=== PATIENT | female | born 1935 | race Caucasian/White ===

== ENCOUNTER → 2019-11-20 07:01 | Outpatient (CLI) | payer MEDICARE, SELFPAY ==
[2019-11-10 08:52] VITALS: BMI 28.5
--- NOTE | 2019-11-20 10:33 | STRESSREP_ITS ---
Stress Test Report Exercise myocardial perfusion stress test. 84-year-old lady with a history of chest pain. Stress protocol Resting KG demonstrates sinus bradycardia with a rate of 56 bpm normal intervals are noted resting blood pressure is 142/86 mmHg. Patient exercised according to the regular Yannick protocol for a total duration of 4 minutes. The maximum heart rate was 148 bpm which was 108% of maximum predicted heart rate the maximum workload was 5.8 metabolic equivalents. At rest there were no ST or T wave changes noted suggest ischemia at peak exercise mildly downsloping ST depression was noted in lead III and aVF and upsloping ST depression noted in lead II. No clinical angina was noted the test was terminated due to dyspnea and leg fat igue. No clinical angina was noted. The resting blood pressure was 142/86 with a peak blood pressure 172/70. Myocardial perfusion protocol. 10.0 mCi of technetium 99m sestamibi was injected at rest. The patient exercised according to regular Yannick protocol for 4 minutes. At peak exercise 35.0 mCi of technetium 99m sestamibi was injected stress images were obtained stress and rest images were reconstructed and compared in the short axis vertical and horizontal long axis. Gated images were also obtained Perfusion SPECT analysis: Review of the stress images demonstrate normal uptake of tracer noted in all areas of myocardium the resting images similar demonstrate normal uptake of tracer noted in all areas of myocardium no reversibility is no suggest ischemia no previous infarct is noted per Gated SPECT analysis: The gated ejection fraction is 77%. Conclusion: Normal exercise myocardial perfusion stress test. Low to moderate workload. Preserved ejection fraction.
== END ==
PROVIDERS: PCP Internal Medicine; Referring Provider Internal Medicine Cardiovascular Disease; Visit Provider Internal Medicine Cardiovascular Disease
DX: Z95.1 Presence of aortocoronary bypass graft (principal)
CPT/HCPCS: 78452; 93017; A9500; A4216

== ENCOUNTER → 2020-06-09 15:44 | Outpatient (CLI) | payer MEDICARE, SELFPAY ==
[2020-06-09 12:03] VITALS: BMI 26.7
[2020-06-09 16:04] LABS: Absolute Lymphocyte Count 1.77 X10^3/uL (0.83-4.51); Basophil# 0.05 X10^3/uL; Basophil% 0.6 % (0-1); Eosinophil# 0.21 X10^3/uL; Eosinophils% 2.3 % (0-5); Hematocrit 31.1 % (37-47); Hemoglobin 9.4 g/dL (12.0-15.0); Lymphocyte # 1.77 X10^3/ul (4.0); Lymphocyte % 19.7 % (19-41); Mean Corp Hgb Conc 30.2 g/dL (32-36); Mean Corpuscular Volume 79.3 fL (81-99); Mean Platelet Vol. 10.4 fl (6.2-12.0); Monocyte# 0.93 X10^3/uL; Monocyte% 10.4 % (0-10); NRBC Flagged by Analyzer 0 % (0-5); Neutrophil # 5.98 X10^3/uL (2.7-7.7); Neutrophil % 66.6 % (47-70); Platelet Count 318 K/mm3 (150-450); RBC Distribution Width CV 15.9 % (11.6-14.6); RBC Distribution Width SD 45.6 fl (35.1-43.9); Red Blood Count 3.92 M/mm3 (4.2-5.4)
== END ==
PROVIDERS: PCP Internal Medicine; Referring Provider Internal Medicine Cardiovascular Disease; Visit Provider Internal Medicine Cardiovascular Disease
DX: R00.2 Palpitations (principal)
CPT/HCPCS: 36415; 85025

== ENCOUNTER → 2020-06-23 06:23 | Outpatient (CLI) | payer MEDICARE, SELFPAY ==
[2020-06-09 12:03] VITALS: BMI 26.7
--- NOTE | 2020-06-24 10:57 | STRESSREP ---
Stress Test Report Pharmacologic myocardial perfusion stress test. 84-year-old lady with a history of coronary artery disease. Stress protocol: Resting EKG demonstrates sinus bradycardia with a rate of 56 bpm normal intervals are noted resting blood pressure is 138/76 mmHg. 0.4 mg of regadenoson was infused per usual protocol followed by rapid intravenous saline flush injection continuous EKG monitoring was performed. The maximum heart rate attained was 131 bpm which was 95% of maximum predicted heart rate the maximum workload was 1 metabolic equivalent. At rest there were no ST or T wave changes to suggest ischemia and at peak exercise nonspecific ST-T wave changes were noted. The final blood pressure was 126/66. Myocardial perfusion protocol. 11.1 mCi of technetium 99m sestamibi was injected at rest. 0.4 mg of regadenoson was infused per usual protocol. At peak infusion 33.1 mCi of technetium 99m sestamibi was injected stress images were obtained stress and rest images were reconstructed and compared in the short axis vertical long horizontal long axis. Gated images were also obtained Perfusion SPECT analysis: Review of the stress images demonstrate normal uptake of tracer noted in all areas of the myocardium the resting images similar demonstrate normal uptake of tracer noted in all areas of the myocardium. No reversibility is noted to suggest ischemia no previous infarct is noted. Gated SPECT analysis: The gated ejection fraction is 80%. Conclusion: Normal pharmacologic myocardial perfusion stress test. Preserved ejection fraction. No ischemia noted.
== END ==
PROVIDERS: PCP Internal Medicine; Referring Provider Internal Medicine Cardiovascular Disease; Visit Provider Internal Medicine Cardiovascular Disease
DX: I25.10 Atherosclerotic heart disease of native coronary artery without angina pectoris (principal); Z95.1 Presence of aortocoronary bypass graft
CPT/HCPCS: 78452; 93017; A9500; A4216; J2785

== ENCOUNTER 2020-12-26 17:24 | Emergency (ER) | payer MEDICARE, SELFPAY ==
[2020-12-07 10:30] VITALS: BMI 28.1
[2020-12-26 17:25] VITALS: BP 167/85; PULSE 80; RESP 16; TEMP 36.4; O2SAT 98; BMI 27.8
--- NOTE | 2020-12-26 17:47 | ED.VIS.GEN ---
History of Present Illness Chief Complaint: GI Bleed Informant: Patient Narrative: 85-year-old female presents the emergency department out of concerns for the I believe. Patient states that last fall she has had anemia. She had positive Hemoccult. She underwent a colonoscopy that was negative and capsule endoscopy that was negative. She was referred to hematology has was seen Dr. Glass. She took her self off of oral iron due to constipation. She received iron infusion last week and felt well. Over the past couple days she has felt dizzy and lightheaded. He tells me that after taking herself off of iron her stool went from black to brown and formed. Today however her stool appeared red. She called her doctors and they advised her to come to emergency. He states that yesterday she had a 7 L salad steak and cereal. She cannot recall if she had any tomatoes or drink anything red. The patient's hemoglobin on 12/08 was 9.7. Prior similar symptoms: Yes - Past Medical History (1) Anemia Status: Chronic (2) Atherosclerosis of coronary artery of [place] heart without angina pectoris Status: Chronic (3) Essential (primary) hypertension Status: Chronic (4) Hyperlipidemia Status: Chronic (5) History of TIA (transient ischemic attack) Status: Resolved Past Medical History - Allergies and Home Meds Allergies/Adverse Reactions: Allergies hydrocodone bitartrate [From Vicodin] Allergy (Verified 12/26/20 17:26) Nausea Sulfa (Sulfonamide Antibiotics) Allergy (Verified 12/26/20 17:26) Itching Primary Care Physician: Jamie Dickson MD [Primary Care Provider] - Surgical History: coronary bypass surgery Smoking Status: Former smoker Alcohol: None Drugs: None Review of Systems General: Reports: Malaise. Denies: Chills, Fever, Sweats Eyes: Denies: Visual changes - bilaterally, Diplopia ENT: Denies: Rhinorrhea, Sore throat Cardiovascular: Denies: Chest pain, Palpitations Respiratory: Denies: Dyspnea, Cough, Dyspnea on exertion Gastrointestinal: Denies: Abdominal pain, Nausea, Vomiting, Diarrhea, Melena, Hematochezia Genitourinary: Denies: Dysuria, Hematuria, Frequency Musculoskeletal: Denies: Back pain, Extremity Pain Skin: Denies: Rash, Wounds Neurological: Reports: - - Dizziness. Denies: Headache, Weakness, Numbness Physical Exam Vital Signs/Narrative: Vital Signs Temp Pulse Resp BP Pulse Ox 12/26/20 17:25 97.6 F L 80 16 167/85 H 98 Inital Vital Signs reviewed: Yes General: Well nourished, Well developed, No Acute Distress Head: Normocephalic, Atraumatic Eyes: Perrl, EOMI ENT: Moist mucous membranes, No rhinorrhea Neck: Supple, Nontender Cardiovascular: Regular rate, Regular rhythm, No murmurs Respiratory: No distress, CTA bilaterally, Chest nontender Abdomen: Soft, Nontender, Nondistended, Normal bowel sounds Rectal: Nontender - Stool appears reddish-brown but formed Back: Nontender, Normal Inspection Extremities: Nontender, No edema Skin: Normal color, No rash Neurological: Alert, Oriented x3, Cranial nerves II-XII grossly intact, Normal Strength, Normal Sensation Psychological: Normal affect, Normal Mood Diagnostic/Tx/Re-eval Laboratory Last Values WBC 6.9 K/mm3 (4.4-11.0) 12/26/20 18:00 RBC 3.68 M/mm3 (4.2-5.4) L 12/26/20 18:00 Hgb 9.9 g/dL (12.0-15.0) L 12/26/20 18:00 Hct 32.8 % (37-47) L 12/26/20 18:00 MCV 89.1 fL (81-99) 12/26/20 18:00 MCH 26.9 pg (27.0-32.0) L 12/26/20 18:00 MCHC 30.2 g/dL (32-36) L 12/26/20 18:00 RDW Std Deviation 67.2 fl (35.1-43.9) H 12/26/20 18:00 RDW Coeff of Tom 20.8 % (11.6-14.6) H 12/26/20 18:00 Plt Count 288 K/mm3 (150-450) 12/26/20 18:00 MPV 10.3 fl (6.2-12.0) 12/26/20 18:00 Immature Gran % (Auto) 0.700 % (0.0-0.9) 12/26/20 18:00 Neut % (Auto) 62.2 % (47-70) 12/26/20 18:00 Lymph % (Auto) 24.0 % (19-41) 12/26/20 18:00 [place] % (Auto) 10.1 % (0-10) H 12/26/20 18:00 Eos % (Auto) 2.6 % (0-5) 12/26/20 18:00 Baso % (Auto) 0.4 % (0-1) 12/26/20 18:00 Absolute Neuts (auto) 4.3 X10^3/uL (2.0-7.7) 12/26/20 18:00 Absolute Lymphs (auto) 1.66 X10^3/uL (0.83-4.51) 12/26/20 18:00 Nucleated RBC % 0 % (0-5) 12/26/20 18:00 PT 12.7 SECONDS (11.7-14.9) 12/26/20 18:00 INR 1.0 12/26/20 18:00 APTT 28.6 Seconds (24.1-36.2) 12/26/20 18:00 Sodium 139 mmol/L (136-145) 12/26/20 18:00 Potassium 4.6 mmol/L (3.5-5.1) 12/26/20 18:00 Chloride 108 mmol/L (98-107) H 12/26/20 18:00 Carbon Dioxide 28.0 mmol/L (21.0-32.0) 12/26/20 18:00 Anion Gap 3 (5-15) L 12/26/20 18:00 BUN 23 mg/dL (7-18) H 12/26/20 18:00 Creatinine 0.89 mg/dL (0.55-1.02) 12/26/20 18:00 Estim Creat Clear Calc 40.63 ml/min 12/26/20 18:00 Est GFR (MDRD) Af Amer 77 mL/min (>60) 12/26/20 18:00 Est GFR (MDRD) Non-Af 64 mL/min (>60) 12/26/20 18:00 BUN/Creatinine Ratio 25.7 RATIO (10-20) H 12/26/20 18:00 Glucose 78 mg/dL (74-106) 12/26/20 18:00 Calcium 8.9 mg/dL (8.5-10.1) 12/26/20 18:00 Total Bilirubin 0.20 mg/dL (0.20-1.00) 12/26/20 18:00 AST 10 U/L (15-37) L 12/26/20 18:00 ALT 20 U/L (13-56) 12/26/20 18:00 Alkaline Phosphatase 71 U/L (45-117) 12/26/20 18:00 Total Protein 7.3 g/dL (6.4-8.2) 12/26/20 18:00 Albumin 3.7 g/dL (3.2-5.0) 12/26/20 18:00 Globulin 3.6 g/dL (2.2-4.2) 12/26/20 18:00 Albumin/Globulin Ratio 1.0 RATIO (0.9-2.4) 12/26/20 18:00 - Medical Decision Making Patient's vital signs at rest are normal. Orthostatics are negative. Her hemoglobin level today is 9.9 slightly up from her 9.7 earlier this month. Her stool was formed. It is a brownish-reddish color. We know that she tested positive for blood in her stool last year despite a negative colonoscopy and capsule endoscopy. I do wonder if this could be something she ate and that she will always test positive as she may have a slow bleed that has not been identified yet. As she otherwise appears stable I recommend that we go home and observe her stool. If it returns back to brown is most likely something she ate. If she continues to feel symptomatic she should have her hemoglobin rechecked and certainly if her stool is changing she needs to be rechecked. She is welcome to return here at any point. Patient and her family are comfortable with this plan ED Disposition - Plan for ED Patient: Disposition: Home or Assisted Living Diagnosis: Anemia, GI bleed Instructions: ED Lower GI Bleeding (Stable) Referrals: Jamie Dickson MD [Primary Care Provider] - 3-5 Days
[2020-12-26 18:07] LABS: Absolute Lymphocyte Count 1.66 X10^3/uL (0.83-4.51); Absolute Neutrophil Count 4.3 X10^3/uL (2.0-7.7); Basophil# 0.03 X10^3/uL; Basophil% 0.4 % (0-1); Eosinophil# 0.18 X10^3/uL; Eosinophils% 2.6 % (0-5); Hematocrit 32.8 % (37-47); Hemoglobin 9.9 g/dL (12.0-15.0); Lymphocyte # 1.66 X10^3/ul (4.0); Mean Corp Hgb Conc 30.2 g/dL (32-36); Mean Corpuscular Hgb 26.9 pg (27.0-32.0); Mean Corpuscular Volume 89.1 fL (81-99); Mean Platelet Vol. 10.3 fl (6.2-12.0); Monocyte% 10.1 % (0-10); NRBC Flagged by Analyzer 0 % (0-5); Neutrophil # 4.29 X10^3/uL (2.7-7.7); Neutrophil % 62.2 % (47-70); POSITIVE MORPHOLOGY YES; Platelet Count 288 K/mm3 (150-450); RBC Distribution Width CV 20.8 % (11.6-14.6); RBC Distribution Width SD 67.2 fl (35.1-43.9); Red Blood Count 3.68 M/mm3 (4.2-5.4); White Blood Count 6.9 K/mm3 (4.4-11.0)
[2020-12-26 18:09] LABS: Differential Indicated SCAN CRITERIA MET
[2020-12-26 18:15] LABS: Prothrombin Time (Protime)PT. 12.7 SECONDS (11.7-14.9)
[2020-12-26 18:16] LABS: Partial Thromboplast Time 28.6 Seconds (24.1-36.2)
[2020-12-26 18:23] LABS: AST(SGOT) 10 U/L (15-37); Alanine Aminotransfer ALT/SGPT 20 U/L (13-56); Albumin, Serum 3.7 g/dL (3.2-5.0); Alkaline Phosphatase 71 U/L (45-117); Anion Gap 3 (5-15); BUN 23 mg/dL (7-18); BUN/Creat Ratio 25.7 RATIO (10-20); Calcium,Total 8.9 mg/dL (8.5-10.1); Chloride 108 mmol/L (98-107); Creatinine, Serum 0.89 mg/dL (0.55-1.02); EST Glomerular Filtration Rate 64 mL/min (>60); Est Glom Filt Rate - Afr Amer 77 mL/min (>60); Estimated Creatinine Clearance 40.63 ml/min; Globulin 3.6 g/dL (2.2-4.2); Glucose 78 mg/dL (74-106); Potassium 4.6 mmol/L (3.5-5.1); Protein, Total 7.3 g/dL (6.4-8.2); Sodium Level 139 mmol/L (136-145)
[2020-12-26 18:30] LABS: Differential Comment SCANNED
[2020-12-26 18:50] VITALS: BP 138/65; BP 145/75; BP 150/75; PULSE 69; PULSE 71; PULSE 86
[2020-12-26 19:23] VITALS: BP 137/69; PULSE 70; RESP 16; O2SAT 96
== END 2020-12-26 19:26 | disposition home or self-care (01) ==
PROVIDERS: Emergency Provider Emergency Medicine; PCP Internal Medicine
DX: D64.9 Anemia, unspecified (principal); K92.2 Gastrointestinal hemorrhage, unspecified; I25.10 Atherosclerotic heart disease of native coronary artery without angina pectoris; E78.5 Hyperlipidemia, unspecified; I10 Essential (primary) hypertension; Z87.891 Personal history of nicotine dependence; Z86.73 Personal history of transient ischemic attack (TIA), and cerebral infarction without residual deficits; Z79.82 Long term (current) use of aspirin
CPT/HCPCS: 80053; 82274; 85025; 85610; 85730; 99285

== ENCOUNTER 2021-02-17 11:29 | Emergency (ER) | payer MEDICARE, SELFPAY ==
[2021-02-17 11:31] VITALS: BP 145/81; PULSE 86; RESP 17; TEMP 36.3; O2SAT 99; BMI 27.8
--- NOTE | 2021-02-17 11:51 | EDS_ITS ---
HPI History of Present Illness Chief Complaint: GI Bleed Informant: patient and family Narrative Narrative: 85-year-old female history of anemia presents with bright red rectal bleeding of 2 weeks duration. Patient tells me that her issues began in June. She became anemic and there has not been any source of her bleeding. She states that in October she had an EGD and colonoscopy with Dr. Schaffer. She states that looked okay other than diverticulosis. She states that she has had capsule endoscopy. She is received iron infusions. Over the past 2 weeks she has noted bright red blood with bowel movements. She took a laxative last night and had several bowel movements this morning with bright red blood. She states that she feels tired and dizzy. She states she needs to figure out why this is happening to her because she cannot keep going like this. She denies any syncope or chest pain. She currently sees Dr. Glass for her anemia. Dr. Dickson is primary care. She reports that she had blood work done [address] Dickson and her red blood cell count was 9 something. Using clinic think I see that her hemoglobin level on February 15 was 9.3 with an MCV of 85.9. She states that Dr. Glass wanted her to come and get iron studies done. She had iron studies done on that showed an iron level of 43 and a TIBC of 296. [facility] Medical History Anemia Atherosclerosis of coronary artery of [place] heart without angina pectoris Carotid artery stenosis COVID-19 virus detected (03/2020) Dyspnea on exertion Encounter for long-term current use of high risk medication Essential (primary) hypertension GERD (gastroesophageal reflux disease) History of TIA (transient ischemic attack) (08/2018) Hyperlipidemia Hypothyroidism Idiopathic peripheral neuropathy Near syncope (10/28/19) Home Medications acetaminophen 325 mg PO Q6H PRN PRN 10/25/16 [History Last Taken Unknown] pantoprazole 40 mg PO DAILY 10/25/16 [History Last Taken 10/25/16] nitroglycerin 0.4 mg SUBLINGUAL Q5M PRN #30 tab 10/26/16 [Rx Last Taken Unknown] rosuvastatin 20 mg tablet 20 mg PO QDAY 02/11/18 [History Last Taken Unknown] calcium carbonate-vitamin D3 600 mg (1,500 mg)-400 unit capsule 1 cap PO DAILY cap 01/20/19 [History Last Taken Unknown] doxycycline hyclate 20 mg tablet 20 mg PO BID PRN tab 01/20/19 [History Last Taken Unknown] aspirin 81 mg tablet,delayed release 81 mg PO QDAY #90 tab 03/24/19 [Rx Last Taken Unknown] losartan 50 mg tablet 50 mg PO DAILY 11/09/19 [History Last Taken Unknown] lorazepam 0.5 mg tablet 0.5 mg PO BID PRN tab 06/09/20 [History Last Taken Unknown] ascorbic acid (vitamin C) 500 mg tablet 500 mg PO DAILY 12/07/20 [History Last Taken Unknown] biotin 5 mg capsule 5 mg PO DAILY 12/07/20 [History Last Taken Unknown] diphenhydramine 25 mg-acetaminophen 500 mg tablet 1 tab PO QHS 12/07/20 [History Last Taken Unknown] ferrous sulfate 325 mg (65 mg iron) tablet 325 mg PO BID tab 12/07/20 [History Last Taken Unknown] levothyroxine 75 mcg tablet 75 mcg PO .COMPLEX 12/07/20 [History Last Taken Unknown] Allergy/AdvReac Type Severity Reaction Status Date / Time hydrocodone bitartrate Allergy Nausea Verified 02/17/21 11:30 [From Vicodin] Sulfa (Sulfonamide Allergy Itching Verified 02/17/21 11:30 Antibiotics) Family History Sister CAD (coronary artery disease) Sister , Age 79 CVA (cerebral vascular accident) Cancer Surgical History H/O coronary artery bypass surgery (10/24/15) H/O foot surgery H/O foot surgery H/O tubal ligation History of appendectomy History of colonoscopy History of left heart catheterization (10/24/15) History of tubal ligation Hx of appendectomy Hx of cholecystectomy Hx of cholecystectomy Social History Smoking Status: Never smoker how long ago did patient quit smokin years ago alcohol intake: never substance use type: does not use caffeine: No what type of physical activity do you participate in: other details: silver sneakers seatbelt use: always do you feel safe at home: Yes ROS ROS ED Constitutional Constitutional ED: Reports other Details: Lightheadedness fatigue ; Denies chills or weight loss Eyes Eyes: Denies change in vision or diplopia ENT ENT ED: Denies ear pain, rhinorrhea or sore throat Cardiovascular Cardiovascular: Denies chest pain, orthopnea, palpitations or racing heartbeat Respiratory/Chest Respiratory/Chest: Denies cough, dyspnea or orthopnea Gastrointestinal Gastrointestinal: Reports hematochezia; Denies abdominal pain, diarrhea, nausea or vomiting Genitourinary Genitourinary ED: Denies dysuria, hematuria or urinary frequency Musculoskeletal Musculoskeletal: Denies arthralgias or myalgias Integumentary Denies abscess or rash Neurologic Neurologic: Denies headache(s) or weakness Psychiatric Psychiatric: Denies anxiety, depression, suicidal ideation or suicidal thoughts Endocrine Endocrinology: Denies polydipsia, polyphagia or polyuria Allergic/Immunologic Allergic/Immunologic ED: Denies mouth swelling, tongue swelling or urticaria EXAM Physical Exam Const Vital Signs: 02/17/21 11:31 02/17/21 12:14 02/17/21 12:26 Temperature 97.4 F L Temperature Source Temporal Pulse Rate 86 Pulse Rate [Lying] 73 Pulse Rate [Sitting] 70 Pulse Rate [Standing] 81 Respiratory Rate 17 Respiratory Effort Normal Non-Labored Respiratory Pattern Normal Blood Pressure 145/81 H Blood Pressure [Lying] 138/66 H Blood Pressure [Sitting] 145/74 H Blood Pressure [Standing] 152/79 H Blood Pressure Mean 102 Blood Pressure Mean [Lying] 90 Blood Pressure Mean [Sitting] 97 Blood Pressure Mean [Standing] 103 Pulse Ox 99 Oxygen Delivery Method Room Air Positive well nourished and well developed General Appearance ED: well developed HEENT Reports normocephalic, head/scalp atraumatic and moist mucous membranes Eyes PERRL and EOMs intact bilaterally Neck no lymphadenopathy, supple and no JVD Resp normal respiratory effort and clear to auscultation bilaterally Cardio regular rate, regular rhythm and no murmurs GI normal to inspection, nondistended, normoactive bowel sounds and non-tender Palpation: soft Back/Spine no CVA tenderness and normal ROM Extremity normal to inspection General Extremety ED: Negative for edema General Extremity: Negative for edema Neuro oriented x3 and CN's II-XII intact bilaterally Sensorium / Orientation: alert Motor Exam: strength 5/5 throughout Psych mental status grossly normal Mood & Affect: Negative for depressed or tearful Skin no rashes or lesions noted and no wounds MDM MDM MDM Narrative Medical decision making narrative: Patient's hemoglobin is 8.7. This is down from 9.32 days ago. She has had no active bleeding since she has been here in the department. She is not orthostatic. While the patient may eventually have enough blood loss to be required transfusion she is not there right now. Not sure there is anything specific we would be able to do for her in the hospital other than observe her. She understands this. I did speak with Dr. Schaffer and will reach out to Dr. Glass. Patient will need to follow-up return if worsening. She understands return instructions Lab Data Labs: Laboratory Results - last 24 hr 02/17/21 02/17/21 02/17/21 12:05 12:05 12:05 WBC 8.8 RBC 3.35 L Hgb 8.7 L Hct 28.4 L MCV 84.8 MCH 26.0 L MCHC 30.6 L RDW Std Deviation 52.4 H RDW Coeff of Tom 16.9 H Plt Count 333 MPV 10.4 Immature Gran % (Auto) 0.600 Neut % (Auto) 70.9 H Lymph % (Auto) 16.2 L [place] % (Auto) 11.3 H Eos % (Auto) 0.8 Baso % (Auto) 0.2 Absolute Neuts (auto) 6.2 Absolute Lymphs (auto) 1.42 Nucleated RBC % 0 PT 12.8 INR 1.0 APTT 30.1 Sodium 136 Potassium 4.3 Chloride 105 Carbon Dioxide 28.0 Anion Gap 3 L BUN 29 H Creatinine 0.88 Estim Creat Clear Calc 41.09 Est GFR (MDRD) Af Amer 78 Est GFR (MDRD) Non-Af 65 BUN/Creatinine Ratio 32.8 H Glucose 79 Calcium 8.6 Total Bilirubin 0.20 AST 5 L ALT 15 Alkaline Phosphatase 68 Total Protein 7.3 Albumin 3.5 Globulin 3.8 Albumin/Globulin Ratio 0.9 Urine Color Urine Clarity Urine pH Ur Specific [place] Urine Protein Urine Glucose (UA) Urine Ketones Urine Occult Blood Urine Nitrite Urine Bilirubin Urine Urobilinogen Ur Leukocyte Esterase Urine RBC Urine WBC Ur Squamous Epith Cells Urine Bacteria Urine Mucus 02/17/21 12:25 WBC RBC Hgb Hct MCV MCH MCHC RDW Std Deviation RDW Coeff of Tom Plt Count MPV Immature Gran % (Auto) Neut % (Auto) Lymph % (Auto) [place] % (Auto) Eos % (Auto) Baso % (Auto) Absolute Neuts (auto) Absolute Lymphs (auto) Nucleated RBC % PT INR APTT Sodium Potassium Chloride Carbon Dioxide Anion Gap BUN Creatinine Estim Creat Clear Calc Est GFR (MDRD) Af Amer Est GFR (MDRD) Non-Af BUN/Creatinine Ratio Glucose Calcium Total Bilirubin AST ALT Alkaline Phosphatase Total Protein Albumin Globulin Albumin/Globulin Ratio Urine Color Straw Urine Clarity Clear Urine pH 6.5 Ur Specific [place] 1.010 Urine Protein Negative Urine Glucose (UA) Normal Urine Ketones Negative Urine Occult Blood 25 H Urine Nitrite Negative Urine Bilirubin Negative Urine Urobilinogen Normal Ur Leukocyte Esterase 500 H Urine RBC 0 SEEN Urine WBC >100 SEEN Ur Squamous Epith Cells 0-5 SEEN Urine Bacteria 0 SEEN Urine Mucus 0 SEEN Discharge Plan Triage Chief Complaint: GI Bleed ED Provider: Zachariah Antonio Dx/Rx/DC Orders Clinical Impression: Acute lower GI bleeding, Anemia Instructions: ED Lower GI Bleeding (Stable) Prescriptions: No Action rosuvastatin [Crestor] 20 mg tablet 20 mg PO QDAY RF: 0 doxycycline hyclate 20 mg tablet 20 mg PO BID PRN (Reason: rosacea) RF: 0 aspirin [Adult Low Dose Aspirin] 81 mg tablet,delayed release (DR/EC) 81 mg PO QDAY Qty: 90 RF: 5 calcium carbonate-vitamin D3 [Calcium 600 with Vitamin D3] 600 mg(1,500mg) - 400 unit capsule 1 cap PO DAILY RF: 0 lorazepam 0.5 mg tablet 0.5 mg PO BID PRN (Reason: Anxiety) RF: 0 losartan [Cozaar] 50 mg tablet 50 mg PO DAILY RF: 0 diphenhydramine-acetaminophen [Tylenol PM Extra Strength] 25-500 mg tablet 1 tab PO QHS RF: 0 ascorbic acid (vitamin C) 500 mg tablet 500 mg PO DAILY RF: 0 ferrous sulfate 325 mg (65 mg iron) tablet 325 mg PO BID RF: 0 biotin 5 mg capsule 5 mg PO DAILY RF: 0 acetaminophen 325 MG tablet 325 mg PO Q6H PRN PRN (Reason: PAIN/FEVER) RF: 0 pantoprazole 40 MG tablet 40 mg PO DAILY RF: 0 nitroglycerin 0.4 MG tablet 0.4 mg SUBLINGUAL Q5M PRN (Reason: Chest Pain) Qty: 30 RF: 0 levothyroxine 75 mcg tablet 75 mcg PO .COMPLEX RF: 0 Primary Care Provider: Jamie Dickson Referrals: Yang Glass DO [STAFF PHYSICIAN] - Keep Kayley appointment Jamie Dickson MD [Primary Care Provider] - 3-5 Days if not improving Activity Restrictions/Additional Instructions: Do monitor your bleeding and if over the weekend you are feeling worse and your blood loss has increased we can certainly see where your red blood cell count is out. At the current time you are not in need of a blood transfusion. We understand that this can be a very frustrating process as there are many patients that are in a similar condition. Disposition Disposition: Home, self care
[2021-02-17 12:15] LABS: Absolute Lymphocyte Count 1.42 X10^3/uL (0.83-4.51); Absolute Neutrophil Count 6.2 X10^3/uL (2.0-7.7); Basophil# 0.02 X10^3/uL; Basophil% 0.2 % (0-1); Eosinophil# 0.07 X10^3/uL; Eosinophils% 0.8 % (0-5); Hematocrit 28.4 % (37-47); Hemoglobin 8.7 g/dL (12.0-15.0); Lymphocyte # 1.42 X10^3/ul (0.83-4.51); Lymphocyte % 16.2 % (19-41); Mean Corp Hgb Conc 30.6 g/dL (32-36); Mean Corpuscular Volume 84.8 fL (81-99); Mean Platelet Vol. 10.4 fl (6.2-12.0); Monocyte# 0.99 X10^3/uL; Monocyte% 11.3 % (0-10); NRBC Flagged by Analyzer 0 % (0-5); Neutrophil # 6.23 X10^3/uL (2.7-7.7); Neutrophil % 70.9 % (47-70); Platelet Count 333 K/mm3 (150-450); RBC Distribution Width CV 16.9 % (11.6-14.6); RBC Distribution Width SD 52.4 fl (35.1-43.9); Red Blood Count 3.35 M/mm3 (4.2-5.4); White Blood Count 8.8 K/mm3 (4.4-11.0)
[2021-02-17 12:20] LABS: Prothrombin Time (Protime)PT. 12.8 SECONDS (11.7-14.9)
[2021-02-17 12:21] LABS: Partial Thromboplast Time 30.1 Seconds (24.1-36.2)
[2021-02-17 12:26] VITALS: BP 138/66; BP 145/74; BP 152/79; PULSE 70; PULSE 73; PULSE 81
[2021-02-17 12:38] LABS: ALB/GLOB Ratio 0.9 RATIO (0.9-2.4); AST(SGOT) 5 U/L (15-37); Alanine Aminotransfer ALT/SGPT 15 U/L (13-56); Albumin, Serum 3.5 g/dL (3.2-5.0); Alkaline Phosphatase 68 U/L (45-117); Anion Gap 3 (5-15); BUN 29 mg/dL (7-18); BUN/Creat Ratio 32.8 RATIO (10-20); Calcium,Total 8.6 mg/dL (8.5-10.1); Chloride 105 mmol/L (98-107); Creatinine, Serum 0.88 mg/dL (0.55-1.02); EST Glomerular Filtration Rate 65 mL/min (>60); Est Glom Filt Rate - Afr Amer 78 mL/min (>60); Estimated Creatinine Clearance 41.09 ml/min; Globulin 3.8 g/dL (2.2-4.2); Glucose 79 mg/dL (74-106); Potassium 4.3 mmol/L (3.5-5.1); Protein, Total 7.3 g/dL (6.4-8.2); Sodium Level 136 mmol/L (136-145)
[2021-02-17 13:26] LABS: Bacteria 0 SEEN /hpf (None Seen); Mucous, Urine 0 SEEN /hpf (<or=2+); Red Blood Cells-Urine 0 SEEN /hpf (0-5)
[2021-02-17 13:28] LABS: Color, Urine Straw (Yellow); Glucose, Dipstick Normal (Normal); Ketone-Dipstick Negative (Negative); Leukocyte Esterase-Dipstick 500 /ul (Negative); Nitrite-Dipstick Negative (Negative); Occult Blood-Urine 25 /ul (Negative); Protein-Dipstick Negative (Negative); Urine Bilirubin Dipstick Negative (Negative); Urine Clarity Clear (Clear); Urine Urobilinogen Normal (Normal); Urine pH 6.5 (5.0 - 8.0)
[2021-02-17 13:36] LABS: Squamous Epithelial Cells - UA 0-5 SEEN /hpf (5-10); White Blood Cells >100 SEEN /hpf (0-5)
[2021-02-17 14:27] VITALS: BP 138/74; PULSE 66; RESP 15; O2SAT 97
== END 2021-02-17 14:38 | disposition home or self-care (01) ==
PROVIDERS: Emergency Provider Emergency Medicine; PCP Internal Medicine
DX: K92.2 Gastrointestinal hemorrhage, unspecified (principal); D64.9 Anemia, unspecified; E03.9 Hypothyroidism, unspecified; E78.5 Hyperlipidemia, unspecified; I10 Essential (primary) hypertension; I25.10 Atherosclerotic heart disease of native coronary artery without angina pectoris; K21.9 Gastro-esophageal reflux disease without esophagitis; Z79.82 Long term (current) use of aspirin; Z87.891 Personal history of nicotine dependence; Z86.73 Personal history of transient ischemic attack (TIA), and cerebral infarction without residual deficits; Z86.16 Personal history of COVID-19
CPT/HCPCS: 80053; 81001; 85025; 85610; 85730; 99285; A4216

== ENCOUNTER → 2021-03-10 08:58 | Outpatient (CLI) | payer MEDICARE, SELFPAY ==
[2021-02-17 11:31] VITALS: BMI 27.8
[2021-03-10 10:33] VITALS: BP 125/58; PULSE 68; RESP 16; TEMP 35.8; O2SAT 98; BMI 27.8
[2021-03-10 10:52] VITALS: BP 113/55; PULSE 68; RESP 16; TEMP 35.8; O2SAT 97
[2021-03-10 11:52] VITALS: BP 124/68; PULSE 68; RESP 16; TEMP 35.7; O2SAT 99
[2021-03-10 12:58] VITALS: BP 119/55; PULSE 70; RESP 16; TEMP 35.7; O2SAT 97
== END ==
PROVIDERS: PCP Internal Medicine; Referring Provider Internal Medicine Hematology & Oncology; Visit Provider Internal Medicine Hematology & Oncology
DX: D50.0 Iron deficiency anemia secondary to blood loss (chronic) (principal)
CPT/HCPCS: 36430; 86850; 86900; 86901; 86920; 86922; J7040; J7050; P9016; A4216

== ENCOUNTER 2021-03-25 16:25 | Observation (INO) | payer MEDICARE, SELFPAY ==
[2021-03-10 10:33] VITALS: BMI 27.8
[2021-03-25 16:26] VITALS: BP 128/64; PULSE 73; RESP 14; TEMP 36.5; O2SAT 98; BMI 28.2
--- NOTE | 2021-03-25 17:00 | EDS_ITS ---
HPI HPI - GI History of Present Illness Chief Complaint: GI Bleed Informant: patient and family Nausea/Vomiting/Emesis GI Symptom: Negative for Nausea and Vomiting Diarrhea/Melena/Hematochezia GI Symptom: Positive for Hematochezia Onset: Today Severity: Mild Associated Symptoms Associated Symptoms: Negative for Dysuria and Frequency Narrative Narrative: 85-year-old female history of prior GI bleeds. Recent colonoscopy by Dr. José from the [facility] on . They did a biopsy the ruling out she does not have a mass in her also considering ischemic colitis. She is currently on no blood thinners she stopped her aspirin weeks ago and prior to that stop Plavix. She received a blood transfusion 1 unit about 3 weeks ago. She denies any abdominal pain. States today she has had several episodes of blood coating the toilet bowl but no significant clots. She denies any hematemesis. No black stool. She also has a history of a triple bypass and hypertension. Prior similar symptoms: Yes Recent Illness/Hospitalization: No PFSH PFSH Medical History Anemia Atherosclerosis of coronary artery of [place] heart without angina pectoris Carotid artery stenosis COVID-19 virus detected (03/2020) Dyspnea on exertion Encounter for long-term current use of high risk medication Essential (primary) hypertension GERD (gastroesophageal reflux disease) History of TIA (transient ischemic attack) (08/2018) Hyperlipidemia Hypothyroidism Idiopathic peripheral neuropathy Near syncope (10/28/19) Home Medications acetaminophen 325 mg PO Q6H PRN PRN 10/25/16 [History Last Taken Unknown] pantoprazole 40 mg PO DAILY 10/25/16 [History Last Taken 10/25/16] rosuvastatin 20 mg tablet 20 mg PO QDAY 02/11/18 [History Last Taken Unknown] calcium carbonate-vitamin D3 600 mg (1,500 mg)-400 unit capsule 1 cap PO DAILY cap 01/20/19 [History Last Taken Unknown] doxycycline hyclate 20 mg tablet 20 mg PO BID PRN tab 01/20/19 [History Last Taken Unknown] aspirin 81 mg tablet,delayed release 81 mg PO QDAY #90 tab 03/24/19 [Rx Last Taken Unknown] losartan 50 mg tablet 50 mg PO DAILY 11/09/19 [History Last Taken Unknown] lorazepam 0.5 mg tablet 0.5 mg PO BID PRN tab 06/09/20 [History Last Taken Unknown] ascorbic acid (vitamin C) 500 mg tablet 500 mg PO DAILY 12/07/20 [History Last Taken Unknown] levothyroxine 75 mcg tablet 75 mcg PO .COMPLEX 12/07/20 [History Last Taken Unknown] Allergy/AdvReac Type Severity Reaction Status Date / Time hydrocodone bitartrate Allergy Nausea Verified 03/25/21 16:27 [From Vicodin] Sulfa (Sulfonamide Allergy Itching Verified 03/25/21 16:27 Antibiotics) Family History Sister CAD (coronary artery disease) Sister , Age 79 CVA (cerebral vascular accident) Cancer Surgical History H/O coronary artery bypass surgery (10/24/15) H/O foot surgery H/O foot surgery H/O tubal ligation History of appendectomy History of colonoscopy History of left heart catheterization (10/24/15) History of tubal ligation Hx of appendectomy Hx of cholecystectomy Hx of cholecystectomy Social History Smoking Status: Never smoker how long ago did patient quit smokin years ago alcohol intake: never substance use type: does not use caffeine: No what type of physical activity do you participate in: other details: silver sneakers seatbelt use: always do you feel safe at home: Yes ROS ROS ED ROS Narrative She denies any recent illness. Review of Systems ROS Unobtainable: Denies due to encephalopathy Constitutional Constitutional ED: Denies fever(s) ENT ENT ED: Denies ear pain or sore throat Cardiovascular Cardiovascular: Denies chest pain Respiratory/Chest Respiratory/Chest: Denies cough or dyspnea Gastrointestinal Gastrointestinal: Denies abdominal pain, constipation, diarrhea, nausea or vomiting Genitourinary Genitourinary ED: Denies dysuria Musculoskeletal Musculoskeletal: Denies myalgias Integumentary Denies rash Neurologic Neurologic: Denies headache(s) Psychiatric Psychiatric: Denies depression Endocrine Endocrinology: Denies polyuria Hematologic/Lymphatic Hematologic/Lymphatic: Denies easy bruising Allergic/Immunologic Allergic/Immunologic ED: Denies urticaria EXAM Physical Exam Narrative Exam Narrative: Older female no acute distress. Vital signs stable afebrile. Initial blood pressure 128/64. Lungs are clear. Heart regular rhythm rate about 70. Abdomen soft nontender. Moving all extremities. Const Vital Signs: 03/25/21 16:26 03/25/21 17:14 Temperature 97.7 F L Temperature Source Temporal Pulse Rate 73 Pulse Rate [Lying] 70 Pulse Rate [Sitting] 72 Pulse Rate [Standing] 72 Respiratory Rate 14 Blood Pressure 128/64 H Blood Pressure [Lying] 106/45 L Blood Pressure [Sitting] 117/51 L Blood Pressure [Standing] 121/57 H Blood Pressure Mean 85 Blood Pressure Mean [Lying] 65 Blood Pressure Mean [Sitting] 73 Blood Pressure Mean [Standing] 78 Pulse Ox 98 Oxygen Delivery Method Room Air HEENT Reports moist mucous membranes normocephalic and atraumatic; Negative for trauma or tenderness Eyes PERRL and EOMs intact bilaterally Neck no lymphadenopathy, supple and no JVD General: Negative for tenderness Resp normal respiratory effort and clear to auscultation bilaterally Cardio regular rate, regular rhythm, S1 normal heart sound, S2 normal heart sound and no murmurs GI non-tender, non-distended and no masses Auscultation: normoactive bowel sounds Palpation: soft and tender Back/Spine no CVA tenderness General Back: Negative for CVA tenderness Extremity full ROM General Extremety ED: Negative for edema or tenderness General Extremity: Negative for edema Neuro CN's II-XII intact bilaterally and moves all extremities Sensorium / Orientation: alert, oriented to person, oriented to place and oriented to time Psych mental status grossly normal Skin Rashes: no rashes MDM MDM MDM Narrative Medical decision making narrative: 85-year-old female history of GI bleeds currently being worked up by GI at the [facility]. Had increased rectal bleeding today. On no anticoagulation. Has been transfused in the past. Repeat exam patient is doing well at 6:13 PM. She and I went over test results they are comfortable with her staying in the hospital overnight. Patient's had no further bleeding while in the emergency department. Hospitalist is on page. Lab Data Attestation: I reviewed the patient's lab results. Lab results narrative: CBC White count 7. Hemoglobin 9.2 which is her baseline chronic anemia no worse. PT/INR normal. Electrolytes unremarkable gap 7 creatinine 0.9. Glucose 135. Labs: Laboratory Results - last 24 hr 03/25/21 03/25/21 03/25/21 16:55 16:55 16:55 WBC 7.4 RBC 3.32 L Hgb 9.2 L Hct 30.2 L MCV 91.0 MCH 27.7 MCHC 30.5 L RDW Std Deviation 73.4 H RDW Coeff of Tom 22.0 H Plt Count 263 MPV 11.7 Immature Gran % (Auto) 0.400 Neut % (Auto) 72.3 H Lymph % (Auto) 16.2 L [place] % (Auto) 10.2 H Eos % (Auto) 0.5 Baso % (Auto) 0.4 Absolute Neuts (auto) 5.3 Absolute Lymphs (auto) 1.19 Nucleated RBC % 0 Platelet Estimate ADEQUATE Polychromasia RARE Hypochromasia 2+ Anisocytosis 2+ Microcytosis 1+ PT 12.9 INR 1.0 Sodium 140 Potassium 3.5 Chloride 107 Carbon Dioxide 26.0 Anion Gap 7 BUN 16 Creatinine 0.90 Estim Creat Clear Calc 36.80 Est GFR (MDRD) Af Amer 76 Est GFR (MDRD) Non-Af 63 BUN/Creatinine Ratio 17.7 Glucose 135 H Calcium 8.4 L Discharge Plan Triage Chief Complaint: GI Bleed ED Provider: Jeff Angeles Dx/Rx/DC Orders Clinical Impression: Acute lower gastrointestinal bleeding Prescriptions: No Action rosuvastatin [Crestor] 20 mg tablet 20 mg PO QDAY RF: 0 doxycycline hyclate 20 mg tablet 20 mg PO BID PRN (Reason: rosacea) RF: 0 aspirin [Adult Low Dose Aspirin] 81 mg tablet,delayed release (DR/EC) 81 mg PO QDAY Qty: 90 RF: 5 calcium carbonate-vitamin D3 [Calcium 600 with Vitamin D3] 600 mg(1,500mg) - 400 unit capsule 1 cap PO DAILY RF: 0 lorazepam 0.5 mg tablet 0.5 mg PO BID PRN (Reason: Anxiety) RF: 0 losartan [Cozaar] 50 mg tablet 50 mg PO DAILY RF: 0 ascorbic acid (vitamin C) 500 mg tablet 500 mg PO DAILY RF: 0 acetaminophen 325 MG tablet 325 mg PO Q6H PRN PRN (Reason: PAIN/FEVER) RF: 0 pantoprazole 40 MG tablet 40 mg PO DAILY RF: 0 levothyroxine 75 mcg tablet 75 mcg PO .COMPLEX RF: 0 Primary Care Provider: Jamie Dickson Referrals: Jamie Dickson MD [Primary Care Provider] - Disposition Disposition: Acute Care Hospital [facility]
[2021-03-25] MEDS: 0.9% Normal Saline 1,000 ML 1000 ML IV (17:12)
[2021-03-25 17:14] VITALS: BP 106/45; BP 117/51; BP 121/57; PULSE 70; PULSE 72
[2021-03-25 17:24] LABS: Absolute Lymphocyte Count 1.19 X10^3/uL (0.83-4.51); Absolute Neutrophil Count 5.3 X10^3/uL (2.0-7.7); Basophil# 0.03 X10^3/uL; Basophil% 0.4 % (0-1); Eosinophil# 0.04 X10^3/uL; Eosinophils% 0.5 % (0-5); Hematocrit 30.2 % (37-47); Hemoglobin 9.2 g/dL (12.0-15.0); Lymphocyte # 1.19 X10^3/ul (0.83-4.51); Lymphocyte % 16.2 % (19-41); Mean Corp Hgb Conc 30.5 g/dL (32-36); Mean Corpuscular Hgb 27.7 pg (27.0-32.0); Mean Platelet Vol. 11.7 fl (6.2-12.0); Monocyte# 0.75 X10^3/uL; Monocyte% 10.2 % (0-10); NRBC Flagged by Analyzer 0 % (0-5); Neutrophil # 5.32 X10^3/uL (2.7-7.7); Neutrophil % 72.3 % (47-70); POSITIVE COUNT YES; POSITIVE MORPHOLOGY YES; Platelet Count 263 K/mm3 (150-450); RBC Distribution Width SD 73.4 fl (35.1-43.9); Red Blood Count 3.32 M/mm3 (4.2-5.4); White Blood Count 7.4 K/mm3 (4.4-11.0)
[2021-03-25 17:31] LABS: Differential Indicated SCAN CRITERIA MET
[2021-03-25 17:37] LABS: Prothrombin Time (Protime)PT. 12.9 SECONDS (11.7-14.9)
[2021-03-25 17:38] LABS: Anion Gap 7 (5-15); BUN 16 mg/dL (7-18); BUN/Creat Ratio 17.7 RATIO (10-20); Calcium,Total 8.4 mg/dL (8.5-10.1); Chloride 107 mmol/L (98-107); EST Glomerular Filtration Rate 63 mL/min (>60); Est Glom Filt Rate - Afr Amer 76 mL/min (>60); Glucose 135 mg/dL (74-106); Potassium 3.5 mmol/L (3.5-5.1); Sodium Level 140 mmol/L (136-145)
[2021-03-25 18:07] LABS: Anisocytosis 2+; Hypochromasia 2+; Microcytosis 1+; Platelet Estimate ADEQUATE (ADEQ); Polychromasia RARE
--- NOTE | 2021-03-25 18:18 | HP.PCM.HOS_ITS ---
HPI - General HPI Narrative SAMANTHA TROY, is a 85 F with a PMH as outlined who presents via the ED on 03/25/2021 with a complaint of rectal bleeding. 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 She had more painless rectal bleeding today and had multiple episodes with associated clots. She is not on any blood thinners. Hemoglobin was 9.2 on admission, which is around her baseline. Vitals were essentially stable. She has been admitted to be managed for recurrent lower GI bleed, likely due to diverticular disease [facility] Medical History Anemia Atherosclerosis of coronary artery of [place] heart without angina pectoris Carotid artery stenosis COVID-19 virus detected (03/2020) Dyspnea on exertion Encounter for long-term current use of high risk medication Essential (primary) hypertension GERD (gastroesophageal reflux disease) History of TIA (transient ischemic attack) (08/2018) Hyperlipidemia Hypothyroidism Idiopathic peripheral neuropathy Near syncope (10/28/19) Home Medications acetaminophen 325 mg PO Q6H PRN PRN 10/25/16 [History Last Taken Unknown] pantoprazole 40 mg PO DAILY 10/25/16 [History Last Taken 10/25/16] rosuvastatin 20 mg tablet 20 mg PO QDAY 02/11/18 [History Last Taken Unknown] calcium carbonate-vitamin D3 600 mg (1,500 mg)-400 unit capsule 1 cap PO DAILY cap 01/20/19 [History Last Taken Unknown] doxycycline hyclate 20 mg tablet 20 mg PO BID PRN tab 01/20/19 [History Last Taken Unknown] aspirin 81 mg tablet,delayed release 81 mg PO QDAY #90 tab 03/24/19 [Rx Last Taken Unknown] losartan 50 mg tablet 50 mg PO DAILY 11/09/19 [History Last Taken Unknown] lorazepam 0.5 mg tablet 0.5 mg PO BID PRN tab 06/09/20 [History Last Taken Unknown] ascorbic acid (vitamin C) 500 mg tablet 500 mg PO DAILY 12/07/20 [History Last Taken Unknown] levothyroxine 75 mcg tablet 75 mcg PO .COMPLEX 12/07/20 [History Last Taken Unknown] Allergy/AdvReac Type Severity Reaction Status Date / Time hydrocodone bitartrate Allergy Nausea Verified 03/25/21 16:27 [From Vicodin] Sulfa (Sulfonamide Allergy Itching Verified 03/25/21 16:27 Antibiotics) Family History Sister CAD (coronary artery disease) Sister , Age 79 CVA (cerebral vascular accident) Cancer Surgical History H/O coronary artery bypass surgery (10/24/15) H/O foot surgery H/O foot surgery H/O tubal ligation History of appendectomy History of colonoscopy History of left heart catheterization (10/24/15) History of tubal ligation Hx of appendectomy Hx of cholecystectomy Hx of cholecystectomy Social History Smoking Status: Never smoker how long ago did patient quit smokin years ago alcohol intake: never substance use type: does not use caffeine: No what type of physical activity do you participate in: other details: silver sneakers seatbelt use: always do you feel safe at home: Yes ROS Constitutional Constitutional: Denies anorexia, change in weight, chills, fatigue, fever(s), malaise or weakness ENT HEENT: Denies headache(s) or nasal congestion Cardiovascular Cardiovascular: Denies chest pain, dyspnea on exertion, edema, lightheadedness, orthopnea, palpitations or rapid heart rate Respiratory/Chest Respiratory/Chest: Denies cough, dyspnea, productive cough, shortness of breath at rest or shortness of breath with exertion Gastrointestinal Gastrointestinal: Reports hematochezia; Denies abdominal pain, coffee ground emesis, constipation, diarrhea, dyspepsia, hematemesis, loose stools, melena, nausea or vomiting Genitourinary Genitourinary: Denies burning urination or dysuria Musculoskeletal Musculoskeletal: Denies arthralgias Neurologic Neurologic: Reports abnormal gait; Denies confusion, dizziness or focal weakness Psychiatric Psychiatric: Denies anxiety Hematologic/Lymphatic Hematologic/Lymphatic: Reports anemia Allergic/Immunologic Allergic/Immunologic: Denies asthma Vital Signs Vital Signs Vital Signs: 03/25/21 16:26 03/25/21 17:14 Temperature 97.7 F L Temperature Source Temporal Pulse Rate 73 Pulse Rate [Lying] 70 Pulse Rate [Sitting] 72 Pulse Rate [Standing] 72 Respiratory Rate 14 Blood Pressure 128/64 H Blood Pressure [Lying] 106/45 L Blood Pressure [Sitting] 117/51 L Blood Pressure [Standing] 121/57 H Blood Pressure Mean 85 Blood Pressure Mean [Lying] 65 Blood Pressure Mean [Sitting] 73 Blood Pressure Mean [Standing] 78 Pulse Ox 98 Oxygen Delivery Method Room Air Weight Weight: 154 lb 5.177 oz Body Mass Index (BMI) 28.2 Physical Exam Const alert and oriented x3 General Appearance: cooperative HEENT normocephalic, head/scalp atraumatic, hearing grossly normal bilaterally and moist oral mucous membranes Eyes PERRL, EOMs intact bilaterally and conjunctivae normal Neck no lymphadenopathy, supple and no JVD Resp normal respiratory effort, no retractions, no use of accessory muscles and clear to auscultation bilaterally Cardio regular rate, regular rhythm, S1 normal heart sound, S2 normal heart sound and no murmurs GI normal to inspection, nondistended, normoactive bowel sounds, soft to palpation, non-tender and non-distended Extremity normal to inspection, full ROM and no clubbing, cyanosis or edema Peripheral Pulses: Yes pulses 2+ throughout Skin no rashes or lesions noted Neuro oriented x3 Sensorium / Orientation: awake and alert Psych affect normal Results Lab / Micro Data Result Diagrams: 03/25/21 16:55 03/25/21 16:55 Labs: Laboratory Results - last 24 hr 03/25/21 03/25/21 03/25/21 16:55 16:55 16:55 WBC 7.4 RBC 3.32 L Hgb 9.2 L Hct 30.2 L MCV 91.0 MCH 27.7 MCHC 30.5 L RDW Std Deviation 73.4 H RDW Coeff of Tom 22.0 H Plt Count 263 MPV 11.7 Immature Gran % (Auto) 0.400 Neut % (Auto) 72.3 H Lymph % (Auto) 16.2 L [place] % (Auto) 10.2 H Eos % (Auto) 0.5 Baso % (Auto) 0.4 Absolute Neuts (auto) 5.3 Absolute Lymphs (auto) 1.19 Nucleated RBC % 0 Platelet Estimate ADEQUATE Polychromasia RARE Hypochromasia 2+ Anisocytosis 2+ Microcytosis 1+ PT 12.9 INR 1.0 Sodium 140 Potassium 3.5 Chloride 107 Carbon Dioxide 26.0 Anion Gap 7 BUN 16 Creatinine 0.90 Estim Creat Clear Calc 36.80 Est GFR (MDRD) Af Amer 76 Est GFR (MDRD) Non-Af 63 BUN/Creatinine Ratio 17.7 Glucose 135 H Calcium 8.4 L Blood Type Antibody Screen 03/25/21 16:55 WBC RBC Hgb Hct MCV MCH MCHC RDW Std Deviation RDW Coeff of Tom Plt Count MPV Immature Gran % (Auto) Neut % (Auto) Lymph % (Auto) [place] % (Auto) Eos % (Auto) Baso % (Auto) Absolute Neuts (auto) Absolute Lymphs (auto) Nucleated RBC % Platelet Estimate Polychromasia Hypochromasia Anisocytosis Microcytosis PT INR Sodium Potassium Chloride Carbon Dioxide Anion Gap BUN Creatinine Estim Creat Clear Calc Est GFR (MDRD) Af Amer Est GFR (MDRD) Non-Af BUN/Creatinine Ratio Glucose Calcium Blood Type O POSITIVE Antibody Screen NEGATIVE Assessment & Plan Assessment/Plan (1) Acute lower GI bleeding: (2) Anemia: PLAN: #Acute lower GI bleed * possibly due to diverticular bleed. 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 Hemoglobin is currently at her baseline of 9.2. * Hydrate gently with IV fluids. Monitor for further bleeding. * Consult general surgery- Dr Grayson informed * #History of CAD s/p CABG: aspirin in her med rec, but says she hasnt taken it in a long while. On statin #Benign essential hypertension : On losartan #Hyperlipidemia: On statin DVT prophylaxis: SCDs. No anticoagulation in light of GI bleed CODE STATUS: Full code * Patient and son counseled about differences between full code, DNR CCA and DNR CC. * Patient elects to be full code. * total face to face time 17 mins Charges/Coding Visit Charges OBSV E&M: 48491 Initial observation care L3 Procedures Hospitalists Procedures: 66798 Advncd Care Plan 30 Min
[2021-03-25 18:21] VITALS: BP 131/61; PULSE 66; RESP 16; O2SAT 98
[2021-03-25 18:22] VITALS: BP 131/61; PULSE 66; RESP 16; TEMP 36.5; O2SAT 98
[2021-03-25] MEDS: 0.9% Normal Saline 1,000 ML 150 ML IV (18:25)
[2021-03-25 19:24] VITALS: BMI 27.8
[2021-03-25 20:10] VITALS: BP 132/56; PULSE 60; RESP 16; TEMP 36.9; O2SAT 99
[2021-03-25] MEDS: Atorvastatin Calcium 40 MG Tablet PO (22:04)
[2021-03-25 23:01] VITALS: PULSE 62
[2021-03-26] VITALS (7 sets, daily range): BP systolic 122–143; BP diastolic 46–63; PULSE 61–75; RESP 16–18; TEMP 36.6–36.8; O2SAT 97–99
[2021-03-26] MEDS: 0.9% Normal Saline 1,000 ML 150 ML IV ×2 (00:49→06:48)
[2021-03-26] MEDS: Acetaminophen 500 MG Tablet PO (00:50)
[2021-03-26] MEDS: DiphenhydrAMINE 25 MG Capsule PO (00:50)
[2021-03-26 06:13] LABS: Absolute Lymphocyte Count 1.25 X10^3/uL (0.83-4.51); Absolute Neutrophil Count 2.3 X10^3/uL (2.0-7.7); Basophil# 0.02 X10^3/uL; Basophil% 0.5 % (0-1); Eosinophil# 0.08 X10^3/uL; Eosinophils% 1.9 % (0-5); Hematocrit 25.7 % (37-47); Hemoglobin 7.9 g/dL (12.0-15.0); Lymphocyte # 1.25 X10^3/ul (0.83-4.51); Lymphocyte % 30.4 % (19-41); Mean Corp Hgb Conc 30.7 g/dL (32-36); Mean Corpuscular Hgb 28.1 pg (27.0-32.0); Mean Corpuscular Volume 91.5 fL (81-99); Mean Platelet Vol. 10.1 fl (6.2-12.0); Monocyte# 0.41 X10^3/uL; NRBC Flagged by Analyzer 0 % (0-5); Neutrophil # 2.32 X10^3/uL (2.7-7.7); Neutrophil % 56.5 % (47-70); POSITIVE MORPHOLOGY YES; Platelet Count 259 K/mm3 (150-450); RBC Distribution Width CV 21.6 % (11.6-14.6); RBC Distribution Width SD 72.7 fl (35.1-43.9); Red Blood Count 2.81 M/mm3 (4.2-5.4); White Blood Count 4.1 K/mm3 (4.4-11.0)
[2021-03-26 06:27] LABS: Differential Indicated SCAN CRITERIA MET
[2021-03-26 06:38] LABS: Anion Gap 3 (5-15); BUN 10 mg/dL (7-18); BUN/Creat Ratio 14.2 RATIO (10-20); Calcium,Total 7.7 mg/dL (8.5-10.1); Chloride 116 mmol/L (98-107); EST Glomerular Filtration Rate 84 mL/min (>60); Est Glom Filt Rate - Afr Amer 102 mL/min (>60); Estimated Creatinine Clearance 36.16 ml/min; Glucose 86 mg/dL (74-106); Potassium 3.5 mmol/L (3.5-5.1); Sodium Level 144 mmol/L (136-145)
[2021-03-26] MEDS: Losartan Potassium 50 MG Tablet PO (09:51)
[2021-03-26] MEDS: Calcium Carb/Vitamin D 1 TABLET Tablet PO (09:51)
[2021-03-26] MEDS: Pantoprazole Sodium 40 MG Tablet PO (09:51)
[2021-03-26] MEDS: Ascorbic Acid 500 MG Tablet PO (09:51)
--- NOTE | 2021-03-26 11:13 | NURSING ---
Pt took off her telly monitor and is dressed. Pt states she is ready to go home. Dr. Casillas stated that she wanted her to have a full liquid diet and then after that if she tolerates will send home. Pt is aware.
--- NOTE | 2021-03-26 11:43 | DS.PCM_ITS ---
Providers Date of Admission: 03/25/21 Primary Care Physician: Dr. Jamie Dickson MD Consultations 03/25/21 19:24 Consult: General Surgery Routine Consulting Provider: Sybil Grayson Reason for Consult: lower GI bleed EMERGENT Consult: No MD Notified: Yes Date Notified: 03/25/21 Time Notified: 18:48 Method of Notification: Verbal Reason For Visit: LOWER GI BLEED Diagnosis Discharge Diagnosis (1) Acute lower GI bleeding: Status: Acute Code(s): K92.2 - Gastrointestinal hemorrhage, unspecified (2) Anemia: Status: Acute Code(s): D64.9 - Anemia, unspecified Medications at Discharge Home Medications acetaminophen 325 mg PO Q6H PRN PRN 10/25/16 pantoprazole 40 mg PO DAILY 10/25/16 rosuvastatin 20 mg tablet 20 mg PO QHS 02/11/18 calcium carbonate-vitamin D3 600 mg (1,500 mg)-400 unit capsule 1 cap PO DAILY cap 01/20/19 doxycycline hyclate 20 mg tablet 20 mg PO BID PRN tab 01/20/19 losartan 50 mg tablet 50 mg PO DAILY 11/09/19 lorazepam 0.5 mg tablet 0.5 mg PO BID PRN tab 06/09/20 ascorbic acid (vitamin C) 500 mg tablet 500 mg PO DAILY 12/07/20 levothyroxine 75 mcg tablet 75 mcg PO [id number] 12/07/20 Hospital Course Operations None Procedures None Summary of Care Provided Minutes Spent on Discharge: 35 Hospital Course: SAMANTHA TROY, is a 85 F with a PMH as outlined who presents via the ED on 03/25/2021 with a complaint of rectal bleeding. 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 She had more painless rectal bleeding on the day of admission and had multiple episodes with associated clots. She is not on any blood thinners. Hemoglobin was 9.2 on admission, which is around her baseline. Vitals were essentially stable. She has been admitted to be managed for recurrent lower GI bleed, likely due to diverticular disease. She was kept n.p.o. and hydrated with IV fluids. She did not have any recurrence of the rectal bleeding throughout her stay in the hospital. Hemoglobin dropped to 7.9 on the day of discharge. However she remained hemodynamically stable and there may have been a dilutional component as well as platelets and WBCs also dropped. General surgery was consulted and I discussed case with Dr. Georges. In light of patient not having any recurrence of her bleeding and having recently had a colonoscopy just 2 days prior to admission at [facility] as well as remained hemodynamically stable, decision was made to discharge patient home on 03/26/2020. She is to follow-up with her primary care doctor and is to have a follow-up CBC on outpatient basis with her PCP to monitor her hemoglobin. Patient seen and examined prior to discharge. She had no complaints and felt well. Review of systems otherwise negative. Labs and vitals reviewed. Home medication reviewed and reconciled. Physical Exam Const alert, oriented x3 and no apparent distress General Appearance: cooperative, comfortable, well kempt and well developed HEENT normocephalic, head/scalp atraumatic, hearing grossly normal bilaterally and moist oral mucous membranes Eyes PERRL, EOMs intact bilaterally and conjunctivae normal Neck no lymphadenopathy, supple and no JVD Resp normal respiratory effort, no retractions, no use of accessory muscles and clear to auscultation bilaterally Cardio regular rate, regular rhythm, S1 normal heart sound, S2 normal heart sound and no murmurs GI normal to inspection, nondistended, normoactive bowel sounds, soft to palpation, non-tender and non-distended Extremity normal to inspection, full ROM and no clubbing, cyanosis or edema Skin no rashes or lesions noted Neuro oriented x3 Sensorium / Orientation: awake and alert Psych affect normal Weight / BMI Weight Weight: 162 lb 4.8 oz Body Mass Index (BMI) 27.8 ABG / Lab / Microbiology Data Result Diagrams: 03/26/21 05:47 03/26/21 05:47 Laboratory: Laboratory Results - last 24 hr 03/25/21 03/25/21 03/25/21 16:55 16:55 16:55 WBC 7.4 RBC 3.32 L Hgb 9.2 L Hct 30.2 L MCV 91.0 MCH 27.7 MCHC 30.5 L RDW Std Deviation 73.4 H RDW Coeff of Tom 22.0 H Plt Count 263 MPV 11.7 Immature Gran % (Auto) 0.400 Neut % (Auto) 72.3 H Lymph % (Auto) 16.2 L [place] % (Auto) 10.2 H Eos % (Auto) 0.5 Baso % (Auto) 0.4 Absolute Neuts (auto) 5.3 Absolute Lymphs (auto) 1.19 Nucleated RBC % 0 Platelet Estimate ADEQUATE Polychromasia RARE Hypochromasia 2+ Anisocytosis 2+ Microcytosis 1+ PT 12.9 INR 1.0 Sodium 140 Potassium 3.5 Chloride 107 Carbon Dioxide 26.0 Anion Gap 7 BUN 16 Creatinine 0.90 Estim Creat Clear Calc 36.80 Est GFR (MDRD) Af Amer 76 Est GFR (MDRD) Non-Af 63 BUN/Creatinine Ratio 17.7 Glucose 135 H Calcium 8.4 L Blood Type Antibody Screen 03/25/21 03/26/21 03/26/21 16:55 05:47 05:47 WBC 4.1 L RBC 2.81 L Hgb 7.9 L Hct 25.7 L MCV 91.5 MCH 28.1 MCHC 30.7 L RDW Std Deviation 72.7 H RDW Coeff of Tom 21.6 H Plt Count 259 MPV 10.1 Immature Gran % (Auto) 0.700 Neut % (Auto) 56.5 Lymph % (Auto) 30.4 [place] % (Auto) 10.0 Eos % (Auto) 1.9 Baso % (Auto) 0.5 Absolute Neuts (auto) 2.3 Absolute Lymphs (auto) 1.25 Nucleated RBC % 0 Platelet Estimate Polychromasia Hypochromasia Anisocytosis Microcytosis PT INR Sodium 144 Potassium 3.5 Chloride 116 H Carbon Dioxide 25.0 Anion Gap 3 L BUN 10 Creatinine 0.70 Estim Creat Clear Calc 36.16 Est GFR (MDRD) Af Amer 102 Est GFR (MDRD) Non-Af 84 BUN/Creatinine Ratio 14.2 Glucose 86 Calcium 7.7 L Blood Type O POSITIVE Antibody Screen NEGATIVE D/C Instructions Discharge Diet: 2000 mg Sodium Diet Discharge Activity: Return to Normal Activity Meaningful Use Info Meaningful Use Diagnoses (Choose all that apply): None applicable Discharge Plan Admission Admit Date/Time: 03/25/21 18:29 Primary Reason for Your Visit: rectal bleeding Attending Provider: Anna Casillas Primary Care Provider: Jamie Dickson Consulting Providers: Sybil Grayson Instructions Patient Instructions: Anemia, ED Lower GI Bleeding (Stable) Additional Instructions / Restrictions: call PCP's office tomorrow for CBC order to follow up on Hb. Discharge Orders/Prescriptions Prescriptions: Continued rosuvastatin [Crestor] 20 mg tablet 20 mg PO QHS RF: 0 doxycycline hyclate 20 mg tablet 20 mg PO BID PRN (Reason: rosacea) RF: 0 calcium carbonate-vitamin D3 [Calcium 600 with Vitamin D3] 600 mg(1,500mg) - 400 unit capsule 1 cap PO DAILY RF: 0 lorazepam 0.5 mg tablet 0.5 mg PO BID PRN (Reason: Anxiety) RF: 0 losartan [Cozaar] 50 mg tablet 50 mg PO DAILY RF: 0 ascorbic acid (vitamin C) 500 mg tablet 500 mg PO DAILY RF: 0 acetaminophen 325 MG tablet 325 mg PO Q6H PRN PRN (Reason: PAIN/FEVER) RF: 0 pantoprazole 40 MG tablet 40 mg PO DAILY RF: 0 levothyroxine 75 mcg tablet 75 mcg [facility] RF: 0 Discontinued aspirin [Adult Low Dose Aspirin] 81 mg tablet,delayed release (DR/EC) 81 mg PO QDAY Qty: 90 RF: 5 Referrals / Follow Up: Jamie Dickson MD [Primary Care Provider] - Within 1 Week Disposition Discharge Orders: Discharge Patient (Routine); Ordered 03/26/21 Ordered By: Dr. Anna Casillas Charges/Coding Visit Charges OBSV E&M: 80250 Observation care discharge
== END 2021-03-26 12:35 ==
LOC: ED 18:15 → MS3 19:42
PROVIDERS: Admitting Provider Student in an Organized Health Care Education/Training Program; Emergency Provider Emergency Medicine; PCP Internal Medicine; Visit Provider Student in an Organized Health Care Education/Training Program
DX: K92.1 Melena (principal); D64.9 Anemia, unspecified; I10 Essential (primary) hypertension; I25.10 Atherosclerotic heart disease of native coronary artery without angina pectoris; K21.9 Gastro-esophageal reflux disease without esophagitis; E78.5 Hyperlipidemia, unspecified; E03.9 Hypothyroidism, unspecified; G60.9 Hereditary and idiopathic neuropathy, unspecified; Z86.73 Personal history of transient ischemic attack (TIA), and cerebral infarction without residual deficits; Z79.899 Other long term (current) drug therapy; Z79.82 Long term (current) use of aspirin; Z86.16 Personal history of COVID-19; Z95.1 Presence of aortocoronary bypass graft; Z87.19 Personal history of other diseases of the digestive system
CPT/HCPCS: 36415; 80048; 85025; 85610; 86850; 86900; 86901; 96360; 96361; 99218; 99285; J7030; A4216; G0378

== ENCOUNTER 2021-08-07 08:36 | Inpatient (IN) | payer MEDICARE, SELFPAY ==
[2021-08-07] VITALS (10 sets, daily range): BP systolic 132–155; BP diastolic 62–78; PULSE 68–91; RESP 16–18; TEMP 36.3–36.9; O2SAT 95–98; BMI 26.9
--- NOTE | 2021-08-07 09:25 | CT_ITS ---
STUDY: CT ABDOMEN AND PELVIS WITH CONTRAST REASON FOR EXAM: Female, 86 years old. Abdominal pain. Prior history of colon cancer and resection. RADIATION DOSAGE (If Supplied By Facility): CTDIvol = ( 14.36 ) mGy, DLP = ( 965.28 ) mGycm TECHNIQUE: Transaxial images were obtained from the dome of the diaphragm to the symphysis pubis without oral contrast. 100 ml isovue 300 was administered. Sagittal and coronal images were reconstructed. Individualized dose optimization techniques were used for this CT. COMPARISON: None. FINDINGS: Minimal increased linear markings at the lung bases suggest mild atelectasis and/or scarring. Coronary artery calcification. There is decreased attenuation of the liver consistent with steatosis. The patient is status post cholecystectomy. There is a 1 cm cyst in the lateral midportion of the spleen. Normal pancreas. Normal bilateral adrenal glands. Normal right kidney. Normal left kidney. There is a small hiatal hernia. Normal small intestine. The patient is status post right hemicolectomy. Surgical anastomosis is seen in the transverse colon. There is a marked degree of bladder distention with air fluid and fecal material within the transverse colon. The transverse colon extends into the upper pelvis. There is evidence of fluid filled left hemicolon down to the rectum. The appendix is visualized and appears normal. There is diffuse atherosclerotic calcification of the abdominal aorta and its major visceral branches, without a demonstrated aneurysm. Normal inferior vena cava. Normal retroperitoneum. Normal urinary bladder. Normal abdominal wall. There are diffuse degenerative changes of the visualized lumbar spine. CT/Abdomen/Pelvis W IV Cont ONLY IMPRESSION: The patient is status post right hemicolectomy with anastomosis in the mid transverse colon. There is evidence of a markedly dilated portion of the transverse colon with fluid and fecal material. Fluid is seen throughout the left hemicolon down to the rectum. Questionable close loop obstruction. Please correlate with the operative note. Electronically Signed: Rodríguez Bauman MD at 11:00 EDT , Service support ,
--- NOTE | 2021-08-07 09:25 | EKG12_ITS ---
Test Reason : ABDOMINAL PAIN Blood Pressure : / mmHG Vent. Rate : 085 BPM Atrial Rate : 085 BPM P-R Int : 144 ms QRS Dur : 080 ms QT Int : 382 ms P-R-T Axes : 056 012 009 degrees QTc Int : 454 ms Normal sinus rhythm Normal ECG Confirmed by THAIS BAEZ, JENNIFER ([id number]), supervising film or videotape editor WILBERTO VILLASENOR ([id number]) on 08/09/2021 8:22:33 AM Referred By: PARRISH Confirmed By:JENNIFER PLASCENCIA MD
--- NOTE | 2021-08-07 09:26 | ED.VIS.GI ---
HPI HPI - GI History of Present Illness Chief Complaint: Abd Pain Informant: patient and family Narrative Narrative: Patient presents with worsening abdominal pain, not passing gas or stool. Patient started with abdominal pain a couple weeks ago. She feels this started somewhere around the time of starting hydrocortisone. It sounds like this was started for a low serum cortisol level. Last week she reports having a CAT scan that showed diverticulitis. She was started on 2 antibiotics that sound like Cipro and Flagyl. This caused quite a bit of GI upset so they were stopped at the end of this past week. Her symptoms then got worse Saturday and when she came in today. She has diffuse abdominal discomfort that does tend to be lower more than upper. She has not moved her bowels in about 2 or 3 days. She is not passing gas. She denies nausea at this time but got a transient period of nausea without vomiting this morning. She denies fevers or chills. No urinary symptoms. No blood in the stool. Only anticoagulation she takes is baby aspirin. She also has a history of colon cancer with partial colectomy back in March. No radiation. No chemotherapy but she does take Keytruda. She is also had cholecystectomy, appendectomy and tubal ligation. [facility] Medical History Anemia Atherosclerosis of coronary artery of [place] heart without angina pectoris Carotid artery stenosis Coronary artery disease COVID-19 virus detected (03/2020) Dyspnea on exertion Encounter for long-term current use of high risk medication Essential (primary) hypertension GERD (gastroesophageal reflux disease) History of TIA (transient ischemic attack) (08/2018) Hyperlipidemia Hypertension Hypothyroidism Idiopathic peripheral neuropathy Near syncope (10/28/19) Smoker Wears hearing aid in both ears Home Medications pantoprazole 40 mg PO DAILY 10/25/16 [History Last Taken 08/07/21] rosuvastatin 20 mg tablet 20 mg PO QHS 02/11/18 [History Last Taken 08/06/21] doxycycline hyclate 20 mg tablet 20 mg PO BID PRN tab 01/20/19 [History Last Taken Unknown] losartan 50 mg tablet 50 mg PO DAILY 11/09/19 [History Last Taken 08/06/21] lorazepam 0.5 mg tablet 0.5 mg PO BID PRN tab 06/09/20 [History Last Taken Unknown] ascorbic acid (vitamin C) 500 mg tablet 500 mg PO DAILY 12/07/20 [History Last Taken 03/25/21 10:00] levothyroxine 75 mcg tablet 75 mcg PO MOTUWETHFRSA 12/07/20 [History Last Taken 08/07/21] Keytruda 1 dose IV BOLUS CONT 08/07/21 [History Last Taken 07/28/21] acetaminophen 500 mg PO DAILY PRN 08/07/21 [History Last Taken 08/06/21] aspirin [Aspirin Low Dose] 81 mg PO DAILY 08/07/21 [History Last Taken 08/06/21] diphenhydramine-acetaminophen [Acetaminophen PM] 1 tab PO QHS PRN 08/07/21 [History Last Taken 08/06/21] docusate sodium 300 mg PO DAILY 08/07/21 [History Last Taken 3 Days Ago ~08/04/21] hydrocortisone 5 mg PO DAILY 08/07/21 [History Last Taken 08/07/21] Allergy/AdvReac Type Severity Reaction Status Date / Time hydrocodone bitartrate Allergy Nausea Verified 03/25/21 16:27 [From Vicodin] Sulfa (Sulfonamide Allergy Itching Verified 03/25/21 16:27 Antibiotics) Family History (Updated 08/07/21 @ 14:[address] Greta Jonas MD) Sister CAD (coronary artery disease) Sister , Age 79 CVA (cerebral vascular accident) Cancer Father Pulmonary embolism Surgical History H/O coronary artery bypass surgery (10/24/15) H/O foot surgery H/O foot surgery H/O tubal ligation History of appendectomy History of colonoscopy History of left heart catheterization (10/24/15) History of tubal ligation Hx of appendectomy Hx of cholecystectomy Hx of cholecystectomy Social History (Updated 08/07/21 @ 14:[address] Greta Jonas MD) household members: other details: Patient's grandson lives with her. Smoking Status: Former smoker how long ago did patient quit smoking: Quit 56 years prior with < 1 ppd since [age] years old. alcohol intake: never substance use type: does not use caffeine: No what type of physical activity do you participate in: other details: silver sneakers seatbelt use: always do you feel safe at home: Yes ROS ROS ED Constitutional Constitutional ED: Denies chills, fever(s) or sweats ENT ENT ED: Reports other Details: Patient has had 3 Covid vaccines. The most recent was June 05. ; Denies rhinorrhea or sore throat Cardiovascular Cardiovascular: Denies chest pain or palpitations Respiratory/Chest Respiratory/Chest: Denies cough or dyspnea Gastrointestinal Gastrointestinal: Reports abdominal pain, constipation and nausea; Denies diarrhea, melena or vomiting Genitourinary Genitourinary ED: Denies dysuria or hematuria Musculoskeletal Musculoskeletal: Denies back pain Integumentary Denies rash Neurologic Neurologic: Denies headache(s) or weakness Psychiatric Psychiatric: Denies depression Endocrine Endocrinology: Denies polydipsia or polyuria Hematologic/Lymphatic Hematologic/Lymphatic: Denies easy bleeding or easy bruising Allergic/Immunologic Allergic/Immunologic ED: Denies mouth swelling or urticaria EXAM Physical Exam Const Vital Signs: 08/07/21 08:37 08/07/21 11:10 Temperature 97.4 F L Temperature Source Temporal Pulse Rate 91 68 Respiratory Rate 18 18 Blood Pressure 155/78 H 138/76 H Blood Pressure Mean 103 96 Pulse Ox 96 96 Oxygen Delivery Method Room Air Room Air Positive well nourished and well developed General Appearance ED: well developed HEENT Reports dry mucous membranes atraumatic Mouth ED: Yes dry mucous membranes Mouth: dry mucous membranes Eyes General Eye ED: Negative for pale conjunctiva or scleral icterus Neck no JVD Resp normal respiratory effort and clear to auscultation bilaterally Auscultation: Negative for rales, rhonchi or wheezes Cardio regular rate, regular rhythm and no murmurs GI no masses GI Narrative: Patient has possibly some very subtle distention. She also has a very quiet abdomen. She has some mild nonfocal tenderness but no rebound or guarding. I feel no mass. Palpation: soft Back/Spine no CVA tenderness Extremity General Extremety ED: Negative for edema General Extremity: Negative for edema Neuro Sensorium / Orientation: alert and oriented to person Psych mental status grossly normal Skin Lesions: no lesions Rashes: no rashes MDM MDM MDM Narrative Medical decision making narrative: Patient blood work is overall unremarkable. However, her CT shows distention of the colon mostly transverse with fluid and fecal material. There is question of a closed-loop obstruction. Patient's recheck. She is feeling a bit better. Patient she had had surgery done by Dr. Miramontes at [facility]. She would prefer to stay here if possible. Dr. Meeks came down and evaluated the patient. Considering her prior surgical procedure and the CT findings he is suspicious that this is likely not closed-loop obstruction. He requested a Gastrografin enema. He will admit. I also discussed the case with the hospitalist for following medically. Lab Data Attestation: I reviewed the patient's lab results. Labs: Laboratory Results - last 24 hr 08/07/21 08/07/21 08/07/21 09:43 09:43 09:43 WBC 9.9 RBC 4.84 Hgb 11.8 L Hct 37.9 MCV 78.3 L MCH 24.4 L MCHC 31.1 L RDW Std Deviation 48.0 H RDW Coeff of Tom 16.9 H Plt Count 339 MPV 10.7 Immature Gran % (Auto) 0.400 Neut % (Auto) 79.1 H Lymph % (Auto) 9.0 L [place] % (Auto) 10.1 H Eos % (Auto) 1.0 Baso % (Auto) 0.4 Absolute Neuts (auto) 7.9 H Absolute Lymphs (auto) 0.89 Nucleated RBC % 0 Sodium 138 Potassium 3.5 Chloride 107 Carbon Dioxide 24.0 Anion Gap 7 BUN 11 Creatinine 0.90 Estim Creat Clear Calc 39.46 Est GFR (MDRD) Af Amer 76 Est GFR (MDRD) Non-Af 63 BUN/Creatinine Ratio 12.2 Glucose 116 H Lactic Acid 1.0 Calcium 9.1 Total Bilirubin 0.30 AST 14 L ALT 17 Alkaline Phosphatase 59 Troponin I High Sens 9 Total Protein 7.4 Albumin 3.3 Globulin 4.1 Albumin/Globulin Ratio 0.8 L Lipase 114 Urine Color Urine Clarity Urine pH Ur Specific [place] Urine Protein Urine Glucose (UA) Urine Ketones Urine Occult Blood Urine Nitrite Urine Bilirubin Urine Urobilinogen Ur Leukocyte Esterase Urine RBC Urine WBC Ur Squamous Epith Cells Urine Bacteria Urine Mucus 08/07/21 10:35 WBC RBC Hgb Hct MCV MCH MCHC RDW Std Deviation RDW Coeff of Tom Plt Count MPV Immature Gran % (Auto) Neut % (Auto) Lymph % (Auto) [place] % (Auto) Eos % (Auto) Baso % (Auto) Absolute Neuts (auto) Absolute Lymphs (auto) Nucleated RBC % Sodium Potassium Chloride Carbon Dioxide Anion Gap BUN Creatinine Estim Creat Clear Calc Est GFR (MDRD) Af Amer Est GFR (MDRD) Non-Af BUN/Creatinine Ratio Glucose Lactic Acid Calcium Total Bilirubin AST ALT Alkaline Phosphatase Troponin I High Sens Total Protein Albumin Globulin Albumin/Globulin Ratio Lipase Urine Color Yellow Urine Clarity Clear Urine pH 6.0 Ur Specific [place] 1.020 Urine Protein 30 H Urine Glucose (UA) Normal Urine Ketones Negative Urine Occult Blood 10 H Urine Nitrite Negative Urine Bilirubin Negative Urine Urobilinogen Normal Ur Leukocyte Esterase 500 H Urine RBC 0 SEEN Urine WBC 0-5 SEEN Ur Squamous Epith Cells 0-5 SEEN Urine Bacteria 0 SEEN Urine Mucus 0 SEEN Radiography Diagnostic Testing: Clinical Impression(s) from Imaging Studies Abdomen/Pelvis CT 08/07/21 09:25 IMPRESSION: The patient is status post right hemicolectomy with anastomosis in the mid transverse colon. There is evidence of a markedly dilated portion of the transverse colon with fluid and fecal material. Fluid is seen throughout the left hemicolon down to the rectum. Questionable close loop obstruction. Please correlate with the operative note. Electronically Signed: Rodríguez Bauman MD at 11:00 EDT , Service support , Therapeutic Barium Enema Intussusception 08/07/21 13:02 IMPRESSION: Findings suggest the obstruction in the distal transverse colon at the level of splenic flexure. The patient could not tolerate anymore pressure at this time. Electronically Signed: Rodríguez Bauman MD at 14:22 EDT , Service support , EKG Initial EKG: Comments: EKG done for abdominal pain and elderly read by me. EKG shows sinus rhythm with rate of 85. No ectopy. No acute ST elevation or depression. ND interval, QRS duration and QTc are normal. Discharge Plan Dx/Rx/DC Orders Clinical Impression: Bowel obstruction, Abdominal pain, History of colon cancer Disposition Disposition: Acute Care Hospital [facility] Discharge Date/Time: 08/07/21 14:58
[2021-08-07] MEDS: Morphine 2 MG/ML Syringe IV (09:48)
[2021-08-07 09:53] LABS: Absolute Lymphocyte Count 0.89 X10^3/uL (0.83-4.51); Absolute Neutrophil Count 7.9 X10^3/uL (2.0-7.7); Basophil# 0.04 X10^3/uL; Basophil% 0.4 % (0-1); Hematocrit 37.9 % (37-47); Hemoglobin 11.8 g/dL (12.0-15.0); Lymphocyte # 0.89 X10^3/ul (0.83-4.51); Mean Corp Hgb Conc 31.1 g/dL (32-36); Mean Corpuscular Hgb 24.4 pg (27.0-32.0); Mean Corpuscular Volume 78.3 fL (81-99); Mean Platelet Vol. 10.7 fl (6.2-12.0); Monocyte% 10.1 % (0-10); NRBC Flagged by Analyzer 0 % (0-5); Neutrophil # 7.87 X10^3/uL (2.7-7.7); Neutrophil % 79.1 % (47-70); Platelet Count 339 K/mm3 (150-450); RBC Distribution Width CV 16.9 % (11.6-14.6); Red Blood Count 4.84 M/mm3 (4.2-5.4); White Blood Count 9.9 K/mm3 (4.4-11.0)
[2021-08-07 10:10] LABS: ALB/GLOB Ratio 0.8 RATIO (0.9-2.4); AST(SGOT) 14 U/L (15-37); Alanine Aminotransfer ALT/SGPT 17 U/L (13-56); Albumin, Serum 3.3 g/dL (3.2-5.0); Alkaline Phosphatase 59 U/L (45-117); Anion Gap 7 (5-15); BUN 11 mg/dL (7-18); BUN/Creat Ratio 12.2 RATIO (10-20); Calcium,Total 9.1 mg/dL (8.5-10.1); Chloride 107 mmol/L (98-107); EST Glomerular Filtration Rate 63 mL/min (>60); Est Glom Filt Rate - Afr Amer 76 mL/min (>60); Estimated Creatinine Clearance 39.46 ml/min; Globulin 4.1 g/dL (2.2-4.2); Glucose 116 mg/dL (74-106); Lipase 114 U/L (73-393); Potassium 3.5 mmol/L (3.5-5.1); Protein, Total 7.4 g/dL (6.4-8.2); Sodium Level 138 mmol/L (136-145); Troponin-I HS 9 pg/mL (3.0-54.0)
[2021-08-07 10:40] LABS: Bacteria 0 SEEN /hpf (None Seen); Mucous, Urine 0 SEEN /hpf (<or=2+); Red Blood Cells-Urine 0 SEEN /hpf (0-5)
[2021-08-07 11:05] LABS: Color, Urine Yellow (Yellow); Glucose, Dipstick Normal (Normal); Ketone-Dipstick Negative (Negative); Leukocyte Esterase-Dipstick 500 /ul (Negative); Nitrite-Dipstick Negative (Negative); Occult Blood-Urine 10 /ul (Negative); Protein-Dipstick 30 mg/dl (Negative); Urine Bilirubin Dipstick Negative (Negative); Urine Clarity Clear (Clear); Urine Urobilinogen Normal (Normal)
[2021-08-07 11:20] LABS: Squamous Epithelial Cells - UA 0-5 SEEN /hpf (5-10); White Blood Cells 0-5 SEEN /hpf (0-5)
--- NOTE | 2021-08-07 12:53 | PCM.HP.STD ---
HPI - General HPI Narrative SAMANTHA TROY, is a 86 F with complex past medical and past surgical histories who presents abdominal pain and obstipation following empirical treatment for diverticulitis last week. She states that she had an outpatient CT which showed possible evidence of diverticulitis and therefore she was placed on antibiotics. However, she did not tolerate the antibiotics well and discontinued them 4 days ago. When she stopped the antibiotics she also experienced a dramatic reduction in her passage of bowel movements or gas. She found herself only having bowel movements when she urinated. And the bowel movements are described as very tiny naty that are completely unformed. ER work-up is notable for biochemistries that show absence of leukocytosis but present left shift and normal lactic acid. CT imaging was read by radiology as colonic morphology consistent with prior colectomy but showing significant colon dilation and was concerning for possible closed-loop obstruction. Patient is 5 months status post transverse colectomy for colon carcinoma at [facility]. She reports that 9 out of 10 lymph nodes harvested during the operation were positive. She is currently on Keytruda immunotherapy given this anjum disease. She also mentions that an interval CAT scan that showed some growth of residual mesenteric nodes. She was recently on steroid therapy but is in a steroid taper so that she is now taking only 1/2 tablet of prednisone daily. Patient has baseline history of constipation and requires laxatives even in her postsurgical state to have bowel movements. She takes these laxatives daily but has not had one for the last couple of days. [facility] Medical History Anemia Atherosclerosis of coronary artery of [place] heart without angina pectoris Carotid artery stenosis Coronary artery disease COVID-19 virus detected (03/2020) Dyspnea on exertion Encounter for long-term current use of high risk medication Essential (primary) hypertension GERD (gastroesophageal reflux disease) History of TIA (transient ischemic attack) (08/2018) Hyperlipidemia Hypertension Hypothyroidism Idiopathic peripheral neuropathy Near syncope (10/28/19) Smoker Wears hearing aid in both ears Home Medications acetaminophen 325 mg PO Q6H PRN PRN 10/25/16 [History Last Taken 03/24/21 22:00] pantoprazole 40 mg PO DAILY 10/25/16 [History Last Taken 03/25/21 10:00] rosuvastatin 20 mg tablet 20 mg PO QHS 02/11/18 [History Last Taken 03/24/21 22:00] calcium carbonate-vitamin D3 600 mg (1,500 mg)-400 unit capsule 1 cap PO DAILY cap 01/20/19 [History Last Taken 03/25/21 10:00] doxycycline hyclate 20 mg tablet 20 mg PO BID PRN tab 01/20/19 [History Last Taken Unknown] losartan 50 mg tablet 50 mg PO DAILY 11/09/19 [History Last Taken 03/25/21 10:00] lorazepam 0.5 mg tablet 0.5 mg PO BID PRN tab 06/09/20 [History Last Taken Unknown] ascorbic acid (vitamin C) 500 mg tablet 500 mg PO DAILY 12/07/20 [History Last Taken 03/25/21 10:00] levothyroxine 75 mcg tablet 75 mcg PO MOTUWETHFRSA 12/07/20 [History Last Taken 03/25/21 10:00] Allergy/AdvReac Type Severity Reaction Status Date / Time hydrocodone bitartrate Allergy Nausea Verified 03/25/21 16:27 [From Vicodin] Sulfa (Sulfonamide Allergy Itching Verified 03/25/21 16:27 Antibiotics) Family History Sister CAD (coronary artery disease) Sister , Age 79 CVA (cerebral vascular accident) Cancer Surgical History H/O coronary artery bypass surgery (10/24/15) H/O foot surgery H/O foot surgery H/O tubal ligation History of appendectomy History of colonoscopy History of left heart catheterization (10/24/15) History of tubal ligation Hx of appendectomy Hx of cholecystectomy Hx of cholecystectomy Social History Smoking Status: Former smoker how long ago did patient quit smokin years ago alcohol intake: never substance use type: does not use caffeine: No what type of physical activity do you participate in: other details: silver sneakers seatbelt use: always do you feel safe at home: Yes Vital Signs Vital Signs Vital Signs: 08/07/21 08:37 08/07/21 11:10 Temperature 97.4 F L Temperature Source Temporal Pulse Rate 91 68 Respiratory Rate 18 18 Blood Pressure 155/78 H 138/76 H Blood Pressure Mean 103 96 Pulse Ox 96 96 Oxygen Delivery Method Room Air Room Air Weight Weight: 157 lb Body Mass Index (BMI) 26.9 Physical Exam Const alert and oriented x3 Constitutional Narrative: Overall in minimal distress aside from when she experiences a wave of colicky abdominal pain General Appearance: cooperative GI GI Narrative: Periumbilical laparotomy now well-healing. Mildly distended. Soft, tender to palpation in the left abdominal quadrants and relatively nontender on the right. Results Lab / Micro Data Result Diagrams: 08/07/21 09:43 08/07/21 09:43 Labs: Laboratory Results - last 24 hr 08/07/21 09:43: WBC 9.9, RBC 4.84, Hgb 11.8 L, Hct 37.9, MCV 78.3 L, MCH 24.4 L, MCHC 31.1 L, RDW Std Deviation 48.0 H, RDW Coeff of Tom 16.9 H, Plt Count 339, MPV 10.7, Immature Gran % (Auto) 0.400, Neut % (Auto) 79.1 H, Lymph % (Auto) 9.0 L, [place] % (Auto) 10.1 H, Eos % (Auto) 1.0, Baso % (Auto) 0.4, Absolute Neuts (auto) 7.9 H, Absolute Lymphs (auto) 0.89, Nucleated RBC % 0 08/07/21 09:43: Sodium 138, Potassium 3.5, Chloride 107, Carbon Dioxide 24.0, Anion Gap 7, BUN 11, Creatinine 0.90, Estim Creat Clear Calc 39.46, Est GFR (MDRD) Af Amer 76, Est GFR (MDRD) Non-Af 63, BUN/Creatinine Ratio 12.2, Glucose 116 H, Calcium 9.1, Total Bilirubin 0.30, AST 14 L, ALT 17, Alkaline Phosphatase 59, Troponin I High Sens 9, Total Protein 7.4, Albumin 3.3, Globulin 4.1, Albumin/Globulin Ratio 0.8 L, Lipase 114 08/07/21 09:43: Lactic Acid 1.0 08/07/21 10:35: Urine Color Yellow, Urine Clarity Clear, Urine pH 6.0, Ur Specific [place] 1.020, Urine Protein 30 H, Urine Glucose (UA) Normal, Urine Ketones Negative, Urine Occult Blood 10 H, Urine Nitrite Negative, Urine Bilirubin Negative, Urine Urobilinogen Normal, Ur Leukocyte Esterase 500 H, Urine RBC 0 SEEN, Urine WBC 0-5 SEEN, Ur Squamous Epith Cells 0-5 SEEN, Urine Bacteria 0 SEEN, Urine Mucus 0 SEEN Radiology Impression Abdomen/Pelvis CT 08/07/21 09:25 IMPRESSION: The patient is status post right hemicolectomy with anastomosis in the mid transverse colon. There is evidence of a markedly dilated portion of the transverse colon with fluid and fecal material. Fluid is seen throughout the left hemicolon down to the rectum. Questionable close loop obstruction. Please correlate with the operative note. Electronically Signed: Rodríguez Bauman MD at 11:00 EDT , Service support , Assessment & Plan Assessment/Plan (1) Constipation, acute: PLAN: Acute?on?chronic constipation in a patient status post transverse colectomy. On review of the imaging with both radiology and my partner, I do not see evidence of a closed-loop obstruction. Patient appears to have a widely patent colocolonic anastomosis between the right colon and distal transverse colon. There appears to be no dilation of the small bowel which is located to the right of the right colon likely secondary to opening of the white line of [place]. Furthermore, there appears to be air in the rectum and fluid?filled left colon. Unfortunately, there is incomplete opacification of the sigmoid colon area. To better characterize this portion of the colon, ensure no mechanical outflow obstruction, I would like to obtain a stat Gastrografin enema. If no obstruction is seen, we will plan to proceed with enemas and suppositories to mobilize right-sided stool burden. Appreciate hospitalist service to assist with patient's numerous comorbidities. Neuro: As needed acetaminophen, as needed Dilaudid Pulm/CV: Supplemental O2 as needed, home meds, telemetry FEN/GI: Daily labs, n.p.o., trend abdominal exam Heme/ID: Daily labs, no indication for antibiotic therapy at this point Endo: No current issues Proph: 5 000 units subcutaneous heparin every 8 hours given patient's concurrent diagnosis of colon carcinoma and probable period of immobility Dispo: Admit to inpatient
--- NOTE | 2021-08-07 13:02 | RAD_ITS ---
STUDY: GASTROGRAFIN ENEMA. REASON FOR EXAM: Female, 86 years old. Abdominal pain for 2 weeks. Prior colon surgery. Abnormal CT scan of the abdomen and pelvis. -- Gastrografin enema FLUOROSCOPY TIME (if supplied): ( 3 minutes and 19 seconds ) minutes/seconds. 20 images were obtained. TECHNIQUE: GASTROGRAFIN was introduced through the rectum. Imaging was obtained. COMPARISON: None. FINDINGS: GASTROGRAFIN was introduced through the rectum. There is retrograde obstruction at the level of the splenic flexure. The patient could not tolerate any more GASTROGRAFIN due to severe abdominal pain. A moderate amount of fecal material is seen within the left hemicolon. There appears to be an obstruction in the distal transverse colon. RAD/Therapeutic Enema IMPRESSION: Findings suggest the obstruction in the distal transverse colon at the level of splenic flexure. The patient could not tolerate anymore pressure at this time. Electronically Signed: Rodríguez Bauman MD at 14:22 EDT , Service support ,
--- NOTE | 2021-08-07 13:46 | PCM.CONS.GEN ---
Assessment & Plan Assessment/Plan (1) Bowel obstruction: QUALIFIERS: Intestinal obstruction type: unspecified Intestinal obstruction extent: unspecified extent Qualified Code(s): K56.609 - Unspecified intestinal obstruction, unspecified as to partial versus complete obstruction PLAN: The patient is an 86 y/o F w/ PMHx: Former tobacco use, CAD s/p CABG x 3, HTN, HLD, Hx TIA, Hypothyroidism, Chronic peripheral neuropathy, GERD, Hx 03/2020 COVID Viral syndrome, Carotid artery disease, Colon CA s/p prior R hemicolectomy with history of onset progressively worsening abdominal pain, distention without flatus nor any recent defecation, progressing x 3 weeks with recent history of starting hydrocortisone secondary to low cortisol levels at least 2 to 3 weeks prior to current presentation in addition to recent CT scan the week prior with evidence of diverticulitis started on 2 antibiotics at that time, Cipro and Flagyl with GI upset associated with worsening symptoms over the last 4 days and now diffuse abdominal discomfort primarily lower quadrants with severe intermittent abdominal cramping pain with bouts of nausea without emesis rated currently 6-7 out of 10 but has been reportedly 15 out of 10 intermittently. 1. Abdominal pain, nausea, distention with questionable obstruction w/ SBO: CT in the ED with some concern for closed-loop obstruction however per discussion with ED physician general surgery is less suspicious. Patient being admitted per general surgery, will defer any consideration of oral intake to their service, currently does not have an NG tube and given the distal nature suspect likely will not be placed but defer to general surgery, pain medications as well as any repeat plain films per their service discretion, will add IV famotidine given current status. 2. Recent history of diverticulitis: Patient treated with ciprofloxacin and Flagyl course, noted diarrhea during antibiotic therapy usage with transition to constipation over the last several days, no indication on CT of further infection but acute presentation as noted above. 3. CAD: Status post CABG x3, will temporarily hold patient aspirin last taken today prior, holding statin and losartan temporarily, not on beta-catalina therapy. 4. Hypertension: Holding patient oral therapies, as needed IV hydralazine interim 5. Hyperlipidemia: Holding patient statin therapy temporarily. 6. Carotid artery disease: Patient with history of stenosis, notes no history of any intervention, temporarily holding aspirin and hypertensive regimen as noted. 7. Hypothyroidism: We will temporarily hold Synthroid regimen, if prolonged may consider transition to one half IV dose. 8. Colon cancer: Status post 03/2020 partial colectomy in [facility], complicates presentation, on outpatient Keytruda, magnesium phosphorus elevated ordered per general surgery with supplementation as necessary. 9. Anxiety: We will add as needed low-dose Ativan given history of chronic use. 10. History of TIA: We will temporarily hold aspirin, statin, hypertensive regimen as noted. 11. Former remote tobacco use: Encourage continued tobacco cessation. 12. GERD: We will maintain the famotidine. 13. DVT prophylaxis: SCDs, chemoprophylaxis per general surgery discretion. 14. CODE status: Patient HCPOA is patient son who is present and living will is currently in place. Discussed CODE status at length including difference between FULL code, DNR-CCA and DNR-CC status. Following discussions about the differences in these status, requested DNR-CCA, no intubation status. Son did ask several questions regarding this and patient is very adamant that she wants to be DNR CCA no intubation to him. Advanced Care Planning Face to Face Time: 16 minutes. HPI Consult Data Date of Consult: 08/07/21 Attending Care Provider: Dr. Meeks, General Surgery HPI Narrative Reason for Consultation: Medical management HPI Narrative: The patient is an 86 y/o F w/ PMHx: Former tobacco use, CAD s/p CABG x 3, HTN, HLD, Hx TIA, Hypothyroidism, Chronic peripheral neuropathy, GERD, Hx 03/2020 COVID Viral syndrome, Carotid artery disease, Colon CA s/p prior R hemicolectomy with history of onset progressively worsening abdominal pain, distention without flatus nor any recent defacation, progressing x 3 weeks with recent history of starting hydrocortisone secondary to low cortisol levels at least 2 to 3 weeks prior to current presentation in addition to recent CT scan the week prior with evidence of diverticulitis started on 2 antibiotics at that time, Cipro and Flagyl with GI upset associated with worsening symptoms over the last 4 days and now diffuse abdominal discomfort primarily lower quadrants with severe intermittent abdominal cramping pain with bouts of nausea without emesis rated currently 6-7 out of 10 but has been reportedly 15 out of 10 intermittently. She notes that it was most severe earlier in the day when she was attempting to shower. She states that she did have a small bowel movement on day of presentation which was brown and granular, no evidence of any bright blood or black appearing granules. She states that prior to this when she was on an antibiotic she did have significant loose stools and this stopped about 3 days prior to current presentation and she began to become more constipated. Patient had her recent colon cancer intervention with partial colectomy as noted 03/[address] Miramontes at [facility]. Per report she is not on any chemotherapy but does take Keytruda and is under no radiation treatments. Work-up in the ED included T 97.4, heart rate initially 91 with repeat 68, BP initially 155/78 with most recent repeat 130/76, respiratory rate 18, 96% on room air, CBC with WBC 9.9, hemoglobin 11.8, platelets 339 with left shift, CMP with glucose 116 otherwise not marked appearing, lipase 114, lactic acid 1.0, urinalysis with evidence of dehydration with specific [place] elevation 1.020, protein 30, occult blood 10, negative nitrite, leukocyte esterase 500 however urine WBC 0-5 and no urine bacteria, CT abdomen pelvis with contrast with evidence status post right hemicolectomy with end stenosis in the mid transverse colon with evidence of markedly dilated portion of the transverse colon with fluid and fecal material with fluid seen throughout the left hemicolon down to the rectum with questionable closed-loop obstruction, EKG with SR without acute evidence of ischemia. Patient she had had surgery done by Dr. Miramontes at [facility]. [facility] Medical History Anemia Atherosclerosis of coronary artery of [place] heart without angina pectoris Carotid artery stenosis Coronary artery disease COVID-19 virus detected (03/2020) Dyspnea on exertion Encounter for long-term current use of high risk medication Essential (primary) hypertension GERD (gastroesophageal reflux disease) History of TIA (transient ischemic attack) (08/2018) Hyperlipidemia Hypertension Hypothyroidism Idiopathic peripheral neuropathy Near syncope (10/28/19) Smoker Wears hearing aid in both ears Home Medications pantoprazole 40 mg PO DAILY 10/25/16 [History Last Taken 08/07/21] rosuvastatin 20 mg tablet 20 mg PO QHS 02/11/18 [History Last Taken 08/06/21] doxycycline hyclate 20 mg tablet 20 mg PO BID PRN tab 01/20/19 [History Last Taken Unknown] losartan 50 mg tablet 50 mg PO DAILY 11/09/19 [History Last Taken 08/06/21] lorazepam 0.5 mg tablet 0.5 mg PO BID PRN tab 06/09/20 [History Last Taken Unknown] ascorbic acid (vitamin C) 500 mg tablet 500 mg PO DAILY 12/07/20 [History Last Taken 03/25/21 10:00] levothyroxine 75 mcg tablet 75 mcg PO MOTUWETHFRSA 12/07/20 [History Last Taken 08/07/21] Keytruda 1 dose IV BOLUS CONT 08/07/21 [History Last Taken 07/28/21] acetaminophen 500 mg PO DAILY PRN 08/07/21 [History Last Taken 08/06/21] aspirin [Aspirin Low Dose] 81 mg PO DAILY 08/07/21 [History Last Taken 08/06/21] diphenhydramine-acetaminophen [Acetaminophen PM] 1 tab PO QHS PRN 08/07/21 [History Last Taken 08/06/21] docusate sodium 300 mg PO DAILY 08/07/21 [History Last Taken 3 Days Ago ~08/04/21] hydrocortisone 5 mg PO DAILY 08/07/21 [History Last Taken 08/07/21] Allergy/AdvReac Type Severity Reaction Status Date / Time hydrocodone bitartrate Allergy Nausea Verified 03/25/21 16:27 [From Vicodin] Sulfa (Sulfonamide Allergy Itching Verified 03/25/21 16:27 Antibiotics) Family History (Updated 08/07/21 @ 14:[address] Greta Jonas MD) Sister CAD (coronary artery disease) Sister , Age 79 CVA (cerebral vascular accident) Cancer Father Pulmonary embolism Family History other other (Denies any marked maternal family history including HD, DM, CA. Passed age 101.) Surgical History H/O coronary artery bypass surgery (10/24/15) H/O foot surgery H/O foot surgery H/O tubal ligation History of appendectomy History of colonoscopy History of left heart catheterization (10/24/15) History of tubal ligation Hx of appendectomy Hx of cholecystectomy Hx of cholecystectomy Social History (Updated 08/07/21 @ 14:[address] Greta Jonas MD) household members: other details: Patient's grandson lives with her. Smoking Status: Former smoker how long ago did patient quit smoking: Quit 56 years prior with < 1 ppd since [age] years old. alcohol intake: never substance use type: does not use caffeine: No what type of physical activity do you participate in: other details: silver sneakers seatbelt use: always do you feel safe at home: Yes ROS ROS Narrative Admission Review of Systems: CONSTITUTIONAL: No weight loss, fever, chills, + weakness or fatigue. HEENT: Eyes: No visual loss, blurred vision, double vision or yellow sclerae. Ears, Nose, Throat: No hearing loss, sneezing, congestion, runny nose or sore throat. SKIN: No rash or itching, lesions, wounds. CARDIOVASCULAR: No chest pain, chest pressure or chest discomfort, palpitations, edema, orthopnea, syncopal events. RESPIRATORY: No shortness of breath, cough or sputum, wheezing, hemoptysis. GASTROINTESTINAL: + anorexia, nausea without vomiting, diarrhea-->constipation, abdominal distention and abdominal pain, No specific melena, BRBPR. GENITOURINARY: No dysuria, frequency, urgency or retention. NEUROLOGICAL: No headache, dizziness, syncope, paralysis, ataxia, numbness or tingling in the extremities, focal weakness, change in bowel or bladder control, seizure. MUSCULOSKELETAL: + muscle, back pain, joint pain or stiffness. HEMATOLOGIC: + anemia, bleeding or bruising. LYMPHATICS: No enlarged nodes. No history of splenectomy. PSYCHIATRIC: No history of depression or anxiety. ENDOCRINOLOGIC: No reports of sweating, cold or heat intolerance. No polyuria or polydipsia. ALLERGIES: No history of asthma, hives, eczema or rhinitis. Physical Exam Narrative Physical Examination: General: Awake, alert, oriented x 3 and cooperative, seated upright in the ED bed, uncomfortable appearing, fatigued. Skin: Normal color, normal turgor, no icterus, no cyanosis. HEENT: AT/NC, EOMI, PERRLA, dry MM, no carotid bruits or JVD noted. Lungs: Diminished, greater bases, moderate effort, no rales, ronchi or wheezing. Heart: Currently, regular rate and rhythm; no gallop, rub audible. Abdomen: Soft, diffusely distended, tender to palpation with any level of pressure even minimal, diffuse absent bowel sounds, unable to discern HSM secondary to pain and distention. Extremities: No cyanosis, clubbing, or edema. Neurological: Patient awake, alert, oriented as noted, cognitive function intact; pupils equally reactive to light and accommodation, cranial nerves II-XII grossly normal, moving all 4 extremities, no focal deficits, strength moderately to severely global decrease secondary to acute presentation. Psychiatric: Affect appears fatigued, uncomfortable, no acute evidence of depressive or anxiety feelings. Lab / Micro Data Result Diagrams: 08/07/21 09:43 08/07/21 09:43 Labs: Laboratory Results - last 24 hr 08/07/21 09:43: WBC 9.9, RBC 4.84, Hgb 11.8 L, Hct 37.9, MCV 78.3 L, MCH 24.4 L, MCHC 31.1 L, RDW Std Deviation 48.0 H, RDW Coeff of Tom 16.9 H, Plt Count 339, MPV 10.7, Immature Gran % (Auto) 0.400, Neut % (Auto) 79.1 H, Lymph % (Auto) 9.0 L, [place] % (Auto) 10.1 H, Eos % (Auto) 1.0, Baso % (Auto) 0.4, Absolute Neuts (auto) 7.9 H, Absolute Lymphs (auto) 0.89, Nucleated RBC % 0 08/07/21 09:43: Sodium 138, Potassium 3.5, Chloride 107, Carbon Dioxide 24.0, Anion Gap 7, BUN 11, Creatinine 0.90, Estim Creat Clear Calc 39.46, Est GFR (MDRD) Af Amer 76, Est GFR (MDRD) Non-Af 63, BUN/Creatinine Ratio 12.2, Glucose 116 H, Calcium 9.1, Total Bilirubin 0.30, AST 14 L, ALT 17, Alkaline Phosphatase 59, Troponin I High Sens 9, Total Protein 7.4, Albumin 3.3, Globulin 4.1, Albumin/Globulin Ratio 0.8 L, Lipase 114 08/07/21 09:43: Lactic Acid 1.0 08/07/21 10:35: Urine Color Yellow, Urine Clarity Clear, Urine pH 6.0, Ur Specific [place] 1.020, Urine Protein 30 H, Urine Glucose (UA) Normal, Urine Ketones Negative, Urine Occult Blood 10 H, Urine Nitrite Negative, Urine Bilirubin Negative, Urine Urobilinogen Normal, Ur Leukocyte Esterase 500 H, Urine RBC 0 SEEN, Urine WBC 0-5 SEEN, Ur Squamous Epith Cells 0-5 SEEN, Urine Bacteria 0 SEEN, Urine Mucus 0 SEEN Radiology Impression Abdomen/Pelvis CT 08/07/21 09:25 IMPRESSION: The patient is status post right hemicolectomy with anastomosis in the mid transverse colon. There is evidence of a markedly dilated portion of the transverse colon with fluid and fecal material. Fluid is seen throughout the left hemicolon down to the rectum. Questionable close loop obstruction. Please correlate with the operative note. Electronically Signed: Rodríguez Bauman MD at 11:00 EDT , Service support , Charges/Coding Visit Charges Office Visits / Consults: 93186 IP Consult L4 Procedures Hospitalists Procedures: 80672 Advncd Care Plan 30 Min
[2021-08-07] MEDS: HYDROmorphone 0.5 MG/0.5 ML SYRINGE IV (15:10)
[2021-08-07] MEDS: Lactated Ringers 1,000 ML 100 ML IV (16:13)
[2021-08-07] MEDS: Famotidine 200 MG/20 ML MDV 20 MG in 0.9% Normal Saline (Pres. free 8 ML 300 MG IV ×2 (16:45→22:32)
[2021-08-07] MEDS: Heparin Injection (Vial) 5,000 UNIT/ML VIAL 5000 UNIT SC ×2 (16:49→22:37)
[2021-08-07] MEDS: Bisacodyl 10 MG Suppository RC (17:49)
[2021-08-07] MEDS: 0.9% Saline Lock 10 ML Syringe IV (19:49)
[2021-08-07] MEDS: Ondansetron 4 MG/2 ML Vial IV (19:49)
[2021-08-08] VITALS (9 sets, daily range): BP systolic 140–151; BP diastolic 48–89; PULSE 63–87; RESP 16–18; TEMP 36.7–37.1; O2SAT 93–97
--- NOTE | 2021-08-08 01:47 | PCS.PANDOC ---
PANDEMIC DOCUMENTATION INITIATED: Date: 08/07/2021 Time: 9965
[2021-08-08] MEDS: Lactated Ringers 1,000 ML 100 ML IV ×2 (02:30→14:30)
[2021-08-08] MEDS: Acetaminophen 325 MG Tablet 650 MG PO ×2 (02:41→18:36)
--- NOTE | 2021-08-08 03:00 | NURSING ---
AMBULATED IN [facility] W/PT.
[2021-08-08] MEDS: Heparin Injection (Vial) 5,000 UNIT/ML VIAL 5000 UNIT SC ×3 (05:21→22:36)
[2021-08-08 07:24] LABS: Absolute Lymphocyte Count 1.32 X10^3/uL (0.83-4.51); Absolute Neutrophil Count 4.4 X10^3/uL (2.0-7.7); Basophil# 0.03 X10^3/uL; Basophil% 0.4 % (0-1); Eosinophils% 1.5 % (0-5); Hematocrit 31.6 % (37-47); Hemoglobin 10.1 g/dL (12.0-15.0); Lymphocyte # 1.32 X10^3/ul (0.83-4.51); Lymphocyte % 19.6 % (19-41); Mean Corpuscular Hgb 25.2 pg (27.0-32.0); Mean Corpuscular Volume 78.8 fL (81-99); Monocyte# 0.81 X10^3/uL; NRBC Flagged by Analyzer 0 % (0-5); Neutrophil # 4.43 X10^3/uL (2.7-7.7); Neutrophil % 65.9 % (47-70); Platelet Count 293 K/mm3 (150-450); RBC Distribution Width SD 48.8 fl (35.1-43.9); Red Blood Count 4.01 M/mm3 (4.2-5.4); White Blood Count 6.7 K/mm3 (4.4-11.0)
--- NOTE | 2021-08-08 07:52 | PCM.PN.SRG ---
Subjective Subjective Patient seen and examined during AM rounds. She is sleeping on arrival to the room. She states that she is feeling much better following 3 bowel movements yesterday. One was larger in size but very loose in consistency. Objective Data Objective Data Vital Signs: Vital Signs Temp Pulse Resp BP Pulse Ox 98.4 F 71 16 151/48 H 96 08/08/21 02:48 08/08/21 03:00 08/08/21 02:48 08/08/21 02:48 08/08/21 02:48 Oxygen Delivery Method Room Air Weight: 157 lb 1 oz Body Mass Index (BMI) 26.9 Intake & Output: Intake and Output for Last 24 Hours 08/06/21 08/07/21 08/08/21 23:59 23:59 23:59 Intake Total 520 / 520 1030 / 1030 Balance 520 / 520 1030 / 1030 Lab / Micro Data Result Diagrams: 08/08/21 06:30 08/07/21 09:43 Labs: Laboratory Results - last 24 hr 08/07/21 09:43: WBC 9.9, RBC 4.84, Hgb 11.8 L, Hct 37.9, MCV 78.3 L, MCH 24.4 L, MCHC 31.1 L, RDW Std Deviation 48.0 H, RDW Coeff of Tom 16.9 H, Plt Count 339, MPV 10.7, Immature Gran % (Auto) 0.400, Neut % (Auto) 79.1 H, Lymph % (Auto) 9.0 L, [place] % (Auto) 10.1 H, Eos % (Auto) 1.0, Baso % (Auto) 0.4, Absolute Neuts (auto) 7.9 H, Absolute Lymphs (auto) 0.89, Nucleated RBC % 0 08/07/21 09:43: Sodium 138, Potassium 3.5, Chloride 107, Carbon Dioxide 24.0, Anion Gap 7, BUN 11, Creatinine 0.90, Estim Creat Clear Calc 39.46, Est GFR (MDRD) Af Amer 76, Est GFR (MDRD) Non-Af 63, BUN/Creatinine Ratio 12.2, Glucose 116 H, Calcium 9.1, Total Bilirubin 0.30, AST 14 L, ALT 17, Alkaline Phosphatase 59, Troponin I High Sens 9, Total Protein 7.4, Albumin 3.3, Globulin 4.1, Albumin/Globulin Ratio 0.8 L, Lipase 114 08/07/21 09:43: Lactic Acid 1.0 08/07/21 10:35: Urine Color Yellow, Urine Clarity Clear, Urine pH 6.0, Ur Specific [place] 1.020, Urine Protein 30 H, Urine Glucose (UA) Normal, Urine Ketones Negative, Urine Occult Blood 10 H, Urine Nitrite Negative, Urine Bilirubin Negative, Urine Urobilinogen Normal, Ur Leukocyte Esterase 500 H, Urine RBC 0 SEEN, Urine WBC 0-5 SEEN, Ur Squamous Epith Cells 0-5 SEEN, Urine Bacteria 0 SEEN, Urine Mucus 0 SEEN 08/08/21 06:30: WBC 6.7, RBC 4.01 L, Hgb 10.1 L, Hct 31.6 L, MCV 78.8 L, MCH 25.2 L, MCHC 32.0, RDW Std Deviation 48.8 H, RDW Coeff of Tom 17.0 H, Plt Count 293, MPV 11.0, Immature Gran % (Auto) 0.600, Neut % (Auto) 65.9, Lymph % (Auto) 19.6, [place] % (Auto) 12.0 H, Eos % (Auto) 1.5, Baso % (Auto) 0.4, Absolute Neuts (auto) 4.4, Absolute Lymphs (auto) 1.32, Nucleated RBC % 0 Radiography Diagnostic Testing: Radiology Impression Abdomen/Pelvis CT 08/07/21 09:25 IMPRESSION: The patient is status post right hemicolectomy with anastomosis in the mid transverse colon. There is evidence of a markedly dilated portion of the transverse colon with fluid and fecal material. Fluid is seen throughout the left hemicolon down to the rectum. Questionable close loop obstruction. Please correlate with the operative note. Electronically Signed: Rodríguez Bauman MD at 11:00 EDT , Service support , Therapeutic Barium Enema Intussusception 08/07/21 13:02 IMPRESSION: Findings suggest the obstruction in the distal transverse colon at the level of splenic flexure. The patient could not tolerate anymore pressure at this time. Electronically Signed: Rodríguez Bauman MD at 14:22 EDT , Service support , Physical Exam Const no apparent distress Resp normal respiratory effort GI GI Narrative: Soft, distended, much less tender to palpation Assessment & Plan Assessment/Plan (1) Constipation, acute: PLAN: Acute?on?chronic constipation in a patient status post transverse colectomy for colon carcinoma. Patient had Gastrografin enema yesterday which showed opacification of the sigmoid and descending colon without evidence of diverticulitis and there was diffusion into the remnant/distal transverse colon. Patient responded well to Dulcolax suppository yesterday with 3 subsequent bowel movements and significant symptomatic improvement. Would like to continue a bowel regimen today with 2 enemas. Neuro: As needed acetaminophen, as needed Dilaudid (like to limit narcotics to avoid altering bowel motility) Pulm/CV: Supplemental O2 as needed, home meds, telemetry FEN/GI: Daily labs, n.p.o., trend abdominal exam, tapwater enemas x2 Heme/ID: Daily labs, no indication for antibiotic therapy at this point Endo: No current issues Proph: 5 000 units subcutaneous heparin every 8 hours given patient's concurrent diagnosis of colon carcinoma and probable period of immobility Dispo: Admit to inpatient Charges/Coding Visit Charges Inpatient E&M: 40799 Subs Hosp L2
[2021-08-08 07:57] LABS: Anion Gap 7 (5-15); BUN 12 mg/dL (7-18); Calcium,Total 8.8 mg/dL (8.5-10.1); Chloride 105 mmol/L (98-107); EST Glomerular Filtration Rate 84 mL/min (>60); Est Glom Filt Rate - Afr Amer 101 mL/min (>60); Estimated Creatinine Clearance 35.52 ml/min; Glucose 84 mg/dL (74-106); Phosphorus 2.7 mg/dL (2.5-4.9); Potassium 3.7 mmol/L (3.5-5.1); Sodium Level 137 mmol/L (136-145)
--- NOTE | 2021-08-08 10:35 | NURSING ---
flecks of stool noted in toilet.
--- NOTE | 2021-08-08 10:55 | CASEMGMT ---
BAIRON JUAREZ Assessment: Face to Face with pt for initial transition planning/care coordination assessment. BAIRON JUAREZ introduced self and role at [facility], pt voices understanding and consents to assessment. Pt is A/O x4 and answers all questions appropriately at this time. Pt sitting up in chair in no distress. Care providers, pharmacy, and demographics verified/updated. Admitting Dx: constipation PCP:Randolph Specialists:edgard Glass Preferred Pharmacy: [facility] Retail while inpatient Insurance: [employer] [facility] Prescription Benefit: yes LW/HPOA: Pt has a LW/DPOA on file at [facility]. Her DPOA was her who is . She states she will ask her son to bring in her updated DPOA. She states her sons are her DPOA. LNOK: Silver Bernal, Naveed Bernal; sons Living Arrangements: Pt lives with her 22 year old grandson in a single story house with 2 steps to enter with a rail. Pt reports being I in ADL's and denies concerns at home. Transportation: Pt drives self and denies concerns with transportation. DME/HHC/SNF: Pt has a cane but does not use. Pt has had HHC in the past but is unsure of the agency name. She denies having any SNF stays. Pt states she has joined a chair exercise class that she has attended. She denies the need for any therapy at home. She states [facility] [place] [facility]. Pt states no concerns with going home at time of dc. Pt states no further concerns/needs. CM to follow. Advised pt to ask CM if any further question/concerns/needs arise, voices understanding. Pt Goal: Home Plan: Home
[2021-08-08] MEDS: Famotidine 200 MG/20 ML MDV 20 MG in 0.9% Normal Saline (Pres. free 8 ML 300 MG IV ×2 (11:41→22:35)
[2021-08-08] MEDS: 0.9% Saline Lock 10 ML Syringe IV ×4 (11:45→22:43)
--- NOTE | 2021-08-08 14:08 | PN.HOSP_ITS ---
Subjective Subjective Patient seen and examined. She was admitted with a complaint of abdominal pain and had apparently had an outpatient CT which showed possible evidence of diverticulitis. She was placed on antibiotics but did not tolerated and so stopped taking it. Subsequently started having reduction in bowel movement or passage of gas. CT done on this admission showed significant: The dictation concerning for possible closed-loop obstruction. General surgery admitted patient she has been managed for acute on chronic constipation in a patient s/p transverse colectomy. Patient seen and examined. Still with complaint of abdominal pain today. She was passing gas. She is due to have an enema today. General surgery to help with bowel movements. Review of systems otherwise negative. Objective Data Objective Data Vital Signs: Vital Signs Temp Pulse Resp BP Pulse Ox 98.0 F 86 18 140/72 H 94 08/08/21 09:16 08/08/21 10:03 08/08/21 09:16 08/08/21 09:16 08/08/21 09:16 Oxygen Delivery Method Room Air Weight: 157 lb 1 oz Body Mass Index (BMI) 26.9 Intake & Output: Intake and Output for Last 24 Hours 08/06/21 08/07/21 08/08/21 23:59 23:59 23:59 Intake Total 520 / 520 1765 / 1765 Balance 520 / 520 1765 / 1765 Lab / Micro Data Result Diagrams: 08/08/21 06:30 08/08/21 06:30 Labs: Laboratory Results - last 24 hr 08/08/21 06:30: WBC 6.7, RBC 4.01 L, Hgb 10.1 L, Hct 31.6 L, MCV 78.8 L, MCH 25.2 L, MCHC 32.0, RDW Std Deviation 48.8 H, RDW Coeff of Tom 17.0 H, Plt Count 293, MPV 11.0, Immature Gran % (Auto) 0.600, Neut % (Auto) 65.9, Lymph % (Auto) 19.6, [place] % (Auto) 12.0 H, Eos % (Auto) 1.5, Baso % (Auto) 0.4, Absolute Neuts (auto) 4.4, Absolute Lymphs (auto) 1.32, Nucleated RBC % 0 08/08/21 06:30: Sodium 137, Potassium 3.7, Chloride 105, Carbon Dioxide 25.0, Anion Gap 7, BUN 12, Creatinine 0.70, Estim Creat Clear Calc 35.52, Est GFR (MDRD) Af Amer 101, Est GFR (MDRD) Non-Af 84, BUN/Creatinine Ratio 17.0, Glucose 84, Calcium 8.8, Phosphorus 2.7, Magnesium 2.0 Radiography Diagnostic Testing: Radiology Impression Therapeutic Barium Enema Intussusception 08/07/21 13:02 IMPRESSION: Findings suggest the obstruction in the distal transverse colon at the level of splenic flexure. The patient could not tolerate anymore pressure at this time. Electronically Signed: Rodríguez Bauman MD at 14:22 EDT , Service support , Physical Exam Const alert, oriented x3 and no apparent distress Exam Limitations: no limitations HEENT head/scalp atraumatic, moist oral mucous membranes and oropharynx normal Head and Scalp: normocephalic Eyes PERRL, EOMs intact bilaterally and conjunctivae normal Neck no lymphadenopathy Resp normal respiratory effort, no retractions, no use of accessory muscles and clear to auscultation bilaterally Cardio regular rate, regular rhythm, S1 normal heart sound, S2 normal heart sound and no murmurs GI GI Narrative: abdomen full, minimal tenderness, no organomegaly. Extremity normal to inspection, full ROM and no clubbing, cyanosis or edema Peripheral Pulses: Yes pulses 2+ throughout Skin no rashes or lesions noted Neuro oriented x3, CN's II-XII intact bilaterally and moves all extremities Sensorium / Orientation: awake and alert Psych affect normal Assessment & Plan Assessment/Plan (1) Abdominal pain: (2) Constipation, acute: PLAN: #Acute on chronic constipation * Per general surgery, images reviewed and no evidence of closed-loop obstruction * Patient to have an enema today per general surgery to help relieve constipa tion. * Management as per general surgery. * being hydrated with IVF * #CAD s/p CABG x3, aspirin on hold. On statin and losartan which also on hold. #Hypertension: On IV hydralazine as needed. Home medication held on account of patient being n.p.o. #Hyperlipidemia: On statin. #History of carotid disease: On aspirin. #Hypothyroidism: On Synthroid which is currently on hold. #History of colon cancer * S/p partial colectomy in March 2020 at [facility]. * On Keytruda on outpatient basis. * #History of TIA: On aspirin and statin as well as BP meds which are on hold as patient is n.p.o. #Anxiety: On Ativan as needed #GERD: On famotidine DVT prophylaxis: heparin Charges/Coding Visit Charges Inpatient E&M: 78858 Subs Hosp L2
[2021-08-08] MEDS: Bisacodyl 10 MG Suppository RC (16:44)
--- NOTE | 2021-08-08 17:14 | CASEMGMT ---
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 SW reviewed chart, HCPOA and LW are on file but current HCPOA states pt's is HCPOA who is now . RN ANN spoke with pt and updated her of this. Pt aware old documents are on file at [facility]. Pt states she has new documents that can be brought in. Kayla Montemayor UNIX SYSTEM ADMINISTRATOR, LABEL STAMPER
[2021-08-09] VITALS (27 sets, daily range): BP systolic 93–171; BP diastolic 49–89; PULSE 60–101; RESP 16–18; TEMP 35.9–37.1; O2SAT 92–98; BMI 26.9; BMI 27.0
--- NOTE | 2021-08-09 | IMM_PTH ---
PATIENT: SAMANTHA TROY LOC: MS3 U#:[id number] AGE/SX: 86/F ROOM: NJ321 RE08/07/[address]: Dr. Anna Casillas MD : 1935 BED: 1 DIS: 08/26/2021 SPEC #: [id number] RECD: 08/14/21 14:53 STATUS: YUE REQ #: [id number] [place]: 08/09/21 00:[address]: Nehemias Pan DEPT: IMMUNOHISTOCHEMISTRY RECD BY: Jamilah Graham ENTERED: 08/14/21 14:55 SP TYPE: IMMUNO OTHR DR: MD Dr. Lizzie Pedro MD Dr. Lapman Lun, MD Dr. Mir Ali, MD Dr. Michael Bortz, MD Dr. Paul Masci, DO Dr. Victor Velasquez, MD Tissues: Sigmoid colon biopsy Procedures: RCC (add) NAPSIN A (add) CK20 (add) CK5-6 (add) CK7 (add) CK8 (add) MEJIA-2 (add) HEP PAR (add) VA (add) TTF1 (add) Pankeratin (add) P40 (add) CDX2 (add) ER (initial) PHYSICIAN & [place] [id number] SPECIMEN INFORMATION: Tissue Source: Sigmoid colon Clinical Info: Abdominal discomfort Specimen Number: [id number] #8 CPT code: 16230, 60807 x13 METHODOLOGY: Deparaffinized sections of prefer/formalin-fixed tissue or PAP/DQ stained slides are incubated with monoclonal/polyclonal antibodies/oligonucleotide probes. Localization is made via biotin free immunoperoxidase method. Appropriate controls are performed and reacted as expected. Results on target cell population are indicated in the following table: RESULTS: ANTIBODY / CLONE RESULT Block 8 ER (6F11) negative VA (1E2) negative AE1-3 (AE1/AE3/PCK26) positive CK7 (OV-TL12/30) positive CK8 (07flliI98) positive CK20 (KS20.8) negative TTF-1 (8G7G3/1) negative Napsin A (Rabbit Polyclonal) positive HepPar (OCh1E5) negative RCC (PN-15) negative CK5-6 (D5 & 1684) negative P40 (BC28) negative CDX2 (QKQ0452U) positive MEJIA-2 (SP21) positive These tests were developed and their performance characteristics determined by [facility]. They may not have been cleared or approved by the U.S. Food and Drug Administration. The FDA has determined that such clearance or approval is not necessary. The above immunohistochemical/dualISH markers are ordered and reviewed by the Pathologist. 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 SJ:phan 08/15/2021 IHC profile is compatible with clinical impression of metastatic colonic primary. Case has been reviewed in consultation with Dr. Wallace who concurs with the above diagnosis. IDC:AM
[2021-08-09] MEDS: Lactated Ringers 1,000 ML 100 ML IV ×4 (01:16→21:00)
[2021-08-09] MEDS: Acetaminophen 325 MG Tablet 650 MG PO (04:25)
--- NOTE | 2021-08-09 06:00 | RAD_ITS ---
STUDY: X-RAY - ABDOMEN/PELVIS REASON FOR EXAM: Female, 86 years old. Constipation TECHNIQUE: Single AP view of the abdomen / pelvis. COMPARISON: None. FINDINGS: Stable elevation of the right hemidiaphragm. Residual contrast is seen in the left hemicolon from a recent barium enema. Contrast is seen within a dilated transverse colon with an air-fluid level. This measures 11.6 sinus. There is no demonstrated free abdominal air. The visualized liver, spleen and kidneys are grossly normal in size and morphology. Normal soft tissue structures. There are diffuse degenerative changes of the visualized lumbar spine. RAD/Abd Inc Decub and/or Erect IMPRESSION: Air-fluid level with contrast is seen within a distended large bowel loops most likely representing the transverse colon. Electronically Signed: Rodríguez Bauman MD at 8:37 EDT , Service support ,
[2021-08-09] MEDS: Heparin Injection (Vial) 5,000 UNIT/ML VIAL 5000 UNIT SC ×2 (06:07→22:42)
[2021-08-09 07:40] LABS: Absolute Neutrophil Count 4.1 X10^3/uL (2.0-7.7); Basophil# 0.03 X10^3/uL; Basophil% 0.5 % (0-1); Eosinophils% 3.4 % (0-5); Hematocrit 30.8 % (37-47); Hemoglobin 9.8 g/dL (12.0-15.0); Lymphocyte % 15.4 % (19-41); Mean Corp Hgb Conc 31.8 g/dL (32-36); Mean Corpuscular Hgb 24.8 pg (27.0-32.0); Mean Platelet Vol. 10.7 fl (6.2-12.0); Monocyte# 0.62 X10^3/uL; Monocyte% 10.6 % (0-10); NRBC Flagged by Analyzer 0 % (0-5); Neutrophil # 4.05 X10^3/uL (2.7-7.7); Neutrophil % 69.6 % (47-70); Platelet Count 298 K/mm3 (150-450); RBC Distribution Width CV 16.8 % (11.6-14.6); RBC Distribution Width SD 47.7 fl (35.1-43.9); Red Blood Count 3.95 M/mm3 (4.2-5.4); White Blood Count 5.8 K/mm3 (4.4-11.0)
--- NOTE | 2021-08-09 07:54 | PCM.PN.SRG ---
Subjective Subjective Patient reports no flatus. She had 2 enemas yesterday with no bowel movement. No nausea or vomiting but she is distended and complains of abdominal pain. Objective Data Objective Data Vital Signs: Vital Signs Temp Pulse Resp BP Pulse Ox 97.5 F L 69 18 145/77 H 98 08/09/21 04:28 08/09/21 06:00 08/09/21 04:28 08/09/21 04:28 08/09/21 04:28 Oxygen Delivery Method Room Air Weight: 157 lb 1 oz Body Mass Index (BMI) 26.9 Intake & Output: Intake and Output for Last 24 Hours 08/07/21 08/08/21 08/09/21 23:59 23:59 23:59 Intake Total 520 / 520 2049 1000 / 1000 Balance 520 / 520 2049 1000 / 1000 Lab / Micro Data Result Diagrams: 08/09/21 06:50 08/08/21 06:30 Labs: Laboratory Results - last 24 hr 08/08/21 06:30: Sodium 137, Potassium 3.7, Chloride 105, Carbon Dioxide 25.0, Anion Gap 7, BUN 12, Creatinine 0.70, Estim Creat Clear Calc 35.52, Est GFR (MDRD) Af Amer 101, Est GFR (MDRD) Non-Af 84, BUN/Creatinine Ratio 17.0, Glucose 84, Calcium 8.8, Phosphorus 2.7, Magnesium 2.0 08/09/21 06:50: WBC 5.8, RBC 3.95 L, Hgb 9.8 L, Hct 30.8 L, MCV 78.0 L, MCH 24.8 L, MCHC 31.8 L, RDW Std Deviation 47.7 H, RDW Coeff of Tom 16.8 H, Plt Count 298, MPV 10.7, Immature Gran % (Auto) 0.500, Neut % (Auto) 69.6, Lymph % (Auto) 15.4 L, [place] % (Auto) 10.6 H, Eos % (Auto) 3.4, Baso % (Auto) 0.5, Absolute Neuts (auto) 4.1, Absolute Lymphs (auto) 0.90, Nucleated RBC % 0 Physical Exam Const no apparent distress Resp normal respiratory effort Cardio regular rate GI soft to palpation Inspection: abdominal distention Palpation: tender Assessment & Plan Assessment/Plan (1) Abdominal pain: QUALIFIERS: Abdominal location: generalized Qualified Code(s): R10.84 - Generalized abdominal pain PLAN: The patient had a contrast enema yesterday and today on KUB it appears that the entire colon has contrast within it. It is still very distended diffusely. The patient is not having any flatus or bowel movements. She has no nausea or vomiting and she has some diffuse abdominal tenderness with distention. I recommend continue ambulation and keep her n.p.o. with IV fluids until she starts passing flatus. Nehemias Pan MD Pager: [facility] [address] [place] [address], [address] [place] [address] Office:
[2021-08-09 08:07] LABS: Anion Gap 7 (5-15); BUN 9 mg/dL (7-18); BUN/Creat Ratio 12.6 RATIO (10-20); Calcium,Total 8.8 mg/dL (8.5-10.1); Chloride 104 mmol/L (98-107); Creatinine, Serum 0.72 mg/dL (0.55-1.02); EST Glomerular Filtration Rate 83 mL/min (>60); Est Glom Filt Rate - Afr Amer 100 mL/min (>60); Estimated Creatinine Clearance 35.52 ml/min; Glucose 79 mg/dL (74-106); Magnesium 1.9 mg/dL (1.6-2.6); Phosphorus 2.3 mg/dL (2.5-4.9); Potassium 3.7 mmol/L (3.5-5.1); Sodium Level 137 mmol/L (136-145)
[2021-08-09] MEDS: 0.9% Saline Lock 10 ML Syringe IV ×2 (08:23→21:09)
[2021-08-09] MEDS: HYDROmorphone 0.5 MG/0.5 ML SYRINGE IV (08:23)
[2021-08-09] MEDS: Famotidine 200 MG/20 ML MDV 20 MG in 0.9% Normal Saline (Pres. free 8 ML 300 MG IV (08:23)
--- NOTE | 2021-08-09 09:15 | PN_ITS ---
Progress Note Patient has ongoing abdominal discomfort and the x-ray from this morning shows a more dilated cecum with 11 cm diameter. Plan for decompressive colonoscopy. I will make the patient n.p.o. I explained endoscopy in detail to the patient. I explained the risks including but not limited to stroke or heart attack with anesthesia, perforation of the GI tract, bleeding, infection. I explained that any of these could necessitate further emergency surgery. I also explained the possibility of perforation of the cecum due to its extreme distention. The patient understands and all questions were answered sufficiently. The patient wishes to proceed with procedure. Nehemias Pan MD Pager: [facility] [address] [place] [address], [address] [place] [address] Office:
--- NOTE | 2021-08-09 12:59 | PN.HOSP_ITS ---
Subjective Subjective Patient seen and examined. She still complains of consistent abdominal pain and did not get any relief whatsoever from her enema yesterday. She has not had any bowel movements and states she is passing minimal gas. Patient looks very uncomfortable during review. She denies any nausea or vomiting. Review of sys tems otherwise negative. Abdominal x-ray this morning showed air-fluid level with contrast seen within a distended large bowel loops most likely representing the transverse colon. She did have a therapeutic barium enema yesterday which suggested obstruction in the distal transverse colon at the level of the splenic flexure. I did discuss patient's symptoms with general surgery today and plan is for patient to have a decompressive colonoscopy. Objective Data Objective Data Vital Signs: Vital Signs Temp Pulse Resp BP Pulse Ox 98.0 F 66 18 162/68 H 98 08/09/21 11:58 08/09/21 11:58 08/09/21 11:58 08/09/21 11:58 08/09/21 11:58 Oxygen Delivery Method Room Air Weight: 157 lb 1 oz Body Mass Index (BMI) 26.9 Intake & Output: Intake and Output for Last 24 Hours 08/07/21 08/08/21 08/09/21 23:59 23:59 23:59 Intake Total 520 / 520 2049 1926.5 / 1926.5 Balance 520 / 520 2049 1926.5 / 1926.5 Lab / Micro Data Result Diagrams: 08/09/21 06:50 08/09/21 06:50 Labs: Laboratory Results - last 24 hr 08/09/21 06:50: WBC 5.8, RBC 3.95 L, Hgb 9.8 L, Hct 30.8 L, MCV 78.0 L, MCH 24.8 L, MCHC 31.8 L, RDW Std Deviation 47.7 H, RDW Coeff of Tom 16.8 H, Plt Count 298, MPV 10.7, Immature Gran % (Auto) 0.500, Neut % (Auto) 69.6, Lymph % (Auto) 15.4 L, [place] % (Auto) 10.6 H, Eos % (Auto) 3.4, Baso % (Auto) 0.5, Absolute Neuts (auto) 4.1, Absolute Lymphs (auto) 0.90, Nucleated RBC % 0 08/09/21 06:50: Sodium 137, Potassium 3.7, Chloride 104, Carbon Dioxide 26.0, Anion Gap 7, BUN 9, Creatinine 0.72, Estim Creat Clear Calc 35.52, Est GFR (MDRD) Af Amer 100, Est GFR (MDRD) Non-Af 83, BUN/Creatinine Ratio 12.6, Glucose 79, Calcium 8.8, Phosphorus 2.3 L, Magnesium 1.9 Radiography Diagnostic Testing: Radiology Impression Abdomen X-Ray 08/09/21 06:00 IMPRESSION: Air-fluid level with contrast is seen within a distended large bowel loops most likely representing the transverse colon. Electronically Signed: Rodríguez Bauman MD at 8:37 EDT , Service support , Physical Exam Const alert and oriented x3 Constitutional Narrative: looks very uncomfortable Exam Limitations: no limitations HEENT head/scalp atraumatic, moist oral mucous membranes and oropharynx normal Head and Scalp: normocephalic Eyes PERRL, EOMs intact bilaterally and conjunctivae normal Neck no lymphadenopathy Resp normal respiratory effort, no retractions, no use of accessory muscles and clear to auscultation bilaterally Cardio regular rate, regular rhythm, S1 normal heart sound, S2 normal heart sound and no murmurs GI GI Narrative: abdomen mildly distended, minimal bowel sounds, moderate tenderness on palpation, no guarding or rebound tendnerness. Extremity normal to inspection, full ROM and no clubbing, cyanosis or edema Peripheral Pulses: Yes pulses 2+ throughout Skin no rashes or lesions noted Neuro oriented x3, CN's II-XII intact bilaterally and moves all extremities Sensorium / Orientation: awake and alert Psych affect normal Assessment & Plan Assessment/Plan (1) Abdominal pain: QUALIFIERS: Abdominal location: generalized Qualified Code(s): R10.84 - Generalized abdominal pain (2) Constipation, acute: PLAN: #Acute on chronic constipation * therapeutic enema done yesterday suggested obstruction in the distal transverse colon at the level of the splenic flexure. * abdominal xray done today showed air fluid level with contrast in the distended large bowel loop most likely representing the transverse colon. * for decompressive colonoscopy today due to persistent pain and inability to pass gas nor have a bowel movement * being hydrated with IVF * #CAD s/p CABG x3, aspirin on hold. On statin and losartan which also on hold. #Hypertension: On IV hydralazine as needed. Home medication held on account of patient being n.p.o. #Hyperlipidemia: On statin. #History of carotid disease: On aspirin. #Hypothyroidism: On Synthroid #History of colon cancer * S/p partial colectomy in March 2020 at [facility]. * On Keytruda on outpatient basis. * #History of TIA: On aspirin and statin as well as BP meds which are on hold as patient is n.p.o. #Anxiety: On Ativan as needed #GERD: On famotidine DVT prophylaxis: heparin Charges/Coding Visit Charges Inpatient E&M: 09936 Subs Hosp L3
--- NOTE | 2021-08-09 14:15 | COL._PTH ---
PATIENT: SAMANTHA TROY LOC: MS3 U#:[id number] AGE/SX: 86/F ROOM: ID321 RE08/07/[address]: Dr. Anna aCsillas MD : 1935 BED: 1 DIS: 08/26/2021 SPEC #: [id number] RECD: 08/10/21 07:57 STATUS: YUE [place] #: [id number] [place]: 08/09/21 14:[address]: Nehemias Pan DEPT: SURGICAL PATHOLOGY RECD BY: Carolina Clark ENTERED: 08/10/21 09:25 SP TYPE: COLON OTHR DR: MD Dr. 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 Diverticulosis. See comment. SJ:phan 08/14/2021 COMMENT Immunohistochemistry ([id number]) is compatible with clinical impression of metastatic colonic primary. Mucin stain with matched control is also used in the evaluation of the specimen. The tumor cells are positive for mucin. Numerous serosal deposits are noted including complete replacement of lymph nodes by the metastatic tumor. Case has been reviewed in consultation with Dr. Wallace who concurs with the above diagnosis. IDC:AM MICROSCOPIC DESCRIPTION Slides are reviewed. GROSS DESCRIPTION Received in fixative is one container labeled with the patient's name and designated sigmoid colon. The specimen consists of a segment of colon with attached pericolonic adipose tissue measuring 15 cm in length. One resection margin is stapled and the opposite resection margin is open. The serosal surface shows focal gomez-white, indurated area. No mucosal lesion is identified. The pericolonic adipose tissue shows focal area of congestion and hemorrhage. Sections reveal multiple diverticula. No obviously ruptured diverticula are noted. More dictation will follow after overnight fixation. / SJ:phan 08/10/21 Sections of pericolonic adipose tissue reveal a few indurated nodules consistent with lymph nodes. The largest lymph node measures 0.5 cm in greatest dimension. [place] Smearer sections are submitted in nine cassettes as follows: 1 ? stapled resection margin, 2 ? opposite margin, 3-5 ? diverticula, 6 ? gomez-white area on the serosal surface, 7 ? multiple lymph nodes, 8 & 9 ? pericolonic adipose tissue. / SJ:phan 08/11/21 TC:0 CPT: 21477, 01467
--- NOTE | 2021-08-09 15:28 | PCM.PN.BLA ---
Progress Note I attempted a colonoscopy. I was unable to pass the strictured area. Dr. Richards was called and he was unable to pass this area as well. At this point the procedure was aborted and the patient was taken to PACU. GI was contacted and he would like to attempt colonoscopy with dilation and possible decompression. He will reattempt colonoscopy and if he is unsuccessful I will plan to take the patient to surgery for right hemicolectomy with possible stoma. I discussed this with the patient's son Silver. I discussed surgery in detail with him as well as the risks including not limited to heart attack or stroke, bleeding, infection, need for stoma, injury to other organs or other areas of bowel, injury to ureters or bladder. I also discussed this with the patient although I will have her son consent as she has had anesthesia recently. Patient is in agreement to proceed with this plan. Nehemias Pan MD Pager: [facility] [address] [place] [address] [address] [place] [address] Office:
[2021-08-09] MEDS: Bupivacaine Mpf 0.5% 30 ML VIAL (18:30)
--- NOTE | 2021-08-09 19:11 | OP.PCM_ITS ---
Problems Associated Problem List Diagnoses (1) Bowel obstruction: Report of Operation Date of Procedure: 08/09/21 Pre-Operative Diagnosis: Colonic obstruction Post-Operative Diagnosis: Sigmoid obstruction due to sigmoid mass and carcinomatosis Surgery/Procedure Performed:: Exploratory laparotomy with sigmoid colectomy and end colostomy county tax assessor: Kwan Richards Specimen's removed: Sigmoid colon Description of Procedure: Patient was brought back to the operating room and general anesthesia was induced. Jorge catheter was placed and the patient was placed in lithotomy position. Next the abdomen was prepped and draped in usual sterile fashion as was the perineum. A midline incision was created with a scalpel and deepened to the fascia which was elevated and incised. Fingers were used to protect the bowel as electrocautery was used to open the fascia superiorly and inferiorly. The cecum and descending colon were very distended. Patient had firm mass in the sigmoid colon causing obstruction with clear transition point. Patient appeared to have carcinomatosis with studding of the peritoneum as well as cancer growing in the peritoneum of the pelvis. A small window was made in the distal sigmoid mesentery and a stapler was used to divide the distal sigmoid. Next impact LigaSure was used to take down the mesentery back to healthy descending colon. The pelvis was then irrigated and suctioned dry and hemostasis was obtained using electrocautery and LigaSure impact. Next the rest of the bowel was inspected and there appeared to be no other areas of obstruction. Next the left lower quadrant skin was grasped and elevated and removed using electrocautery and the fat was divided until the fascia was encountered and the fascia was opened in a cruciate fashion and the muscle was divided and the posterior fascia was opened as well. The distal colon was placed through the ostomy opening and sutured to the posterior sheath using 3-0 Vicryl sutures. Next the fascia was closed using two #1 PDS suture starting from the top and bottom meeting in the middle. The subcutaneous tissue was irrigated and suctioned dry and the skin was stapled. Local anesthetic was injected near the midline incision. Next the towel was draped over the midline incision and the colostomy was matured using 3-0 Vicryl sutures. There was a copious amount of stool expressed when the colon was entered. There was good bleeding at the colon edges and the mucosa appeared pink. A colostomy bag was placed. Next dressings were placed over the midline incision and the patient was awoken and taken to PACU in stable condition with a Jorge catheter in place. Admit VTE Documentation VTE Mechan Device Prophylaxis: SCD's
[2021-08-10] VITALS (16 sets, daily range): BP systolic 132–151; BP diastolic 56–73; PULSE 85–145; RESP 16–20; TEMP 36.6–37.9; O2SAT 94–97; BMI 27.0
[2021-08-10] MEDS: Morphine 2 MG/ML Syringe IV ×5 (00:01→18:20)
[2021-08-10] MEDS: Ondansetron 4 MG/2 ML Vial IV (00:02)
[2021-08-10] MEDS: 0.9% Saline Lock 10 ML Syringe IV ×4 (00:02→18:21)
[2021-08-10] MEDS: Heparin Injection (Vial) 5,000 UNIT/ML VIAL 5000 UNIT SC ×3 (05:08→21:08)
[2021-08-10] MEDS: Levothyroxine 75 MCG Tablet PO (05:15)
[2021-08-10] MEDS: Acetaminophen 325 MG Tablet 650 MG PO (05:15)
[2021-08-10 06:46] LABS: Absolute Lymphocyte Count 0.58 X10^3/uL (0.83-4.51); Absolute Neutrophil Count 15.5 X10^3/uL (2.0-7.7); Basophil# 0.04 X10^3/uL; Basophil% 0.2 % (0-1); Eosinophil# 0.01 X10^3/uL; Eosinophils% 0.1 % (0-5); Hematocrit 36.4 % (37-47); Hemoglobin 11.3 g/dL (12.0-15.0); Lymphocyte # 0.58 X10^3/ul (0.83-4.51); Lymphocyte % 3.3 % (19-41); Mean Corpuscular Hgb 24.7 pg (27.0-32.0); Mean Corpuscular Volume 79.6 fL (81-99); Monocyte# 1.18 X10^3/uL; Monocyte% 6.8 % (0-10); NRBC Flagged by Analyzer 0 % (0-5); Neutrophil # 15.51 X10^3/uL (2.7-7.7); Neutrophil % 89.2 % (47-70); POSITIVE DIFFERENTIAL YES; Platelet Count 392 K/mm3 (150-450); RBC Distribution Width CV 17.1 % (11.6-14.6); Red Blood Count 4.57 M/mm3 (4.2-5.4); White Blood Count 17.4 K/mm3 (4.4-11.0)
[2021-08-10] MEDS: Lactated Ringers 1,000 ML 100 ML IV (06:54)
[2021-08-10 06:55] LABS: Differential Indicated SCAN CRITERIA MET
[2021-08-10 07:05] LABS: Differential Comment SCANNED
[2021-08-10 07:08] LABS: Anion Gap 12 (5-15); BUN 8 mg/dL (7-18); BUN/Creat Ratio 8.5 RATIO (10-20); Chloride 104 mmol/L (98-107); Creatinine, Serum 0.94 mg/dL (0.55-1.02); EST Glomerular Filtration Rate 60 mL/min (>60); Est Glom Filt Rate - Afr Amer 73 mL/min (>60); Estimated Creatinine Clearance 37.78 ml/min; Glucose 114 mg/dL (74-106); Phosphorus 4.3 mg/dL (2.5-4.9); Sodium Level 136 mmol/L (136-145)
[2021-08-10] MEDS: Hydrocortisone 10 MG Tablet 5 MG PO (08:29)
--- NOTE | 2021-08-10 08:45 | PCM.PN.SRG ---
Subjective Subjective Patient complains of abdominal soreness. No nausea or vomiting. Objective Data Objective Data Vital Signs: Vital Signs Temp Pulse Resp BP Pulse Ox 99.6 F H 103 H 18 144/63 H 97 08/10/21 08:05 08/10/21 08:05 08/10/21 08:05 08/10/21 08:05 08/10/21 08:05 Oxygen Flow Rate (L/min) 2 Oxygen Delivery Method Nasal Cannula Weight: 157 lb 0.987 oz Body Mass Index (BMI) 26.9 Intake & Output: Intake and Output for Last 24 Hours 08/08/21 08/09/21 08/10/21 23:59 23:59 23:59 Intake Total 2049 3531.83 / 3531.83 1040 / 1040 Output Total 300 / 500 400 / 400 Balance 2049 3231.83 / 3031.83 640 / 640 Lab / Micro Data Result Diagrams: 08/10/21 06:26 08/10/21 06:26 Labs: Laboratory Results - last 24 hr 08/09/21 17:07: Blood Type O POSITIVE, Antibody Screen POSITIVE H, Antibody Identification ANTI-E, Antigen Identification E ANTIGEN - NEGATIVE, Crossmatch See Detail 08/10/21 06:26: WBC 17.4 H, RBC 4.57, Hgb 11.3 L, Hct 36.4 L, MCV 79.6 L, MCH 24.7 L, MCHC 31.0 L, RDW Std Deviation 49.0 H, RDW Coeff of Tom 17.1 H, Plt Count 392, MPV 10.0, Immature Gran % (Auto) 0.400, Neut % (Auto) 89.2 H, Lymph % (Auto) 3.3 L, [place] % (Auto) 6.8, Eos % (Auto) 0.1, Baso % (Auto) 0.2, Absolute Neuts (auto) 15.5 H, Absolute Lymphs (auto) 0.58 L, Nucleated RBC % 0, Differential Comment SCANNED 08/10/21 06:26: Sodium 136, Potassium 4.0, Chloride 104, Carbon Dioxide 20.0 L, Anion Gap 12, BUN 8, Creatinine 0.94, Estim Creat Clear Calc 37.78, Est GFR (MDRD) Af Amer 73, Est GFR (MDRD) Non-Af 60, BUN/Creatinine Ratio 8.5 L, Glucose 114 H, Calcium 8.0 L, Phosphorus 4.3 Physical Exam Const no apparent distress Resp normal respiratory effort Cardio regular rate GI soft to palpation Palpation: tender Assessment & Plan Assessment/Plan (1) Bowel obstruction: QUALIFIERS: Intestinal obstruction type: unspecified Intestinal obstruction extent: unspecified extent Qualified Code(s): K56.609 - Unspecified intestinal obstruction, unspecified as to partial versus complete obstruction (2) Carcinomatosis: PLAN: The patient had obstruction of the sigmoid colon due to carcinomatosis from her colon cancer. The obstructing lesion was removed and end colostomy was created yesterday. Patient is having output from her stoma but this is likely due to just increasing abdominal pressure and history of obstruction she is likely not having any active bowel movements yet. Continue n.p.o. with IV fluids and IV antibiotics for 24 hours. DANIEL Jorge. Luisay for ice chips and sips and p.o. medications. Nehemias Pan MD Pager: [facility] [address] [place] [address], [address] [place] [address] Office:
--- NOTE | 2021-08-10 10:24 | CASEMGMT ---
Social Work Note SW participated in rounds. SW updated that pt is depressed. SW in to speak with pt. SW introduced self and role at [facility]. Pt states that she is doing ok. SW spoke with pt about her colon cancer. Pt states she was diagnosed in colon cancer in March 2021. Pt states that her oncologist is Dr. Glass. Pt states that she is currently receiving Keytruda Immunotherapy. Pt states that June in 2019 was when this all started when she had a colonoscopy done and they couldn't figure out what was wrong. Pt states she's had a few colonoscopy's. Pt states that her family is very supportive and confirms she has two sons Naveed and Silver that see's pt everyday. Pt states she is not sure if she wants to do Chemotherapy/Radiation. SW informed pt that she can talk to Dr. Glass about options and then make a decision. SW spoke with pt regarding depression. Pt states she thinks she is starting to have some depression. Pt states that she is 86 and has had heart surgery, strokes and now cancer. Pt states she is not on any medication and doesn't think she needs any. Pt denied any history of suicidal thoughts/plans/ideations. Pt denied any current suicidal thoughts/plans/ideations. SW offered to provide pt with counseling agencies, cancer support groups, etc. if she wanted and pt denied. Pt denied additional needs or concerns at this time. Kayla Montemayor [employer] INSURANCE AGENT, COMMISSIONS COORDINATOR
[2021-08-10] MEDS: Pantoprazole Sodium 40 MG Tablet PO (10:59)
[2021-08-10] MEDS: Losartan Potassium 50 MG Tablet PO (10:59)
[2021-08-10] MEDS: BENZOCAINE/MENTHOL 1 LOZENGE MUCOUS MEM ×2 (11:46→15:18)
--- NOTE | 2021-08-10 12:04 | CASEMGMT ---
Addendum entered by Shae Mehta 08/10/21 15:10: Received notification from Jolly at [facility], pt is out of service area. TC to [facility] to verify acceptance, decision is not made. They have an office in [facility] and they will determine which office, if either could staff. TC to [facility] who is unable to service [place] d/t staffing. Original Note: BAIRON JUAREZ in to pt room to discuss HHC options. Patient was provided a list of [facility] providers including quality and resource use data and consistent with the patient?s preferred geographic region, medical needs, and insurance network. The patient?s preferred provider is [facility] and [facility]. BAIRON JUAREZ called [facility], they do not service this area. Message left with [facility], awaiting to see if they service the area. TC to [facility] who cannot staff [place]. TC to [facility], they do not accept pt insurance. TC to [facility] in [place]. Faxed referral for consideration. TC to [facility], who does not service [place].
--- NOTE | 2021-08-10 13:53 | PN.HOSP_ITS ---
Subjective Subjective Patient seen and examined. She complains of abdominal pain and feels very uncomfortable. Patient says she also feels depressed as she thinks she has a recurrence of her cancer. Decompressive colonoscopy was attempted yesterday but this was unsuccessful as well as a mass in the sigmoid colon causing a stricture which colonoscopy could not bypass. She therefore had emergent sigmoidectomy with colostomy placement yesterday. Complains of pain at the site of the surgery. Review of systems otherwise negative. Objective Data Objective Data Vital Signs: Vital Signs Temp Pulse Resp BP Pulse Ox 97.8 F 98 18 132/56 H 94 08/10/21 11:25 08/10/21 13:02 08/10/21 11:25 08/10/21 11:25 08/10/21 13:20 Oxygen Flow Rate (L/min) 2 Oxygen Delivery Method Nasal Cannula Weight: 157 lb 0.987 oz Body Mass Index (BMI) 26.9 Intake & Output: Intake and Output for Last 24 Hours 08/08/21 08/09/21 08/10/21 23:59 23:59 23:59 Intake Total 2049 3531.83 / 3531.83 1240 / 1240 Output Total 300 / 500 400 / 400 Balance 2049 3231.83 / 3031.83 840 / 840 Lab / Micro Data Result Diagrams: 08/10/21 06:26 08/10/21 06:26 Labs: Laboratory Results - last 24 hr 08/09/21 17:07: Blood Type O POSITIVE, Antibody Screen POSITIVE H, Antibody Identification ANTI-E, Antigen Identification E ANTIGEN - NEGATIVE, Crossmatch See Detail 08/10/21 06:26: WBC 17.4 H, RBC 4.57, Hgb 11.3 L, Hct 36.4 L, MCV 79.6 L, MCH 24.7 L, MCHC 31.0 L, RDW Std Deviation 49.0 H, RDW Coeff of Tom 17.1 H, Plt Count 392, MPV 10.0, Immature Gran % (Auto) 0.400, Neut % (Auto) 89.2 H, Lymph % (Auto) 3.3 L, [place] % (Auto) 6.8, Eos % (Auto) 0.1, Baso % (Auto) 0.2, Absolute Neuts (auto) 15.5 H, Absolute Lymphs (auto) 0.58 L, Nucleated RBC % 0, Differential Comment SCANNED 08/10/21 06:26: Sodium 136, Potassium 4.0, Chloride 104, Carbon Dioxide 20.0 L, Anion Gap 12, BUN 8, Creatinine 0.94, Estim Creat Clear Calc 37.78, Est GFR (MDRD) Af Amer 73, Est GFR (MDRD) Non-Af 60, BUN/Creatinine Ratio 8.5 L, Glucose 114 H, Calcium 8.0 L, Phosphorus 4.3 Physical Exam Const alert and oriented x3 Constitutional Narrative: looks uncomfortable and depressed. Exam Limitations: no limitations HEENT head/scalp atraumatic, moist oral mucous membranes and oropharynx normal Head and Scalp: normocephalic Eyes PERRL, EOMs intact bilaterally and conjunctivae normal Neck no lymphadenopathy Resp normal respiratory effort, no retractions, no use of accessory muscles and clear to auscultation bilaterally Cardio regular rate, regular rhythm, S1 normal heart sound, S2 normal heart sound and no murmurs GI GI Narrative: abdomen mildly distended, minimal bowel sounds, moderate tenderness on palpation, clean dressing over laparotomy site. Extremity normal to inspection, full ROM and no clubbing, cyanosis or edema Peripheral Pulses: Yes pulses 2+ throughout Skin no rashes or lesions noted Neuro oriented x3, CN's II-XII intact bilaterally and moves all extremities Sensorium / Orientation: awake and alert Psych Psych Narrative: depressed affect. Assessment & Plan Assessment/Plan (1) Abdominal pain: QUALIFIERS: Abdominal location: generalized Qualified Code(s): R10.84 - Generalized abdominal pain (2) Constipation, acute: PLAN: #Acute on chronic constipation due to colon cancer with carcinomatosis * therapeutic enema done suggested obstruction in the distal transverse colon at the level of the splenic flexure. * abdominal xray done today showed air fluid level with contrast in the distended large bowel loop most likely representing the transverse colon. * decompressive colonoscopy was unsuccessful as she had a sigmoid mass causing a stricture. * she had an emergent exploratory laparotomy with sigmoid colectomy and end colostomy * general surgery on board. * on IV pain meds. * oncology consulted. #CAD s/p CABG x3, aspirin on hold. On statin and losartan which also on hold. #Hypertension: On IV hydralazine as needed. Home medication held on account of patient being n.p.o. #Hyperlipidemia: On statin. #History of carotid disease: On aspirin. #Hypothyroidism: On Synthroid #History of colon cancer * S/p partial colectomy in March 2021 at [facility]. * On Keytruda on outpatient basis. * laparotomy findings as above. * #History of TIA: On aspirin and statin as well as BP meds which are on hold as patient is n.p.o. #Anxiety: On Ativan as needed #GERD: On famotidine DVT prophylaxis: heparin Charges/Coding Visit Charges Inpatient E&M: 05693 Subs Hosp L3
[2021-08-10] MEDS: 0.9% Normal Saline 1,000 ML 100 ML IV (18:20)
[2021-08-11] VITALS (14 sets, daily range): BP systolic 145–157; BP diastolic 65–81; PULSE 81–106; RESP 16–20; TEMP 36.8–37.2; O2SAT 94–97; BMI 27.0
[2021-08-11] MEDS: 0.9% Saline Lock 10 ML Syringe IV ×2 (02:08→03:02)
[2021-08-11] MEDS: Morphine 2 MG/ML Syringe IV ×2 (02:08→03:02)
[2021-08-11] MEDS: 0.9% Normal Saline 1,000 ML 100 ML IV ×3 (03:07→23:09)
[2021-08-11] MEDS: Levothyroxine 75 MCG Tablet PO (05:16)
[2021-08-11] MEDS: Heparin Injection (Vial) 5,000 UNIT/ML VIAL 5000 UNIT SC ×3 (05:16→21:55)
--- NOTE | 2021-08-11 06:02 | CON.PCM.ON_ITS ---
Assessment & Plan Assessment/Plan (1) Abdominal pain: Status: Acute Code(s): R10.9 - Unspecified abdominal pain Qualifiers: Abdominal location: generalized Qualified Code(s): R10.84 - Generalized abdominal pain (2) Carcinomatosis: Status: Acute Code(s): C80.0 - Disseminated malignant neoplasm, unspecified (3) History of colon cancer: Status: Acute Code(s): Z85.038 - Personal history of other malignant neoplasm of large intestine (4) Bowel obstruction: Status: Acute Code(s): K56.609 - Unspecified intestinal obstruction, unspecified as to partial versus complete obstruction Qualifiers: Intestinal obstruction type: unspecified Intestinal obstruction extent: unspecified extent Qualified Code(s): K56.609 - Unspecified intestinal obstruction, unspecified as to partial versus complete obstruction Plan: Impression: -Is an 86-year-old female who was found to have a 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 Disease was microsatellite unstable. She received several cycles of pembrolizumab but unfortunately had disease progression to the point of bowel obstruction. Now status post exploratory laparoscopy with diverting colostomy. Multiple mesenteric and peritoneal nodules observed. Discussed with Dr. Pan. -She is frail and currently recovering from surgery. Clinical course over the next few days to weeks unknown. Discussed that she would unlikely to be able to tolerate chemotherapy, but could certainly be considered pending her recovery. -Appreciate surgical and medical management. Plan/recommendations: -Follow up with me in the office after discharge from [facility] inpatient setting--I will ask my office staff to arrange. HPI Consult Data Date of Service:: 08/11/21 PCP / Referring Provider: Dr. Jamie Dickson MD Attending: Dr. Nehemias Pan MD Chief Complaint Chief Complaint: Metastatic cololon cancer History of Present Illness History of Present Illness: Oncologic problem(s): 1) metastatic colorectal cancer. 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 She started feeling unwell last summer. Initially, she attributed the symptoms to the loss of her from Covid. However her fatigue and shortness of breath progressed. A CBC on 06/22/2020 revealed a hemoglobin of 8.4 g/dL. The MCV was 80.1 and the MCH was 23.9. Total white blood cell count and platelet count were normal. She underwent an evaluation for GI bleeding including colonoscopy and EGD in July 2020. On the colonoscopy she was observed to have one 6 mm polyp in the cecum which was removed. Diverticulosis was noted in the sigmoid colon but the colonic mucosa was normal otherwise. On EGD, the portion of the jejunum examined was normal. The duodenum was noted to be normal. Changes of gastritis were observed in the stomach. There was a medium size hiatal hernia and nonsevere reflux esophagitis changes were noted. The areas of gastritis and esophagitis were biopsied. Pathology demonstrated that the polyp removed from the cecum contained multiple fragments of sessile serrated polyp with low-grade cytologic dysplasia. Biopsy from the gastric antrum revealed gastric antral mucosa with minimal changes of reactive gastropathy. There was no morphologic evidence of H. pylori. Biopsy from the distal esophagus demonstrated cardia fundic type mucosa with no significant diagnostic alteration, negative for intestinal metaplasia. There is also scant unremarkable squamous epithelium. She also had small bowel endoscopy in November 2020. Normal small bowel study. She had been on ferrous sulfate 1 tablet twice a day. She was advised to stop Plavix. She continues on low-dose aspirin daily. Several rechecks of iron and CBC demonstrated ongoing anemia with low serum iron and saturation. Ferritin low normal range. Patient underwent capsule endoscopy 12/05/2020. Small bowel mucosa was reported to appear normal. No active bleeding or lesions with bleeding potential were observed. The villi appeared to be normal in height and morphology. There was no scalloping of folds, features of inflammation or ulceration or erosion. Capsule passed to the cecum. She remained very fatigued. She was having dyspnea with exertion. She lives in a one-story home but has her washing machine and dryer in the basement. She was able to go up and down the steps but it caused dyspnea and she had to take her time. No black stools or bloody stools. No chest pain or pressure. No lower extremity swelling or edema. No other unusual bleeding or unexplained bruising. She has a long history of heartburn. She had been on proton pump inhibitor for a long time. She occasionally had breakthrough reflux depending on what she ate. She received a dose of parenteral iron. Oral iron was stopped as she was having more more constipation. Underwent repeat colonoscopy in March 2021 secondary to continued GI bleeding. She was found to have a tumor in the transverse colon causing stricture. Biopsy demonstrated infiltrating adenocarcinoma poorly differentiated. Result: - Loss of expression of MLH1 and PMS2 proteins in carcinoma nuclei. - Normal expression of MSH2 and MSH6 proteins in carcinoma nuclei. Mismatch repair (MMR) status: Deficient CT chest on 03/30/2021 revealed biapical pleural parenchymal fibrotic type changes with stable pleural-based stellate density medial left upper lobe apex presumed related to scarring. There were stable bilateral pulmonary nodules when compared to previous CT chest 08/2020. Largest nodule was [address] abdomen pelvis demonstrated a narrowed thick-walled mid transverse colon presumed related to known adenocarcinoma. There was upstream colonic dilation there is associated stranding of pericolonic fat with multiple scattered omental nodules within the abdomen and pelvis consistent with carcinomatosis. There is a 0.8 cm hypodense splenic lesion. Bilateral 1 cm and less in size hypodense renal cortical lesions too small to further characterize were observed. Small hiatal hernia and small electronic device within the cecum potentially related to capsule endoscopy. There was 1/2 cm ovarian fluid density structure, considered most likely consistent with benign finding mixed lucent sclerotic changes in the posterior L3 vertebral body possibly related to a combination of hemangioma degenerative changes. Patient underwent diagnostic laparoscopy, laparoscopic peritoneal biopsy and open transverse colectomy on 04/05/2021. Pathology: A. ?Right abdominal wall nodule, biopsy ? Positive for metastatic adenocarcinoma with mucinous features. B. ?Transverse colon, resection ? Invasive poorly differentiated adenocarcinoma with mucinous and signet ring cell features with invasion through the full- thickness of the bowel wall and involvement of the visceral peritoneal surface. ?See comment. Lymph nodes (20), pericolonic ? Metastatic adenocarcinoma identified in 9 of 20 lymph nodes (9/20). ?Current therapy: 1) Pembrolizumab. Underwent a CT scan on 07/25/2021 to evaluate abdominal pain and status of disease following several doses of immunotherapy. That study demonstrated an increase in size of retroperitoneal lymph nodes thought possibly to be reactive in nature or related to metastatic disease. There were also findings suggesting acute uncomplicated diverticulitis. Patient was prescribed ciprofloxacin and Flagyl. She didn't start those medications Until several days later. CT of the abdomen and pelvis demonstrated changes of previous right hemicolectomy with anastomosis in the mid transverse colon. There was evidence of a markedly dilated portion of the transverse colon and fluid and fecal material within. Fluid was seen throughout the left hemicolon and down to the rectum and there was a questionable closed-loop obstruction. She was taken to the OR on 08/09 and underwent exploratory laparotomy with sigmoid colectomy and end colostomy. She was noted to have significantly dilated cecum and descending bowel. Mass observed obstructing the sigmoid in the pelvis. Numerous peritoneal studded metastasis were also observed. She still has abdominal distention and soreness from the surgery but marked re lief of the pain she had presented with. She is taking ice chips but her diet has not yet been advanced. No complaints of nausea. No feelings of hunger. Advanced Directives Power of Ed Transporter: Yes Living Will: Yes [facility] Medical History Anemia Atherosclerosis of coronary artery of [place] heart without angina pectoris Carotid artery stenosis Coronary artery disease COVID-19 virus detected (03/2020) Dyspnea on exertion Encounter for long-term current use of high risk medication Essential (primary) hypertension GERD (gastroesophageal reflux disease) History of TIA (transient ischemic attack) (08/2018) Hyperlipidemia Hypertension Hypothyroidism Idiopathic peripheral neuropathy Near syncope (10/28/19) Smoker Wears hearing aid in both ears Home Medications pantoprazole 40 mg PO DAILY 10/25/16 [History Last Taken 08/07/21] rosuvastatin 20 mg tablet 20 mg PO QHS 02/11/18 [History Last Taken 08/06/21] doxycycline hyclate 20 mg tablet 20 mg PO BID PRN tab 01/20/19 [History Last Taken Unknown] losartan 50 mg tablet 50 mg PO DAILY 11/09/19 [History Last Taken 08/06/21] lorazepam 0.5 mg tablet 0.5 mg PO BID PRN tab 06/09/20 [History Last Taken Unknown] ascorbic acid (vitamin C) 500 mg tablet 500 mg PO DAILY 12/07/20 [History Last Taken 03/25/21 10:00] levothyroxine 75 mcg tablet 75 mcg PO MOTUWETHFRSA 12/07/20 [History Last Taken 08/07/21] Keytruda 1 dose IV BOLUS CONT 08/07/21 [History Last Taken 07/28/21] acetaminophen 500 mg PO DAILY PRN 08/07/21 [History Last Taken 08/06/21] aspirin [Aspirin Low Dose] 81 mg PO DAILY 08/07/21 [History Last Taken 08/06/21] diphenhydramine-acetaminophen [Acetaminophen PM] 1 tab PO QHS PRN 08/07/21 [History Last Taken 08/06/21] docusate sodium 300 mg PO DAILY 08/07/21 [History Last Taken 3 Days Ago ~08/04/21] hydrocortisone 5 mg PO DAILY 08/07/21 [History Last Taken 08/07/21] Allergy/AdvReac Type Severity Reaction Status Date / Time hydrocodone bitartrate Allergy Nausea Verified 03/25/21 16:27 [From Vicodin] Sulfa (Sulfonamide Allergy Itching Verified 03/25/21 16:27 Antibiotics) Family History (Updated 08/07/21 @ 14:[address] Greta Jonas MD) Sister CAD (coronary artery disease) Sister , Age 79 CVA (cerebral vascular accident) Cancer Father Pulmonary embolism Family History other Surgical History H/O coronary artery bypass surgery (10/24/15) H/O foot surgery H/O foot surgery H/O tubal ligation History of appendectomy History of colonoscopy History of left heart catheterization (10/24/15) History of tubal ligation Hx of appendectomy Hx of cholecystectomy Hx of cholecystectomy Social History (Updated 08/07/21 @ 14:[address] Greta Jonas MD) household members: other details: Patient's grandson lives with her. Smoking Status: Former smoker how long ago did patient quit smoking: Quit 56 years prior with < 1 ppd since 19/19 years old. alcohol intake: never substance use type: does not use caffeine: No what type of physical activity do you participate in: other details: silver sneakers seatbelt use: always do you feel safe at home: Yes Physical Exam Narrative She is awake and alert. Ostomy in left lower quadrant appears healthy. Midline dressed surgical incision not examined, dressings not removed. Mild peripheral edema. Vital Signs Temperature 98.3 F 08/11/21 02:06 Temperature Source Temporal 08/11/21 02:06 Pulse Rate 89 08/11/21 03:59 Respiratory Rate 18 08/11/21 02:06 Respiratory Effort 08/10/21 21:00 Respiratory Depth Normal 08/10/21 21:00 Respiratory Pattern Normal 08/10/21 21:00 Blood Pressure 157/78 H 08/11/21 02:06 Blood Pressure Mean 104 08/11/21 02:06 Blood Pressure Source Monitor 08/11/21 02:06 Blood Pressure Position Sitting 08/11/21 02:06 Blood Pressure Location Right Arm 08/11/21 02:06 Baseline BP 165/68 08/09/21 20:11 Pulse Ox 94 08/11/21 02:06 Oxygen Delivery Method Nasal Cannula 08/11/21 02:06 Oxygen Flow Rate (L/min) 2 08/11/21 02:06 Fraction of Inspired Oxygen (FIO2) 2 08/10/21 08:10 Laboratory Results - last 24 hr 08/10/21 06:26: WBC 17.4 H, RBC 4.57, Hgb 11.3 L, Hct 36.4 L, MCV 79.6 L, MCH 24.7 L, MCHC 31.0 L, RDW Std Deviation 49.0 H, RDW Coeff of Tom 17.1 H, Plt Count 392, MPV 10.0, Immature Gran % (Auto) 0.400, Neut % (Auto) 89.2 H, Lymph % (Auto) 3.3 L, [place] % (Auto) 6.8, Eos % (Auto) 0.1, Baso % (Auto) 0.2, Absolute Neuts (auto) 15.5 H, Absolute Lymphs (auto) 0.58 L, Nucleated RBC % 0, Differential Comment SCANNED 08/10/21 06:26: Sodium 136, Potassium 4.0, Chloride 104, Carbon Dioxide 20.0 L, Anion Gap 12, BUN 8, Creatinine 0.94, Estim Creat Clear Calc 37.78, Est GFR (MDRD) Af Amer 73, Est GFR (MDRD) Non-Af 60, BUN/Creatinine Ratio 8.5 L, Glucose 114 H, Calcium 8.0 L, Phosphorus 4.3 Diagnostic Data Abdomen/Pelvis CT 08/07/21 09:25 IMPRESSION: The patient is status post right hemicolectomy with anastomosis in the mid transverse colon. There is evidence of a markedly dilated portion of the transverse colon with fluid and fecal material. Fluid is seen throughout the left hemicolon down to the rectum. Questionable close loop obstruction. Please correlate with the operative note. Electronically Signed: Rodríguez Bauman MD at 11:00 EDT , Service support , Therapeutic Barium Enema Intussusception 08/07/21 13:02 IMPRESSION: Findings suggest the obstruction in the distal transverse colon at the level of splenic flexure. The patient could not tolerate anymore pressure at this time. Electronically Signed: Rodríguez Bauman MD at 14:22 EDT , Service support , Abdomen X-Ray 08/09/21 06:00 IMPRESSION: Air-fluid level with contrast is seen within a distended large bowel loops most likely representing the transverse colon. Electronically Signed: Rodríguez Bauman MD at 8:37 EDT , Service support ,
[2021-08-11] MEDS: Hydrocortisone 10 MG Tablet 5 MG PO (07:53)
[2021-08-11 08:03] LABS: Absolute Lymphocyte Count 0.72 X10^3/uL (0.83-4.51); Absolute Neutrophil Count 10.7 X10^3/uL (2.0-7.7); Basophil# 0.02 X10^3/uL; Basophil% 0.2 % (0-1); Eosinophil# 0.41 X10^3/uL; Eosinophils% 3.1 % (0-5); Hematocrit 28.8 % (37-47); Hemoglobin 9.1 g/dL (12.0-15.0); Lymphocyte # 0.72 X10^3/ul (0.83-4.51); Lymphocyte % 5.5 % (19-41); Mean Corp Hgb Conc 31.6 g/dL (32-36); Mean Corpuscular Hgb 24.6 pg (27.0-32.0); Mean Corpuscular Volume 77.8 fL (81-99); Mean Platelet Vol. 10.6 fl (6.2-12.0); Monocyte# 1.13 X10^3/uL; Monocyte% 8.7 % (0-10); NRBC Flagged by Analyzer 0 % (0-5); Neutrophil # 10.71 X10^3/uL (2.7-7.7); Platelet Count 333 K/mm3 (150-450); RBC Distribution Width CV 17.2 % (11.6-14.6); White Blood Count 13.1 K/mm3 (4.4-11.0)
[2021-08-11 08:17] LABS: Anion Gap 9 (5-15); BUN 8 mg/dL (7-18); BUN/Creat Ratio 11.4 RATIO (10-20); Calcium,Total 8.1 mg/dL (8.5-10.1); Chloride 106 mmol/L (98-107); EST Glomerular Filtration Rate 84 mL/min (>60); Est Glom Filt Rate - Afr Amer 102 mL/min (>60); Estimated Creatinine Clearance 35.52 ml/min; Glucose 100 mg/dL (74-106); Potassium 3.6 mmol/L (3.5-5.1); Sodium Level 138 mmol/L (136-145)
[2021-08-11] MEDS: Acetaminophen 325 MG Tablet 650 MG PO ×2 (08:31→15:25)
[2021-08-11] MEDS: Pantoprazole Sodium 40 MG Tablet PO (08:32)
[2021-08-11] MEDS: Losartan Potassium 50 MG Tablet PO (08:32)
--- NOTE | 2021-08-11 10:25 | CASEMGMT ---
Addendum entered by Shae Mehta 08/11/21 16:15: Referral accepted by [facility]. Pt and pt son updated. Addendum entered by Shae Mehta 08/11/21 15:20: TC to [facility], received notification that they are unable to accept pt due to staffing. TC to [facility], left message with referral. TC to [facility]. They service this area and take pt insurance. Spoke with Ama, faxed referral at this time. Awaiting acceptance. Original Note: TC to [facility] in [place], spoke with louise who states that this was passed onto their [place] office and they should be reaching out to this RN CM today.
--- NOTE | 2021-08-11 10:58 | PN.HOSP_ITS ---
Subjective Subjective Patient seen and examined. She felt a bit better today, but felt weak still. Her abdominal pain is much better today. REview of systems is otherwise negative. She has remained hemodynamically stable. Oncology consulted yesterday. Objective Data Objective Data Vital Signs: Vital Signs Temp Pulse Resp BP Pulse Ox 99.0 F 98 18 153/70 H 97 08/11/21 07:55 08/11/21 07:55 08/11/21 07:55 08/11/21 07:55 08/11/21 08:09 Oxygen Flow Rate (L/min) 1 Oxygen Delivery Method Nasal Cannula Weight: 157 lb 0.987 oz Body Mass Index (BMI) 26.9 Intake & Output: Intake and Output for Last 24 Hours 08/09/21 08/10/21 08/11/21 23:59 23:59 23:59 Intake Total 3531.83 / 3531.83 3040 / 3040 998.33 / 998.33 Output Total 300 / 500 650 / 650 100 / 100 Balance 3231.83 / 3031.83 2390 / 2390 898.33 / 898.33 Lab / Micro Data Result Diagrams: 08/11/21 07:35 08/11/21 07:35 Labs: Laboratory Results - last 24 hr 08/11/21 07:35: WBC 13.1 H, RBC 3.70 L, Hgb 9.1 L, Hct 28.8 L, MCV 77.8 L, MCH 24.6 L, MCHC 31.6 L, RDW Std Deviation 49.0 H, RDW Coeff of Tom 17.2 H, Plt Count 333, MPV 10.6, Immature Gran % (Auto) 0.500, Neut % (Auto) 82.0 H, Lymph % (Auto) 5.5 L, [place] % (Auto) 8.7, Eos % (Auto) 3.1, Baso % (Auto) 0.2, Absolute Neuts (auto) 10.7 H, Absolute Lymphs (auto) 0.72 L, Nucleated RBC % 0 08/11/21 07:35: Sodium 138, Potassium 3.6, Chloride 106, Carbon Dioxide 23.0, Anion Gap 9, BUN 8, Creatinine 0.70, Estim Creat Clear Calc 35.52, Est GFR (MDRD) Af Amer 102, Est GFR (MDRD) Non-Af 84, BUN/Creatinine Ratio 11.4, Glucose 100, Calcium 8.1 L Physical Exam Const alert and oriented x3 Orientation / Consciousness: lethargic Exam Limitations: no limitations HEENT head/scalp atraumatic, moist oral mucous membranes and oropharynx normal Head and Scalp: normocephalic Eyes PERRL, EOMs intact bilaterally and conjunctivae normal Neck no lymphadenopathy Resp normal respiratory effort, no retractions, no use of accessory muscles and clear to auscultation bilaterally Cardio regular rate, regular rhythm, S1 normal heart sound, S2 normal heart sound and no murmurs GI GI Narrative: abdomen mildly distended, minimal bowel sounds, minimal tenderness on palpation, clean dressing over laparotomy site. Extremity normal to inspection, full ROM and no clubbing, cyanosis or edema Peripheral Pulses: Yes pulses 2+ throughout Skin no rashes or lesions noted Neuro oriented x3, CN's II-XII intact bilaterally and moves all extremities Sensorium / Orientation: awake and alert Psych Psych Narrative: depressed and flat affect. 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 * decompressive colonoscopy was unsuccessful as she had a sigmoid mass causing a stricture. * she had an emergent exploratory laparotomy with sigmoid colectomy and end co lostomy. Today is POD 2,. * general surgery on board. * on IV pain meds. * oncology consulted. #CAD s/p CABG x3, aspirin on hold. On statin and losartan which also on hold. #Hypertension: On IV hydralazine as needed. Home medication held on account of patient being n.p.o. #Hyperlipidemia: On statin. #History of carotid disease: On aspirin. #Hypothyroidism: On Synthroid #History of colon cancer * S/p partial colectomy in March 2021 at [facility]. * On Keytruda on outpatient basis. * laparotomy findings as above. * #History of TIA: On aspirin and statin as well as BP meds which are on hold as patient is n.p.o. #Anxiety: On Ativan as needed #GERD: On famotidine DVT prophylaxis: heparin
[2021-08-11] MEDS: Atorvastatin Calcium 40 MG Tablet PO (21:55)
[2021-08-12] VITALS (11 sets, daily range): BP systolic 146–172; BP diastolic 67–78; PULSE 72–88; RESP 18–20; TEMP 36.8–37.2; O2SAT 92–95
[2021-08-12] MEDS: Morphine 2 MG/ML Syringe IV ×3 (00:47→17:11)
[2021-08-12] MEDS: 0.9% Saline Lock 10 ML Syringe IV ×2 (00:47→06:12)
[2021-08-12] MEDS: Heparin Injection (Vial) 5,000 UNIT/ML VIAL 5000 UNIT SC ×3 (06:06→20:26)
[2021-08-12] MEDS: Levothyroxine 75 MCG Tablet PO (06:06)
[2021-08-12 06:23] LABS: Absolute Lymphocyte Count 0.69 X10^3/uL (0.83-4.51); Absolute Neutrophil Count 7.2 X10^3/uL (2.0-7.7); Basophil# 0.02 X10^3/uL; Basophil% 0.2 % (0-1); Eosinophil# 0.36 X10^3/uL; Hematocrit 26.3 % (37-47); Hemoglobin 8.3 g/dL (12.0-15.0); Lymphocyte # 0.69 X10^3/ul (0.83-4.51); Lymphocyte % 7.7 % (19-41); Mean Corp Hgb Conc 31.6 g/dL (32-36); Mean Corpuscular Hgb 24.7 pg (27.0-32.0); Mean Corpuscular Volume 78.3 fL (81-99); Monocyte# 0.67 X10^3/uL; Monocyte% 7.4 % (0-10); NRBC Flagged by Analyzer 0 % (0-5); Neutrophil # 7.21 X10^3/uL (2.7-7.7); Platelet Count 293 K/mm3 (150-450); RBC Distribution Width CV 17.2 % (11.6-14.6); RBC Distribution Width SD 49.1 fl (35.1-43.9); Red Blood Count 3.36 M/mm3 (4.2-5.4)
[2021-08-12 06:44] LABS: Anion Gap 7 (5-15); BUN 6 mg/dL (7-18); BUN/Creat Ratio 11.2 RATIO (10-20); Calcium,Total 7.9 mg/dL (8.5-10.1); Chloride 108 mmol/L (98-107); Creatinine, Serum 0.54 mg/dL (0.55-1.02); EST Glomerular Filtration Rate 115 mL/min (>60); Est Glom Filt Rate - Afr Amer 139 mL/min (>60); Estimated Creatinine Clearance 35.52 ml/min; Glucose 71 mg/dL (74-106); Potassium 3.3 mmol/L (3.5-5.1); Sodium Level 139 mmol/L (136-145)
[2021-08-12] MEDS: Potassium Chloride Oral Tablet 20 MEQ 40 MEQ PO (08:31)
[2021-08-12] MEDS: Hydrocortisone 10 MG Tablet 5 MG PO (08:32)
[2021-08-12] MEDS: Pantoprazole Sodium 40 MG Tablet PO (08:32)
[2021-08-12] MEDS: Losartan Potassium 50 MG Tablet PO (08:32)
[2021-08-12] MEDS: 0.9% Normal Saline 1,000 ML 100 ML IV ×2 (08:39→18:05)
[2021-08-12] MEDS: Acetaminophen 325 MG Tablet 650 MG PO (08:40)
--- NOTE | 2021-08-12 09:04 | NURSING ---
Tylenol given for 5 out of 10 pain. 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 Pt states she has been using her I.S.
--- NOTE | 2021-08-12 10:48 | PN.HOSP_ITS ---
Subjective Subjective Patient seen and examined. She still complains of abdominal pain. She denies fever, nausea or vomiting. She has started having some bowel movement in the colostomy bag. She has remained hemodynamically stable. Review of systems is otherwise negative. Objective Data Objective Data Vital Signs: Vital Signs Temp Pulse Resp BP Pulse Ox 98.5 F 83 18 154/67 H 93 08/12/21 08:34 08/12/21 08:34 08/12/21 08:34 08/12/21 08:34 08/12/21 09:53 Oxygen Flow Rate (L/min) 1 Oxygen Delivery Method Room Air Weight: 157 lb 0.987 oz Body Mass Index (BMI) 26.9 Intake & Output: Intake and Output for Last 24 Hours 08/10/21 08/11/21 08/12/21 23:59 23:59 23:59 Intake Total 3040 / 3040 3291.66 / 3291.66 950 / 950 Output Total 650 / 650 100 / 100 Balance 2390 / 2390 3191.66 / 3191.66 950 / 950 Lab / Micro Data Result Diagrams: 08/12/21 06:06 08/12/21 06:06 Labs: Laboratory Results - last 24 hr 08/12/21 06:06: WBC 9.0, RBC 3.36 L, Hgb 8.3 L, Hct 26.3 L, MCV 78.3 L, MCH 24.7 L, MCHC 31.6 L, RDW Std Deviation 49.1 H, RDW Coeff of Tom 17.2 H, Plt Count 293, MPV 10.0, Immature Gran % (Auto) 0.700, Neut % (Auto) 80.0 H, Lymph % (Auto) 7.7 L, [place] % (Auto) 7.4, Eos % (Auto) 4.0, Baso % (Auto) 0.2, Absolute Neuts (auto) 7.2, Absolute Lymphs (auto) 0.69 L, Nucleated RBC % 0 08/12/21 06:06: Sodium 139, Potassium 3.3 L, Chloride 108 H, Carbon Dioxide 24.0, Anion Gap 7, BUN 6 L, Creatinine 0.54 L, Estim Creat Clear Calc 35.52, Est GFR (MDRD) Af Amer 139, Est GFR (MDRD) Non-Af 115, BUN/Creatinine Ratio 11.2, Glucose 71 L, Calcium 7.9 L Physical Exam Const alert, oriented x3 and no apparent distress Exam Limitations: no limitations HEENT head/scalp atraumatic, moist oral mucous membranes and oropharynx normal Head and Scalp: normocephalic Eyes PERRL, EOMs intact bilaterally and conjunctivae normal Neck no lymphadenopathy Resp normal respiratory effort, no retractions, no use of accessory muscles and clear to auscultation bilaterally Cardio regular rate, regular rhythm, S1 normal heart sound, S2 normal heart sound and no murmurs GI GI Narrative: abdomen soft, mildly tender, has colostomy with scant stool in the bag. 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 * decompressive colonoscopy was unsuccessful as she had a sigmoid mass causing a stricture. * she had an emergent exploratory laparotomy with sigmoid colectomy and end colostomy. Today is POD 3. * general surgery on board. * on IV pain meds. * oncology on board. Pathology report pending * diet to be advanced as per general surgery #CAD s/p CABG x3, aspirin on hold. On statin and losartan which also on hold. #Hypertension: On IV hydralazine as needed. Home medication held on account of patient being n.p.o. #Hyperlipidemia: On statin. #History of carotid disease: On aspirin. #Hypothyroidism: On Synthroid #History of colon cancer * S/p partial colectomy in March 2021 at [facility]. now had a synchronous lesion resulting in the sigmoidectomy as noted above. * today is POD 3. * On Keytruda on outpatient basis. * laparotomy findings as above. Oncology on board. Pathology report pending to determine further treatment. * #History of TIA: On aspirin and statin as well as BP meds which are on hold as patient is n.p.o. #Anxiety: On Ativan as needed #GERD: On famotidine DVT prophylaxis: heparin Charges/Coding Visit Charges Inpatient E&M: 66488 Subs Hosp L2
--- NOTE | 2021-08-12 10:48 | PCM.PN.SRG ---
Subjective Subjective has complaint of intermittent lower abdominal pain, but feels that this is gas pains, when (passing gas) gas in bag - felt better patient does state that she does feel hungry minimal incisional pain Objective Data Objective Data Vital Signs: Vital Signs Temp Pulse Resp BP Pulse Ox 98.5 F 83 18 154/67 H 93 08/12/21 08:34 08/12/21 08:34 08/12/21 08:34 08/12/21 08:34 08/12/21 09:53 Oxygen Flow Rate (L/min) 1 Oxygen Delivery Method Room Air Weight: 71.242 kg Body Mass Index (BMI) 26.9 Intake & Output: Intake and Output for Last 24 Hours 08/10/21 08/11/21 08/12/21 23:59 23:59 23:59 Intake Total 3040 / 3040 3291.66 / 3291.66 950 / 950 Output Total 650 / 650 100 / 100 Balance 2390 / 2390 3191.66 / 3191.66 950 / 950 Lab / Micro Data Result Diagrams: 08/12/21 06:06 08/12/21 06:06 Labs: Laboratory Results - last 24 hr 08/12/21 06:06: WBC 9.0, RBC 3.36 L, Hgb 8.3 L, Hct 26.3 L, MCV 78.3 L, MCH 24.7 L, MCHC 31.6 L, RDW Std Deviation 49.1 H, RDW Coeff of Tom 17.2 H, Plt Count 293, MPV 10.0, Immature Gran % (Auto) 0.700, Neut % (Auto) 80.0 H, Lymph % (Auto) 7.7 L, [place] % (Auto) 7.4, Eos % (Auto) 4.0, Baso % (Auto) 0.2, Absolute Neuts (auto) 7.2, Absolute Lymphs (auto) 0.69 L, Nucleated RBC % 0 08/12/21 06:06: Sodium 139, Potassium 3.3 L, Chloride 108 H, Carbon Dioxide 24.0, Anion Gap 7, BUN 6 L, Creatinine 0.54 L, Estim Creat Clear Calc 35.52, Est GFR (MDRD) Af Amer 139, Est GFR (MDRD) Non-Af 115, BUN/Creatinine Ratio 11.2, Glucose 71 L, Calcium 7.9 L Physical Exam Narrative Patient looks overall well Const alert and oriented x3 General Appearance: cooperative Resp normal respiratory effort GI GI Narrative: Abdomen is soft, appropriate incisional tenderness incision is clean and dry Stoma has healthy appearing mucosa and functioning with air/stool in bag Assessment & Plan Assessment/Plan (1) Status post abdominal surgery, follow-up exam: PLAN: patient is recovering well from abdominal surgery the stoma is healthy appearing and functioning well will advance diet slowly
[2021-08-12] MEDS: traMADol 50 MG Tablet PO ×2 (12:22→20:25)
--- NOTE | 2021-08-12 14:19 | NURSING ---
Pt walking in ann. Third time today thus far. Report given to Liam WADDELL at this time
[2021-08-12] MEDS: Atorvastatin Calcium 40 MG Tablet PO (20:25)
[2021-08-13] VITALS (10 sets, daily range): BP systolic 139–159; BP diastolic 69–96; PULSE 74–96; RESP 16–18; TEMP 36.6–37.3; O2SAT 91–95
[2021-08-13] MEDS: Ondansetron 4 MG/2 ML Vial IV (01:37)
[2021-08-13] MEDS: Acetaminophen 325 MG Tablet 650 MG PO ×2 (02:47→09:58)
[2021-08-13] MEDS: traMADol 50 MG Tablet PO ×3 (02:47→19:26)
[2021-08-13] MEDS: 0.9% Normal Saline 1,000 ML 100 ML IV ×3 (03:11→23:39)
[2021-08-13] MEDS: Heparin Injection (Vial) 5,000 UNIT/ML VIAL 5000 UNIT SC ×3 (06:46→20:26)
[2021-08-13 06:56] LABS: Absolute Lymphocyte Count 0.62 X10^3/uL (0.83-4.51); Basophil# 0.02 X10^3/uL; Basophil% 0.2 % (0-1); Eosinophil# 0.19 X10^3/uL; Eosinophils% 2.2 % (0-5); Hematocrit 30.2 % (37-47); Hemoglobin 9.2 g/dL (12.0-15.0); Lymphocyte # 0.62 X10^3/ul (0.83-4.51); Lymphocyte % 7.1 % (19-41); Mean Corp Hgb Conc 30.5 g/dL (32-36); Mean Corpuscular Volume 78.9 fL (81-99); Mean Platelet Vol. 10.4 fl (6.2-12.0); Monocyte# 0.76 X10^3/uL; Monocyte% 8.7 % (0-10); NRBC Flagged by Analyzer 0 % (0-5); Neutrophil # 7.02 X10^3/uL (2.7-7.7); Neutrophil % 80.8 % (47-70); Platelet Count 392 K/mm3 (150-450); RBC Distribution Width CV 17.1 % (11.6-14.6); RBC Distribution Width SD 48.8 fl (35.1-43.9); Red Blood Count 3.83 M/mm3 (4.2-5.4); White Blood Count 8.7 K/mm3 (4.4-11.0)
[2021-08-13 07:17] LABS: Anion Gap 7 (5-15); BUN 6 mg/dL (7-18); BUN/Creat Ratio 11.3 RATIO (10-20); Calcium,Total 7.7 mg/dL (8.5-10.1); Chloride 108 mmol/L (98-107); Creatinine, Serum 0.53 mg/dL (0.55-1.02); EST Glomerular Filtration Rate 117 mL/min (>60); Est Glom Filt Rate - Afr Amer 141 mL/min (>60); Estimated Creatinine Clearance 35.52 ml/min; Glucose 103 mg/dL (74-106); Potassium 3.6 mmol/L (3.5-5.1); Sodium Level 138 mmol/L (136-145)
--- NOTE | 2021-08-13 08:58 | PN.SURG_ITS ---
Subjective Subjective I started patient on liquids yesterday and documented no carbonated beverages but there was an almost empty can of soda by her bedsids patient also notes abdominal pain Objective Data Objective Data Vital Signs: Vital Signs Temp Pulse Resp BP Pulse Ox 99.1 F 84 18 159/78 H 91 08/13/21 02:36 08/13/21 03:57 08/13/21 02:36 08/13/21 02:36 08/13/21 08:08 Oxygen Flow Rate (L/min) 1 Oxygen Delivery Method Room Air Weight: 71.242 kg Body Mass Index (BMI) 26.9 Intake & Output: Intake and Output for Last 24 Hours 08/11/21 08/12/21 08/13/21 23:59 23:59 22:59 Intake Total 3291.66 / 3291.66 2093.33 / 2333.33 1340 / 1340 Output Total 100 / 100 750 / 1110 468 / 468 Balance 3191.66 / 3191.66 1343.33 / 1223.33 872 / 872 Lab / Micro Data Result Diagrams: 08/13/21 06:46 08/13/21 06:46 Labs: Laboratory Results - last 24 hr 08/09/21 17:07: Crossmatch See Detail 08/13/21 06:46: WBC 8.7, RBC 3.83 L, Hgb 9.2 L, Hct 30.2 L, MCV 78.9 L, MCH 24.0 L, MCHC 30.5 L, RDW Std Deviation 48.8 H, RDW Coeff of Tom 17.1 H, Plt Count 392, MPV 10.4, Immature Gran % (Auto) 1.000 H, Neut % (Auto) 80.8 H, Lymph % (Auto) 7.1 L, [place] % (Auto) 8.7, Eos % (Auto) 2.2, Baso % (Auto) 0.2, Absolute Neuts (auto) 7.0, Absolute Lymphs (auto) 0.62 L, Nucleated RBC % 0 08/13/21 06:46: Sodium 138, Potassium 3.6, Chloride 108 H, Carbon Dioxide 23.0, Anion Gap 7, BUN 6 L, Creatinine 0.53 L, Estim Creat Clear Calc 35.52, Est GFR (MDRD) Af Amer 141, Est GFR (MDRD) Non-Af 117, BUN/Creatinine Ratio 11.3, Glucose 103, Calcium 7.7 L Physical Exam Const alert and oriented x3 General Appearance: cooperative Resp normal respiratory effort GI GI Narrative: abdomen - more distended than yesterday stoma is healthy appearing with stool output but no gas noted in the bag and patient does not recall if gas was in bag Assessment & Plan Assessment/Plan (1) Status post abdominal surgery, follow-up exam: PLAN: will make NPO with sips of water with po meds only encourage ambulation will increase pain medications, but cautioned patient that this may inhibit bowel function
[2021-08-13] MEDS: Hydrocortisone 10 MG Tablet 5 MG PO (09:21)
[2021-08-13] MEDS: Pantoprazole Sodium 40 MG Tablet PO (09:22)
[2021-08-13] MEDS: Losartan Potassium 50 MG Tablet PO (09:22)
[2021-08-13 09:31] LABS: Bedside Glucose 116 mg/dL (70-110)
--- NOTE | 2021-08-13 10:32 | PN.HOSP_ITS ---
Subjective Subjective Patient seen and examined. She says she does feel a bit better today. Her pain is getting better controlled. She is tolerating a clear liquid diet. Review of systems is otherwise negative. She has remained hemodynamically stable. She is having scant bowel movement in her colostomy bag. Objective Data Objective Data Vital Signs: Vital Signs Temp Pulse Resp BP Pulse Ox 97.8 F 79 18 139/69 H 94 08/13/21 09:15 08/13/21 09:15 08/13/21 09:15 08/13/21 09:15 08/13/21 09:15 Oxygen Flow Rate (L/min) 1 Oxygen Delivery Method Room Air Weight: 157 lb 0.987 oz Body Mass Index (BMI) 26.9 Intake & Output: Intake and Output for Last 24 Hours 08/11/21 08/12/21 08/13/21 23:59 23:59 22:59 Intake Total 3291.66 / 3291.66 2093.33 / 2333.33 1340 / 1340 Output Total 100 / 100 750 / 1110 468 / 468 Balance 3191.66 / 3191.66 1343.33 / 1223.33 872 / 872 Lab / Micro Data Result Diagrams: 08/13/21 06:46 08/13/21 06:46 Labs: Laboratory Results - last 24 hr 08/09/21 17:07: Crossmatch See Detail 08/13/21 06:46: WBC 8.7, RBC 3.83 L, Hgb 9.2 L, Hct 30.2 L, MCV 78.9 L, MCH 24.0 L, MCHC 30.5 L, RDW Std Deviation 48.8 H, RDW Coeff of Tom 17.1 H, Plt Count 392, MPV 10.4, Immature Gran % (Auto) 1.000 H, Neut % (Auto) 80.8 H, Lymph % (Auto) 7.1 L, [place] % (Auto) 8.7, Eos % (Auto) 2.2, Baso % (Auto) 0.2, Absolute Neuts (auto) 7.0, Absolute Lymphs (auto) 0.62 L, Nucleated RBC % 0 08/13/21 06:46: Sodium 138, Potassium 3.6, Chloride 108 H, Carbon Dioxide 23.0, Anion Gap 7, BUN 6 L, Creatinine 0.53 L, Estim Creat Clear Calc 35.52, Est GFR (MDRD) Af Amer 141, Est GFR (MDRD) Non-Af 117, BUN/Creatinine Ratio 11.3, Gluco se 103, Calcium 7.7 L 08/13/21 09:21: POC Glucose 116 H Physical Exam Const alert, oriented x3 and no apparent distress Exam Limitations: no limitations HEENT head/scalp atraumatic, moist oral mucous membranes and oropharynx normal Head and Scalp: normocephalic Eyes PERRL, EOMs intact bilaterally and conjunctivae normal Neck no lymphadenopathy Resp normal respiratory effort, no retractions, no use of accessory muscles and clear to auscultation bilaterally Cardio regular rate, regular rhythm, S1 normal heart sound, S2 normal heart sound and no murmurs GI GI Narrative: abdomen soft, mildly tender, moderately distended, no guarding or rebound tenderness. has colostomy with scant stool in the bag. 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 * decompressive colonoscopy was unsuccessful as she had a sigmoid mass causing a stricture. * she had an emergent exploratory laparotomy with sigmoid colectomy and end colostomy on 08/09/2021. Today is POD 4. * general surgery on board. * on IV pain meds. * oncology on board. Pathology report pending * diet to be advanced as per general surgery #CAD s/p CABG x3, aspirin on hold. On statin and losartan which also on hold. #Hypertension: On IV hydralazine as needed. Home medication held on account of patient being n.p.o. #Hyperlipidemia: On statin. #History of carotid disease: On aspirin. #Hypothyroidism: On Synthroid #History of colon cancer * S/p partial colectomy in March 2021 at [facility]. now had a synchronous lesion resulting in the sigmoidectomy as noted above. * today is POD 4. * On Keytruda on outpatient basis. * laparotomy findings as above. Oncology on board. Pathology report pending to determine further treatment. * #History of TIA: On aspirin and statin as well as BP meds which are on hold as patient is n.p.o. #Anxiety: On Ativan as needed #GERD: On famotidine DVT prophylaxis: heparin Charges/Coding Visit Charges Inpatient E&M: 90528 Subs Hosp L2
--- NOTE | 2021-08-13 19:37 | NURSING ---
reviewed documentation by Ej Hernandez, student RN
[2021-08-13] MEDS: Atorvastatin Calcium 40 MG Tablet PO (20:26)
[2021-08-13] MEDS: Morphine 2 MG/ML Syringe IV (23:36)
[2021-08-13] MEDS: 0.9% Saline Lock 10 ML Syringe IV (23:37)
[2021-08-14] VITALS (10 sets, daily range): BP systolic 142–169; BP diastolic 62–79; PULSE 75–102; RESP 16–18; TEMP 36.8–36.9; O2SAT 94–96
[2021-08-14] MEDS: hydrALAZINE 20 MG/ML Vial 10 MG IV (02:34)
[2021-08-14] MEDS: 0.9% Saline Lock 10 ML Syringe IV (02:35)
[2021-08-14] MEDS: Levothyroxine 75 MCG Tablet PO (06:06)
[2021-08-14] MEDS: Heparin Injection (Vial) 5,000 UNIT/ML VIAL 5000 UNIT SC ×3 (06:06→22:41)
[2021-08-14 07:06] LABS: Absolute Lymphocyte Count 0.82 X10^3/uL (0.83-4.51); Basophil# 0.03 X10^3/uL; Basophil% 0.3 % (0-1); Eosinophil# 0.48 X10^3/uL; Eosinophils% 5.1 % (0-5); Hemoglobin 9.8 g/dL (12.0-15.0); Lymphocyte # 0.82 X10^3/ul (0.83-4.51); Lymphocyte % 8.8 % (19-41); Mean Corp Hgb Conc 31.6 g/dL (32-36); Mean Corpuscular Hgb 24.6 pg (27.0-32.0); Mean Corpuscular Volume 77.9 fL (81-99); Mean Platelet Vol. 10.2 fl (6.2-12.0); Monocyte# 0.93 X10^3/uL; Monocyte% 9.9 % (0-10); NRBC Flagged by Analyzer 0 % (0-5); Neutrophil # 6.98 X10^3/uL (2.7-7.7); Neutrophil % 74.7 % (47-70); Platelet Count 409 K/mm3 (150-450); RBC Distribution Width CV 17.1 % (11.6-14.6); RBC Distribution Width SD 48.9 fl (35.1-43.9); Red Blood Count 3.98 M/mm3 (4.2-5.4); White Blood Count 9.4 K/mm3 (4.4-11.0)
[2021-08-14 07:38] LABS: Anion Gap 7 (5-15); BUN 5 mg/dL (7-18); BUN/Creat Ratio 9.7 RATIO (10-20); Calcium,Total 8.3 mg/dL (8.5-10.1); Chloride 106 mmol/L (98-107); Creatinine, Serum 0.52 mg/dL (0.55-1.02); EST Glomerular Filtration Rate 120 mL/min (>60); Est Glom Filt Rate - Afr Amer 145 mL/min (>60); Estimated Creatinine Clearance 35.52 ml/min; Glucose 78 mg/dL (74-106); Potassium 3.1 mmol/L (3.5-5.1); Sodium Level 137 mmol/L (136-145)
--- NOTE | 2021-08-14 07:54 | RAD_ITS ---
STUDY: X-RAY - ABDOMEN/PELVIS REASON FOR EXAM: Female, 86 years old. Ileus TECHNIQUE: Single AP view of the abdomen / pelvis. COMPARISON: Comparison is made with prior study of 08/09/2021. FINDINGS: Surgical clips are seen in the mid abdomen. There is evidence of a gaseous distention of the small bowel. There is decompression of the colon. Early small bowel obstruction versus ileus should be ruled out. Radiographic follow-up is recommended. The visualized liver, spleen and kidneys are grossly normal in size and morphology. Normal soft tissue structures. There are diffuse degenerative changes of the visualized lumbar spine. RAD/Abdomen Single View (Portable) IMPRESSION: Gaseous dilatation of the small bowel with the decompressed colon. This may represent either an early small bowel obstruction versus ileus. Radiographic follow-up is recommended. Electronically Signed: Rodríguez Bauman MD at 8:15 EST , Service support ,
[2021-08-14] MEDS: Losartan Potassium 50 MG Tablet PO (09:22)
[2021-08-14] MEDS: Pantoprazole Sodium 40 MG Tablet PO (09:22)
--- NOTE | 2021-08-14 09:26 | NURSING ---
Patient ambulated in halls with this RN.
--- NOTE | 2021-08-14 10:19 | WOUNDNOTE ---
wound/stoma photo: abdomen
--- NOTE | 2021-08-14 10:28 | WOUNDNOTE ---
Ostomy appliance removed. approx 30 cc's unformed stool emptied from the appliance. stoma is pink, moist, and slightly edematous. abdomen remains distended and tender. midline surgical incision is well approximated with jefe in place. very minimal serous drainage noted on the old dressing. no redness noted. cleansed incision and pat dry. applied a new dry dressing and secured with small amount of tape. cleansed the peristomal skin with warm water. pat dry. stoma measures approx 1 3/4 and sits above skin level. applied a new 2 piece flat [place] appliance with a small amount of stoma paste. patient observed the appliance change. questions answered. pt tolerated well. see wound/stoma photo.
--- NOTE | 2021-08-14 11:38 | PCM.PN.HOSP ---
Subjective Subjective Follow-up on post-op medical management: Patient seen and examined. Patient is not having any output in her colostomy bag. KUB this morning showing gaseous dilatation of the small bowel. Patient denied any nausea or vomiting. Objective Data Objective Data Vital Signs: Vital Signs Temp Pulse Resp BP Pulse Ox 98.3 F 88 16 142/62 H 96 08/14/21 09:00 08/14/21 09:00 08/14/21 09:00 08/14/21 09:00 08/14/21 09:00 Oxygen Flow Rate (L/min) 1 Oxygen Delivery Method Room Air Weight: 71.242 kg Body Mass Index (BMI) 26.9 Intake & Output: Intake and Output for Last 24 Hours 08/13/21 08/13/21 08/14/21 00:59 23:59 23:59 Intake Total 935 / 935 Output Total 130 / 130 Balance 805 / 805 Lab / Micro Data Result Diagrams: 08/14/21 06:15 08/14/21 06:15 Labs: Laboratory Results - last 24 hr 08/14/21 06:15: WBC 9.4, RBC 3.98 L, Hgb 9.8 L, Hct 31.0 L, MCV 77.9 L, MCH 24.6 L, MCHC 31.6 L, RDW Std Deviation 48.9 H, RDW Coeff of Tom 17.1 H, Plt Count 409, MPV 10.2, Immature Gran % (Auto) 1.200 H, Neut % (Auto) 74.7 H, Lymph % (Auto) 8.8 L, [place] % (Auto) 9.9, Eos % (Auto) 5.1 H, Baso % (Auto) 0.3, Absolute Neuts (auto) 7.0, Absolute Lymphs (auto) 0.82 L, Nucleated RBC % 0 08/14/21 06:15: Sodium 137, Potassium 3.1 L, Chloride 106, Carbon Dioxide 24.0, Anion Gap 7, BUN 5 L, Creatinine 0.52 L, Estim Creat Clear Calc 35.52, Est GFR (MDRD) Af Amer 145, Est GFR (MDRD) Non-Af 120, BUN/Creatinine Ratio 9.7 L, Glucose 78, Calcium 8.3 L Radiography Diagnostic Testing: Radiology Impression KUB X-Ray 08/14/21 07:54 IMPRESSION: Gaseous dilatation of the small bowel with the decompressed colon. This may represent either an early small bowel obstruction versus ileus. Radiographic follow-up is recommended. Electronically Signed: Rodríguez Bauman MD at 8:15 EST , Service support , Physical Exam Narrative Physical exam: General: Alert, Oriented x3, Cooperative, No apparent distress, Well developed HEENT: Atraumatic Oral: Moist Mucosa Neck: Supple Lungs: Clear to auscultation Cardiovascular: HS I+II, regular, no murmurs Abdomen: Bowel Sounds hypoactive, Soft, upper quadrant colostomy, pink Extremities: No edema Assessment & Plan Assessment/Plan (1) Abdominal pain: QUALIFIERS: Abdominal location: generalized Qualified Code(s): R10.84 - Generalized abdominal pain (2) Constipation, acute: PLAN: 1. POD# 5 status post emergent exploratory laparotomy with sigmoid colectomy and end colectomy on 08/09/21 Patient presented with intestinal obstruction due to colon cancer with carcinomatosis History of colon CA status post partial colectomy in March 2021 Status post unsuccessful therapeutic enema, decompressive colonoscopy Recent KUB shows probable small bowel obstruction General surgery following; CT abd/pelvis ordered Continue per general surgery recommendations Oncology following 2. Hypokalemia, replace, check magnesium and phosphorus 3. Rest of her chronic medical conditions including CAD status post CABG, hypertension, hyperlipidemia, history of carotid disease, hypothyroidism, TIA, anxiety, GERD -stable 4. DVT prophylaxis?heparin subcu Charges/Coding Visit Charges Inpatient E&M: 44646 Subs Hosp L2
--- NOTE | 2021-08-14 13:03 | CT_ITS ---
STUDY: CT ABDOMEN AND PELVIS WITH CONTRAST REASON FOR EXAM: Female, 86 years old. postop pain and distention -- PO and IV RADIATION DOSAGE (If Supplied By Facility): CTDIvol = ( 12.95 ) mGy, DLP = ( 1003.44 ) mGycm TECHNIQUE: Transaxial images were obtained from the dome of the diaphragm to the symphysis pubis without oral contrast. Oral and amp; IV Gastrografin and amp; 100mL Isovue-300 was administered. Sagittal and coronal images were reconstructed. Individualized dose optimization techniques were used for this CT. COMPARISON: 08/07/2021 FINDINGS: Tiny right pleural effusion with right lower lobe atelectasis. The visualized portions of the heart are within normal limits. Small amount of ascites including fluid cooling in the pelvis. Skin jefe in the midline consistent with recent abdominal surgery. Normal liver. There is non-visualization of the gallbladder, which may be secondary to either contraction or a prior cholecystectomy. Normal spleen. Normal pancreas. Normal bilateral adrenal glands. Normal right kidney. Normal left kidney. Normal visualized stomach. Some moderately dilated fluid-filled loops of small bowel but with decompressed ileum likely consistent with an adynamic ileus. Interval resection of the sigmoid colon with creation of a left lower quadrant colostomy. There is non-visualization of the appendix. There is diffuse atherosclerotic calcification of the abdominal aorta, without a demonstrated aneurysm. Normal inferior vena cava. Normal retroperitoneum. Normal urinary bladder. Normal abdominal wall. Normal osseous structures. CT/Abdomen/Pelvis WITH Contrast IMPRESSION: Status post recent resection of the sigmoid colon with creation of a left lower quadrant colostomy with a probable adynamic ileus, small amount of ascites, and tiny right pleural effusion with right lower lobe atelectasis. Electronically Signed: Aiden Sousa MD at 16:54 EST Tel , Service support ,
--- NOTE | 2021-08-14 14:26 | NURSING ---
Several attempts at obtaining IV access. [employer] called and will send up someone to try to obtain access.
--- NOTE | 2021-08-14 14:27 | PCM.PN.SRG ---
Subjective Subjective Patient is complaining of mostly right lower quadrant pain. No nausea or vomiting Objective Data Objective Data Vital Signs: Vital Signs Temp Pulse Resp BP Pulse Ox 98.5 F 75 18 154/68 H 96 08/14/21 14:27 08/14/21 14:27 08/14/21 14:27 08/14/21 14:27 08/14/21 14:27 Oxygen Flow Rate (L/min) 1 Oxygen Delivery Method Room Air Weight: 157 lb 0.987 oz Body Mass Index (BMI) 26.9 Intake & Output: Intake and Output for Last 24 Hours 08/13/21 08/13/21 08/14/21 00:59 23:59 23:59 Intake Total 997.5 / 997.5 Output Total 130 / 130 Balance 867.5 / 867.5 Lab / Micro Data Result Diagrams: 08/14/21 06:15 08/14/21 06:15 Labs: Laboratory Results - last 24 hr 08/14/21 06:15: WBC 9.4, RBC 3.98 L, Hgb 9.8 L, Hct 31.0 L, MCV 77.9 L, MCH 24.6 L, MCHC 31.6 L, RDW Std Deviation 48.9 H, RDW Coeff of Tom 17.1 H, Plt Count 409, MPV 10.2, Immature Gran % (Auto) 1.200 H, Neut % (Auto) 74.7 H, Lymph % (Auto) 8.8 L, [place] % (Auto) 9.9, Eos % (Auto) 5.1 H, Baso % (Auto) 0.3, Absolute Neuts (auto) 7.0, Absolute Lymphs (auto) 0.82 L, Nucleated RBC % 0 08/14/21 06:15: Sodium 137, Potassium 3.1 L, Chloride 106, Carbon Dioxide 24.0, Anion Gap 7, BUN 5 L, Creatinine 0.52 L, Estim Creat Clear Calc 35.52, Est GFR (MDRD) Af Amer 145, Est GFR (MDRD) Non-Af 120, BUN/Creatinine Ratio 9.7 L, Glucose 78, Calcium 8.3 L Radiography Diagnostic Testing: Radiology Impression KUB X-Ray 08/14/21 07:54 IMPRESSION: Gaseous dilatation of the small bowel with the decompressed colon. This may represent either an early small bowel obstruction versus ileus. Radiographic follow-up is recommended. Electronically Signed: Rodríguez Bauman MD at 8:15 EST , Service support , Physical Exam Const no apparent distress Resp normal respiratory effort GI Inspection: abdominal distention Palpation: tender RLQ Assessment & Plan Assessment/Plan (1) Carcinomatosis: (2) Abdominal pain: QUALIFIERS: Abdominal location: generalized Qualified Code(s): R10.84 - Generalized abdominal pain (3) Bowel obstruction: QUALIFIERS: Intestinal obstruction type: unspecified Intestinal obstruction extent: unspecified extent Qualified Code(s): K56.609 - Unspecified intestinal obstruction, unspecified as to partial versus complete obstruction PLAN: Patient reports ongoing abdominal pain and there is no flatus in the bag. I ordered an x-ray of the abdomen this morning and it did not show any colonic distention only small bowel distention. I will try to order CT with p.o. and IV contrast today. Nehemias Pan MD Pager: [facility] [address] [place] [address], [address] [place] [address] Office:
[2021-08-14] MEDS: Hydrocortisone 10 MG Tablet 5 MG PO (17:01)
[2021-08-14] MEDS: Potassium Chloride 10mEq/100mL 10 MEQ/100 ML IV.SOLN. 100 MEQ IV BOLUS (17:01)
[2021-08-14] MEDS: 0.9% Normal Saline 1,000 ML 50 ML IV (17:01)
[2021-08-14 17:11] LABS: Magnesium 1.6 mg/dL (1.6-2.6)
[2021-08-14 17:25] LABS: Phosphorus 2.6 mg/dL (2.5-4.9)
[2021-08-14] MEDS: Potassium Chloride 10mEq/100mL 10 MEQ/100 ML IV.SOLN. 50 MEQ IV BOLUS ×3 (18:55→23:32)
[2021-08-14] MEDS: Atorvastatin Calcium 40 MG Tablet PO (22:41)
[2021-08-14] MEDS: Acetaminophen 325 MG Tablet 650 MG PO (22:48)
[2021-08-14] MEDS: MELATONIN 3 MG TABLET PO (23:32)
[2021-08-15] VITALS (11 sets, daily range): BP systolic 131–171; BP diastolic 59–79; PULSE 77–110; RESP 16–18; TEMP 36.6–37.2; O2SAT 94–96
[2021-08-15] MEDS: Levothyroxine 75 MCG Tablet PO (05:24)
[2021-08-15] MEDS: Heparin Injection (Vial) 5,000 UNIT/ML VIAL 5000 UNIT SC ×3 (05:24→21:21)
[2021-08-15] MEDS: 0.9% Saline Lock 10 ML Syringe IV ×2 (05:29→15:54)
[2021-08-15] MEDS: hydrALAZINE 20 MG/ML Vial 10 MG IV (05:29)
[2021-08-15] MEDS: 0.9% Normal Saline 1,000 ML 75 ML IV (05:35)
[2021-08-15] MEDS: traMADol 50 MG Tablet PO (05:37)
--- NOTE | 2021-08-15 07:49 | RAD_ITS ---
STUDY: X-RAY - ABDOMEN/PELVIS REASON FOR EXAM: Female, 86 years old. after ngt insertion TECHNIQUE: Single AP view of the abdomen / pelvis. COMPARISON: 08/14/2021 FINDINGS: Nasogastric tube with the tip in the left upper quadrant likely in the body of the stomach. Skin jefe in midline consistent with recent abdominal surgery. No change of multiple loops of mildly dilated air-filled small bowel likely consistent with an adynamic ileus. The visualized liver, spleen and kidneys are grossly normal in size and morphology. Normal soft tissue structures. Normal visualized osseous structures. RAD/Abdomen Single View IMPRESSION: 1. Interval placement of nasogastric tube with the tip in the left upper quadrant likely in the body the stomach. 2. No change in postoperative ileus. Electronically Signed: Aiden Sousa MD at 8:29 EST Tel , Service support ,
[2021-08-15 07:58] LABS: Absolute Lymphocyte Count 1.52 X10^3/uL (0.83-4.51); Absolute Neutrophil Count 9.9 X10^3/uL (2.0-7.7); Basophil# 0.09 X10^3/uL; Basophil% 0.6 % (0-1); Eosinophil# 0.69 X10^3/uL; Eosinophils% 4.9 % (0-5); Hemoglobin 10.4 g/dL (12.0-15.0); Lymphocyte # 1.52 X10^3/ul (0.83-4.51); Lymphocyte % 10.8 % (19-41); Mean Corp Hgb Conc 31.5 g/dL (32-36); Mean Corpuscular Volume 76.2 fL (81-99); Monocyte# 1.36 X10^3/uL; Monocyte% 9.7 % (0-10); NRBC Flagged by Analyzer 0 % (0-5); Neutrophil # 9.88 X10^3/uL (2.7-7.7); Neutrophil % 70.6 % (47-70); Platelet Count 577 K/mm3 (150-450); RBC Distribution Width CV 17.1 % (11.6-14.6); RBC Distribution Width SD 47.4 fl (35.1-43.9); Red Blood Count 4.33 M/mm3 (4.2-5.4)
[2021-08-15 08:28] LABS: ALB/GLOB Ratio 0.6 RATIO (0.9-2.4); AST(SGOT) 17 U/L (15-37); Alanine Aminotransfer ALT/SGPT 16 U/L (13-56); Albumin, Serum 2.3 g/dL (3.2-5.0); Alkaline Phosphatase 57 U/L (45-117); Anion Gap 13 (5-15); BUN 3 mg/dL (7-18); BUN/Creat Ratio 5.1 RATIO (10-20); Calcium,Total 8.7 mg/dL (8.5-10.1); Chloride 106 mmol/L (98-107); Creatinine, Serum 0.59 mg/dL (0.55-1.02); EST Glomerular Filtration Rate 103 mL/min (>60); Est Glom Filt Rate - Afr Amer 125 mL/min (>60); Estimated Creatinine Clearance 35.52 ml/min; Globulin 4.1 g/dL (2.2-4.2); Glucose 83 mg/dL (74-106); Magnesium 1.8 mg/dL (1.6-2.6); Potassium 3.3 mmol/L (3.5-5.1); Protein, Total 6.4 g/dL (6.4-8.2); Sodium Level 137 mmol/L (136-145)
--- NOTE | 2021-08-15 09:03 | PCM.PN.HOSP ---
Subjective Subjective Follow-up on post-op medical management: Objective Data Objective Data Vital Signs: Vital Signs Temp Pulse Resp BP Pulse Ox 98.9 F 96 16 168/63 H 95 08/15/21 05:00 08/15/21 06:39 08/15/21 05:00 08/15/21 06:39 08/15/21 05:00 Oxygen Flow Rate (L/min) 1 Oxygen Delivery Method Room Air Weight: 71.242 kg Body Mass Index (BMI) 26.9 Intake & Output: Intake and Output for Last 24 Hours 08/13/21 08/14/21 08/15/21 23:59 23:59 23:59 Intake Total 1356.67 / 1356.67 1028.75 / 1028.75 Output Total 790 / 1340 1350 / 1350 Balance 566.67 / 16.67 -321.25 / -321.25 Lab / Micro Data Result Diagrams: 08/15/21 07:44 08/15/21 07:44 Labs: Laboratory Results - last 24 hr 08/14/21 06:15: Magnesium 1.6 08/14/21 06:15: Phosphorus 2.6 08/15/21 07:44: WBC 14.0 H, RBC 4.33, Hgb 10.4 L, Hct 33.0 L, MCV 76.2 L, MCH 24.0 L, MCHC 31.5 L, RDW Std Deviation 47.4 H, RDW Coeff of Tom 17.1 H, Plt Count 577 H, MPV 10.0, Immature Gran % (Auto) 3.400 H, Neut % (Auto) 70.6 H, Lymph % (Auto) 10.8 L, [place] % (Auto) 9.7, Eos % (Auto) 4.9, Baso % (Auto) 0.6, Absolute Neuts (auto) 9.9 H, Absolute Lymphs (auto) 1.52, Nucleated RBC % 0 08/15/21 07:44: Sodium 137, Potassium 3.3 L, Chloride 106, Carbon Dioxide 18.0 L, Anion Gap 13, BUN 3 L, Creatinine 0.59, Estim Creat Clear Calc 35.52, Est GFR (MDRD) Af Amer 125, Est GFR (MDRD) Non-Af 103, BUN/Creatinine Ratio 5.1 L, Glucose 83, Calcium 8.7, Magnesium 1.8, Total Bilirubin 0.40, AST 17, ALT 16, Alkaline Phosphatase 57, Total Protein 6.4, Albumin 2.3 L, Globulin 4.1, Albumin/Globulin Ratio 0.6 L Radiography Diagnostic Testing: Radiology Impression Abdomen/Pelvis CT 08/14/21 13:03 IMPRESSION: Status post recent resection of the sigmoid colon with creation of a left lower quadrant colostomy with a probable adynamic ileus, small amount of ascites, and tiny right pleural effusion with right lower lobe atelectasis. Electronically Signed: Aiden Sousa MD at 16:54 EST Tel , Service support , KUB X-Ray 08/15/21 07:49 IMPRESSION: 1. Interval placement of nasogastric tube with the tip in the left upper quadrant likely in the body the stomach. 2. No change in postoperative ileus. Electronically Signed: Aiden Sousa MD at 8:29 EST Tel , Service support , Physical Exam Narrative Physical exam: General: Alert, Oriented x3, Cooperative, No apparent distress, Well developed HEENT: Atraumatic Oral: Moist Mucosa Neck: Supple Lungs: Clear to auscultation Cardiovascular: HS I+II, regular, no murmurs Abdomen: Bowel Sounds hypoactive, Soft, upper quadrant colostomy, pink Extremities: No edema Assessment & Plan Assessment/Plan (1) Abdominal pain: QUALIFIERS: Abdominal location: generalized Qualified Code(s): R10.84 - Generalized abdominal pain (2) Constipation, acute: PLAN: 1. POD# 6 status post emergent exploratory laparotomy with sigmoid colectomy and end colectomy on 08/09/21 Patient now with ileus, status post NG tube placement Kept n.p.o., continue on IV fluids Patient presented with intestinal obstruction due to colon cancer with carcinomatosis History of colon CA status post partial colectomy in March 2021 Status post unsuccessful therapeutic enema, decompressive colonoscopy Recent KUB shows probable small bowel obstruction General surgery following; CT abd/pelvis ordered Continue per general surgery recommendations Oncology following 2. Hypokalemia/hypomagnesemia, replaced 3. Rest of her chronic medical conditions including CAD status post CABG, hypertension, hyperlipidemia, history of carotid disease, hypothyroidism, TIA, anxiety, GERD -stable 4. DVT prophylaxis?heparin subcu Charges/Coding Visit Charges Inpatient E&M: 74510 Subs Hosp L2
[2021-08-15] MEDS: Magnesium Sulfate 4gm/100mL 4 GM/100 ML IV.SOLN. IV (09:08)
--- NOTE | 2021-08-15 10:16 | CASEMGMT ---
TC to [facility], spoke to Ama to make aware that pt has NG placed and will not be dc'ing this date. Will keep her updated on dc plans.
--- NOTE | 2021-08-15 10:39 | WOUNDNOTE ---
In to assess the ostomy appliance. appliance is intact at this time. emptied for 30 cc's liquid green/brown stool. removed midline abdominal dressing. very scant amount of serous drainage noted. jefe remain intact and incision is well approximated. patient states she feels like she could have a BM. assisted patient to the BSC. no residual stool out. patient urinated. patient became nauseated and had a moderate amount out of NG tube. canister changed. pt assisted back into bed. denies further needs at this time.
--- NOTE | 2021-08-15 15:24 | NURSING ---
Spoke with Stacia in pharmacy and she states there are 60 meq in k-phos bag. The k-phos and mag are compatible to be given together but the k-riders and k-phos should not be given at the same time. She recommends giving the k-phos and mag and then after the k-phos is done the k-riders can be given.
[2021-08-15] MEDS: Morphine 2 MG/ML Syringe IV (15:53)
--- NOTE | 2021-08-15 22:13 | NURSING ---
Pt was walked in the hallway and placed in chair for around an hour. Pt tolerated activity moderately well but felt fatigued after walk.
[2021-08-15] MEDS: Potassium Chloride 10mEq/100mL 10 MEQ/100 ML IV.SOLN. 100 MEQ IV BOLUS (23:17)
[2021-08-16] VITALS (11 sets, daily range): BP systolic 148–178; BP diastolic 56–90; PULSE 68–92; RESP 15–18; TEMP 36.6–37.1; O2SAT 92–97
[2021-08-16] MEDS: Potassium Chloride 10mEq/100mL 10 MEQ/100 ML IV.SOLN. 100 MEQ IV BOLUS ×3 (00:20→02:21)
[2021-08-16] MEDS: 0.9% Normal Saline 1,000 ML 100 ML IV ×2 (03:26→13:39)
[2021-08-16] MEDS: Heparin Injection (Vial) 5,000 UNIT/ML VIAL 5000 UNIT SC ×3 (06:10→21:56)
[2021-08-16 08:00] LABS: Phosphorus 3.1 mg/dL (2.5-4.9)
[2021-08-16 08:01] LABS: ALB/GLOB Ratio 0.6 RATIO (0.9-2.4); AST(SGOT) 17 U/L (15-37); Alanine Aminotransfer ALT/SGPT 15 U/L (13-56); Albumin, Serum 2.1 g/dL (3.2-5.0); Alkaline Phosphatase 50 U/L (45-117); Anion Gap 12 (5-15); BUN 5 mg/dL (7-18); BUN/Creat Ratio 9.4 RATIO (10-20); Chloride 107 mmol/L (98-107); Creatinine, Serum 0.53 mg/dL (0.55-1.02); EST Glomerular Filtration Rate 117 mL/min (>60); Est Glom Filt Rate - Afr Amer 141 mL/min (>60); Estimated Creatinine Clearance 35.52 ml/min; Globulin 3.6 g/dL (2.2-4.2); Glucose 72 mg/dL (74-106); Magnesium 2.1 mg/dL (1.6-2.6); Protein, Total 5.7 g/dL (6.4-8.2); Sodium Level 137 mmol/L (136-145)
[2021-08-16 09:22] LABS: Absolute Lymphocyte Count 0.88 X10^3/uL (0.83-4.51); Absolute Neutrophil Count 7.1 X10^3/uL (2.0-7.7); Basophil# 0.06 X10^3/uL; Basophil% 0.6 % (0-1); Eosinophil# 0.46 X10^3/uL; Eosinophils% 4.6 % (0-5); Hematocrit 29.8 % (37-47); Hemoglobin 9.2 g/dL (12.0-15.0); Lymphocyte # 0.88 X10^3/ul (0.83-4.51); Lymphocyte % 8.9 % (19-41); Mean Corp Hgb Conc 30.9 g/dL (32-36); Mean Corpuscular Volume 77.6 fL (81-99); Mean Platelet Vol. 10.8 fl (6.2-12.0); Monocyte# 0.95 X10^3/uL; Monocyte% 9.6 % (0-10); NRBC Flagged by Analyzer 0 % (0-5); Neutrophil # 7.14 X10^3/uL (2.7-7.7); Neutrophil % 72.2 % (47-70); Platelet Count 476 K/mm3 (150-450); RBC Distribution Width CV 17.7 % (11.6-14.6); RBC Distribution Width SD 49.9 fl (35.1-43.9); Red Blood Count 3.84 M/mm3 (4.2-5.4); White Blood Count 9.9 K/mm3 (4.4-11.0)
[2021-08-16] MEDS: Morphine 2 MG/ML Syringe IV ×4 (10:37→21:51)
--- NOTE | 2021-08-16 11:26 | PN.HOSP_ITS ---
Subjective Subjective Follow-up on post-op medical management: Patient was seen and examined. She still has an NG tube, and has some output from her colostomy. KUB still shows postop ileus. Objective Data Objective Data Vital Signs: Vital Signs Temp Pulse Resp BP Pulse Ox 98.7 F 92 18 161/68 H 94 08/16/21 10:15 08/16/21 10:15 08/16/21 10:15 08/16/21 10:15 08/16/21 10:15 Oxygen Flow Rate (L/min) 1 Oxygen Delivery Method Room Air Weight: 71.242 kg Body Mass Index (BMI) 26.9 Intake & Output: Intake and Output for Last 24 Hours 08/14/21 08/15/21 08/16/21 23:59 23:59 23:59 Intake Total 1356.67 / 1356.67 3333 / 1021.67 / 1021.67 Output Total 790 / 1340 3406 / 3406 450 / 450 Balance 566.67 / 16.67 -1422.6667 / -1422.6667 571.67 / 571.67 Lab / Micro Data Result Diagrams: 08/16/21 06:44 08/16/21 06:44 Labs: Laboratory Results - last 24 hr 08/16/21 06:44: Sodium 137, Potassium 4.0, Chloride 107, Carbon Dioxide 18.0 L, Anion Gap 12, BUN 5 L, Creatinine 0.53 L, Estim Creat Clear Calc 35.52, Est GFR (MDRD) Af Amer 141, Est GFR (MDRD) Non-Af 117, BUN/Creatinine Ratio 9.4 L, Glucose 72 L, Calcium 8.0 L, Magnesium 2.1, Total Bilirubin 0.30, AST 17, ALT 15, Alkaline Phosphatase 50, Total Protein 5.7 L, Albumin 2.1 L, Globulin 3.6, Albumin/Globulin Ratio 0.6 L 08/16/21 06:44: Phosphorus 3.1 08/16/21 06:44: WBC 9.9, RBC 3.84 L, Hgb 9.2 L, Hct 29.8 L, MCV 77.6 L, MCH 24.0 L, MCHC 30.9 L, RDW Std Deviation 49.9 H, RDW Coeff of Tom 17.7 H, Plt Count 476 H, MPV 10.8, Immature Gran % (Auto) 4.100 H, Neut % (Auto) 72.2 H, Lymph % (Auto) 8.9 L, [place] % (Auto) 9.6, Eos % (Auto) 4.6, Baso % (Auto) 0.6, Absolute Neuts (auto) 7.1, Absolute Lymphs (auto) 0.88, Nucleated RBC % 0 Physical Exam Narrative Physical exam: General: Alert, Oriented x3, Cooperative, No apparent distress, Well developed HEENT: Atraumatic Oral: Moist Mucosa Neck: Supple Lungs: Clear to auscultation Cardiovascular: HS I+II, regular, no murmurs Abdomen: Bowel Sounds hypoactive, Soft, upper quadrant colostomy, pink Extremities: No edema Assessment & Plan Assessment/Plan (1) Abdominal pain: QUALIFIERS: Abdominal location: generalized Qualified Code(s): R10.84 - Generalized abdominal pain (2) Constipation, acute: PLAN: 1. POD# 7 status post emergent exploratory laparotomy with sigmoid colectomy and end colectomy on 08/09/21 Ileus persists, status post NG tube placement Kept n.p.o., continue on IV fluids Patient presented with intestinal obstruction due to colon cancer with carcinomatosis History of colon CA status post partial colectomy in March 2021 Status post unsuccessful therapeutic enema, decompressive colonoscopy Recent KUB shows probable small bowel obstruction General surgery following; continue per general surgery recommendations 2. Hypokalemia/hypomagnesemia, replaced 3. Rest of her chronic medical conditions including CAD status post CABG, hypertension, hyperlipidemia, history of carotid disease, hypothyroidism, TIA, anxiety, GERD -stable 4. DVT prophylaxis?heparin subcu Charges/Coding Visit Charges Inpatient E&M: 53880 Subs Hosp L2
--- NOTE | 2021-08-16 12:51 | PN.SURG_ITS ---
Subjective Subjective Patient had a a lot of output from her NG tube. She is complaining of less pain and feels comfortable this morning. Objective Data Objective Data Vital Signs: Vital Signs Temp Pulse Resp BP Pulse Ox 98.7 F 92 18 161/68 H 94 08/16/21 10:15 08/16/21 10:15 08/16/21 10:15 08/16/21 10:15 08/16/21 10:15 Oxygen Flow Rate (L/min) 1 Oxygen Delivery Method Room Air Weight: 157 lb 0.987 oz Body Mass Index (BMI) 26.9 Intake & Output: Intake and Output for Last 24 Hours 08/14/21 08/15/21 08/16/21 23:59 23:59 23:59 Intake Total 1356.67 / 1356.67 3333 / 3333 1061.67 / 1061.67 Output Total 790 / 1340 3406 / 3406 450 / 450 Balance 566.67 / 16.67 -1422.6667 / -1422.6667 611.67 / 611.67 Lab / Micro Data Result Diagrams: 08/16/21 06:44 08/16/21 06:44 Labs: Laboratory Results - last 24 hr 08/16/21 06:44: Sodium 137, Potassium 4.0, Chloride 107, Carbon Dioxide 18.0 L, Anion Gap 12, BUN 5 L, Creatinine 0.53 L, Estim Creat Clear Calc 35.52, Est GFR (MDRD) Af Amer 141, Est GFR (MDRD) Non-Af 117, BUN/Creatinine Ratio 9.4 L, Glucose 72 L, Calcium 8.0 L, Magnesium 2.1, Total Bilirubin 0.30, AST 17, ALT 15, Alkaline Phosphatase 50, Total Protein 5.7 L, Albumin 2.1 L, Globulin 3.6, Albumin/Globulin Ratio 0.6 L 08/16/21 06:44: Phosphorus 3.1 08/16/21 06:44: WBC 9.9, RBC 3.84 L, Hgb 9.2 L, Hct 29.8 L, MCV 77.6 L, MCH 24.0 L, MCHC 30.9 L, RDW Std Deviation 49.9 H, RDW Coeff of Tom 17.7 H, Plt Count 476 H, MPV 10.8, Immature Gran % (Auto) 4.100 H, Neut % (Auto) 72.2 H, Lymph % (Auto) 8.9 L, [place] % (Auto) 9.6, Eos % (Auto) 4.6, Baso % (Auto) 0.6, Absolute Neuts (auto) 7.1, Absolute Lymphs (auto) 0.88, Nucleated RBC % 0 Physical Exam Const no apparent distress Resp normal respiratory effort GI soft to palpation Inspection: abdominal distention Assessment & Plan Assessment/Plan (1) History of colon cancer: (2) Bowel obstruction: QUALIFIERS: Intestinal obstruction type: unspecified Intestinal obstruction extent: unspecified extent Qualified Code(s): K56.609 - Unspecified intestinal obstruction, unspecified as to partial versus complete obstruction PLAN: Patient reports that she is not having any flatus from the colostomy bag which she is feeling much better after having the NG placed. There is 1700 cc of output overnight. I recommend continuing NG tube and observing. Patient is feeling much better and I will continue to observe if there starts to become colostomy output and if the NG output decreases. Electrolytes have been replaced. White count has returned to normal. Nehemias Pan MD Pager: [facility] [address] [place] [address], [address] [place] [address] Office:
--- NOTE | 2021-08-16 20:13 | NURSING ---
encouraged pt to get out of bed and walk in the halls. pt refused.
[2021-08-16] MEDS: 0.9% Saline Lock 10 ML Syringe IV ×2 (21:53→21:54)
[2021-08-16] MEDS: hydrALAZINE 20 MG/ML Vial 10 MG IV (21:54)
[2021-08-17] VITALS (11 sets, daily range): BP systolic 145–174; BP diastolic 50–88; PULSE 80–96; RESP 16–18; TEMP 36.6–37.3; O2SAT 94–98
[2021-08-17] MEDS: 0.9% Normal Saline 1,000 ML 50 ML IV (03:56)
[2021-08-17] MEDS: Heparin Injection (Vial) 5,000 UNIT/ML VIAL 5000 UNIT SC ×3 (05:30→21:55)
--- NOTE | 2021-08-17 06:32 | RAD_ITS ---
STUDY: X-RAY - ABDOMEN/PELVIS REASON FOR EXAM: Female, 86 years old. Ileus TECHNIQUE: Portable, supine, AP abdomen and pelvis radiograph COMPARISON: 08/14/2021, 08/15/2021 FINDINGS: Normal visualized lung bases. No significant change in gaseous bowel distention. Enteric tube remains. There is no demonstrated free abdominal air. The visualized liver, spleen and kidneys are grossly normal in size and morphology. Normal soft tissue structures. Normal visualized osseous structures. RAD/Abdomen Single View (Portable) IMPRESSION: No significant change gaseous bowel dilation. Electronically Signed: Yang Walker MD at 7:05 EST Tel , Service support ,
[2021-08-17 07:01] LABS: Absolute Lymphocyte Count 0.87 X10^3/uL (0.83-4.51); Absolute Neutrophil Count 7.4 X10^3/uL (2.0-7.7); Basophil# 0.05 X10^3/uL; Basophil% 0.5 % (0-1); Eosinophil# 0.51 X10^3/uL; Hematocrit 26.3 % (37-47); Lymphocyte # 0.87 X10^3/ul (0.83-4.51); Lymphocyte % 8.5 % (19-41); Mean Corp Hgb Conc 30.4 g/dL (32-36); Mean Corpuscular Volume 78.7 fL (81-99); Mean Platelet Vol. 10.2 fl (6.2-12.0); Monocyte# 0.91 X10^3/uL; Monocyte% 8.9 % (0-10); NRBC Flagged by Analyzer 0 % (0-5); Neutrophil # 7.43 X10^3/uL (2.7-7.7); Neutrophil % 72.1 % (47-70); Platelet Count 408 K/mm3 (150-450); RBC Distribution Width SD 50.8 fl (35.1-43.9); Red Blood Count 3.34 M/mm3 (4.2-5.4); White Blood Count 10.3 K/mm3 (4.4-11.0)
[2021-08-17 07:28] LABS: Anion Gap 13 (5-15); BUN 4 mg/dL (7-18); BUN/Creat Ratio 8.9 RATIO (10-20); Calcium,Total 7.7 mg/dL (8.5-10.1); Chloride 108 mmol/L (98-107); Creatinine, Serum 0.45 mg/dL (0.55-1.02); EST Glomerular Filtration Rate 141 mL/min (>60); Est Glom Filt Rate - Afr Amer 170 mL/min (>60); Estimated Creatinine Clearance 35.52 ml/min; Glucose 65 mg/dL (74-106); Potassium 3.6 mmol/L (3.5-5.1); Sodium Level 137 mmol/L (136-145)
--- NOTE | 2021-08-17 08:05 | RAD_ITS ---
STUDY: GASTROGRAFIN SMALL BOWEL FOLLOW-THROUGH EXAMINATION. REASON FOR EXAM: Female, 86 years old. Ileus vs sbo, gastrograffin only please TECHNIQUE: GASTROGRAFIN was introduced through the indwelling nasogastric tube. The small bowel follow-through examination was then obtained. COMPARISON: None. FINDINGS: The milking system installer film demonstrates dilated small bowel loops. There is dilatation of the small bowel loops with delayed small bowel transit. By 215 minutes, contrast is seen within the ostomy in the left midabdomen. Findings suggestive of an ileus pattern. RAD/Small Bowel Series Only IMPRESSION: Delayed small bowel transit of the GASTROGRAFIN. At 215 minutes, contrast is seen within the ostomy in the left midabdomen. Electronically Signed: Rodríguez Bauman MD at 13:58 EST , Service support ,
[2021-08-17] MEDS: Dextrose 50%-Water 25 GM/50 ML DISP.SYRIN IV (10:34)
[2021-08-17] MEDS: 0.9% Saline Lock 10 ML Syringe IV ×2 (10:35→13:13)
[2021-08-17 10:41] LABS: Bedside Glucose 73 mg/dL (70-110)
[2021-08-17] MEDS: Dext 5%-0.45% NS 1,000 ML 50 ML IV (12:52)
[2021-08-17] MEDS: Ondansetron 4 MG/2 ML Vial IV (13:04)
[2021-08-17] MEDS: Morphine 2 MG/ML Syringe IV ×2 (13:05→17:59)
[2021-08-17] MEDS: hydrALAZINE 20 MG/ML Vial 10 MG IV (13:08)
[2021-08-17] MEDS: BENZOCAINE/MENTHOL 1 LOZENGE MUCOUS MEM (13:23)
--- NOTE | 2021-08-17 15:43 | PCM.PN.HOSP ---
Subjective Subjective Follow-up on post-op medical management: Patient was seen and examined. Still having an ileus. Small bowel series showed delayed bowel transit of Gastrografin. Objective Data Objective Data Vital Signs: Vital Signs Temp Pulse Resp BP Pulse Ox 97.8 F 88 16 174/88 H 98 08/17/21 15:43 08/17/21 13:08 08/17/21 12:45 08/17/21 12:45 08/17/21 12:45 Oxygen Flow Rate (L/min) 1 Oxygen Delivery Method Room Air Weight: 71.2 kg Body Mass Index (BMI) 26.9 Intake & Output: Intake and Output for Last 24 Hours 08/15/21 08/16/21 08/17/21 23:59 23:59 23:59 Intake Total 1982.3333 / 3333 2686.67 / 2686.67 845.00 / 845.00 Output Total 3406 / 3406 900 / 900 250 / 250 Balance -1422.6667 / -1422.6667 1786.67 / 1786.67 595.00 / 595.00 Lab / Micro Data Result Diagrams: 08/17/21 06:15 08/17/21 06:15 Labs: Laboratory Results - last 24 hr 08/17/21 06:15: WBC 10.3, RBC 3.34 L, Hgb 8.0 L, Hct 26.3 L, MCV 78.7 L, MCH 24.0 L, MCHC 30.4 L, RDW Std Deviation 50.8 H, RDW Coeff of Tom 18.0 H, Plt Count 408, MPV 10.2, Immature Gran % (Auto) 5.000 H, Neut % (Auto) 72.1 H, Lymph % (Auto) 8.5 L, [place] % (Auto) 8.9, Eos % (Auto) 5.0, Baso % (Auto) 0.5, Absolute Neuts (auto) 7.4, Absolute Lymphs (auto) 0.87, Nucleated RBC % 0 08/17/21 06:15: Sodium 137, Potassium 3.6, Chloride 108 H, Carbon Dioxide 16.0 L, Anion Gap 13, BUN 4 L, Creatinine 0.45 L, Estim Creat Clear Calc 35.52, Est GFR (MDRD) Af Amer 170, Est GFR (MDRD) Non-Af 141, BUN/Creatinine Ratio 8.9 L, Glucose 65 L, Calcium 7.7 L 08/17/21 10:24: POC Glucose 73 Radiography Diagnostic Testing: Radiology Impression KUB X-Ray 08/17/21 06:32 IMPRESSION: No significant change gaseous bowel dilation. Electronically Signed: Yang Walker MD at 7:05 EST Tel , Service support , Small Bowel X-Ray 08/17/21 08:05 IMPRESSION: Delayed small bowel transit of the GASTROGRAFIN. At 215 minutes, contrast is seen within the ostomy in the left midabdomen. Electronically Signed: Rodríguez Bauman MD at 13:58 EST , Service support , Physical Exam Narrative Physical exam: General: Alert, Oriented x3, Cooperative, No apparent distress, Well developed HEENT: Atraumatic Oral: Moist Mucosa Neck: Supple Lungs: Clear to auscultation Cardiovascular: HS I+II, regular, no murmurs Abdomen: Bowel Sounds hypoactive, Soft, upper quadrant colostomy, pink Extremities: No edema Assessment & Plan Assessment/Plan (1) Abdominal pain: QUALIFIERS: Abdominal location: generalized Qualified Code(s): R10.84 - Generalized abdominal pain (2) Constipation, acute: PLAN: 1. POD# 8 status post emergent exploratory laparotomy with sigmoid colectomy and end colectomy on 08/09/21 Ileus persists, status post NG tube placement Kept n.p.o., continue on IV fluids Patient presented with intestinal obstruction due to colon cancer with carcinomatosis History of colon CA status post partial colectomy in March 2021 Status post unsuccessful therapeutic enema, decompressive colonoscopy Recent KUB shows probable small bowel obstruction General surgery following; continue per general surgery recommendations 2. Hypokalemia/hypomagnesemia, replaced 3. Rest of her chronic medical conditions including CAD status post CABG, hypertension, hyperlipidemia, history of carotid disease, hypothyroidism, TIA, anxiety, GERD -stable 4. DVT prophylaxis?heparin subcu Charges/Coding Visit Charges Inpatient E&M: 06837 Subs Hosp L2
--- NOTE | 2021-08-17 16:26 | WOUNDNOTE ---
Colostomy appliance changed with patient and son. there was minimal liquid stool noted in the appliance at this time. abdomen remains distended. patient states abdomen is tender, but less painful. stoma is pink and moist. remains well budded. still slightly edematous. cleansed the peristomal skin with warm water. pat dry. some mild redness noted. no weeping. applied a new 2 piece flat [place] appliance with a small amount of stoma paste. pt tolerated well. all questions answered.
--- NOTE | 2021-08-17 17:39 | NURSING ---
reviewed documentation by Ej Hernandez, student RN
[2021-08-18] VITALS (9 sets, daily range): BP systolic 151–167; BP diastolic 65–87; PULSE 77–102; RESP 16–18; TEMP 36.6–37.1; O2SAT 93–100
[2021-08-18 06:30] LABS: Hematocrit 25.6 % (37-47); Hemoglobin 8.1 g/dL (12.0-15.0); Mean Corp Hgb Conc 31.6 g/dL (32-36); Mean Corpuscular Hgb 24.7 pg (27.0-32.0); Mean Platelet Vol. 10.3 fl (6.2-12.0); POSITIVE COUNT YES; POSITIVE MORPHOLOGY YES; Platelet Count 404 K/mm3 (150-450); RBC Distribution Width CV 18.1 % (11.6-14.6); RBC Distribution Width SD 50.7 fl (35.1-43.9); Red Blood Count 3.28 M/mm3 (4.2-5.4); White Blood Count 9.3 K/mm3 (4.4-11.0)
[2021-08-18 06:33] LABS: Differential Indicated MANUAL DIFF
[2021-08-18] MEDS: Dext 5%-0.45% NS 1,000 ML 50 ML IV (06:34)
[2021-08-18] MEDS: Heparin Injection (Vial) 5,000 UNIT/ML VIAL 5000 UNIT SC ×3 (06:35→20:26)
[2021-08-18 06:48] LABS: ALB/GLOB Ratio 0.5 RATIO (0.9-2.4); AST(SGOT) 9 U/L (15-37); Alanine Aminotransfer ALT/SGPT 11 U/L (13-56); Alkaline Phosphatase 45 U/L (45-117); Anion Gap 10 (5-15); BUN 4 mg/dL (7-18); BUN/Creat Ratio 7.5 RATIO (10-20); Calcium,Total 7.9 mg/dL (8.5-10.1); Chloride 106 mmol/L (98-107); Creatinine, Serum 0.53 mg/dL (0.55-1.02); EST Glomerular Filtration Rate 116 mL/min (>60); Est Glom Filt Rate - Afr Amer 140 mL/min (>60); Estimated Creatinine Clearance 35.52 ml/min; Globulin 3.8 g/dL (2.2-4.2); Glucose 106 mg/dL (74-106); Magnesium 1.7 mg/dL (1.6-2.6); Phosphorus 2.4 mg/dL (2.5-4.9); Potassium 3.1 mmol/L (3.5-5.1); Protein, Total 5.8 g/dL (6.4-8.2); Sodium Level 138 mmol/L (136-145)
[2021-08-18 07:12] LABS: Eosinophil 2 % (0-5); Lymphocyte 7 % (19-41); Metamyelocyte 1 % (0-1); Monocyte 4 % (0-10); Myelocyte 3 % (0-0); Neutrophil-Segmented 83 % (47-70); Total Cells Counted 100 (MANUAL DIFF)
[2021-08-18 07:13] LABS: Platelet Estimate ADEQUATE (ADEQ); Red Cell Morphology NORM C+C NORMAL (NORM C&C)
[2021-08-18 07:14] LABS: Absolute Lymphocyte Count 0.65 X10^3/uL (0.83-4.51); Absolute Neutrophil Count 7.7 X10^3/uL (2.0-7.7); Lymphocyte # 0.65 X10^3/ul (0.83-4.51); Neutrophil # 7.69 X10^3/uL (2.7-7.7)
--- NOTE | 2021-08-18 08:25 | PN.SURG_ITS ---
Subjective Subjective Patient does report that the right lower quadrant pain is gone and she is not having any nausea or vomiting. She had a small bowel follow-through yesterday which produced copious amounts of stool. She is having gas in her colostomy bag this morning. Objective Data Objective Data Vital Signs: Vital Signs Temp Pulse Resp BP Pulse Ox 98 F 102 H 18 158/87 H 96 08/18/21 04:10 08/18/21 04:10 08/18/21 04:10 08/18/21 04:10 08/18/21 04:10 Oxygen Flow Rate (L/min) 1 Oxygen Delivery Method Room Air Weight: 155 lb 10.342 oz Body Mass Index (BMI) 26.9 Intake & Output: Intake and Output for Last 24 Hours 08/16/21 08/17/21 08/18/21 23:59 23:59 23:59 Intake Total 2686.67 / 2686.67 975.00 / 975.00 965 / 965 Output Total 900 / 900 1625 / 1625 850 / 850 Balance 1786.67 / 1786.67 -650.00 / -650.00 115 / 115 Lab / Micro Data Result Diagrams: 08/18/21 05:54 08/18/21 05:54 Labs: Laboratory Results - last 24 hr 08/17/21 10:24: POC Glucose 73 08/18/21 05:54: WBC 9.3, RBC 3.28 L, Hgb 8.1 L, Hct 25.6 L, MCV 78.0 L, MCH 24.7 L, MCHC 31.6 L, RDW Std Deviation 50.7 H, RDW Coeff of Tom 18.1 H, Plt Count 404, MPV 10.3, Neut % (Auto) Not Reportable, Absolute Neuts (auto) 7.7, Absolute Lymphs (auto) 0.65 L, Total Counted 100, Neutrophils % (Manual) 83 H, Lymphocytes % (Manual) 7 L, Monocytes % (Manual) 4, Eosinophils % (Manual) 2, Metamyelocytes % 1, Myelocytes % 3 H, Diff Path Review May foll, Platelet Es timate ADEQUATE, RBC Morphology NORM C+C 08/18/21 05:54: Sodium 138, Potassium 3.1 L, Chloride 106, Carbon Dioxide 22.0, Anion Gap 10, BUN 4 L, Creatinine 0.53 L, Estim Creat Clear Calc 35.52, Est GFR (MDRD) Af Amer 140, Est GFR (MDRD) Non-Af 116, BUN/Creatinine Ratio 7.5 L, Glucose 106, Calcium 7.9 L, Phosphorus 2.4 L, Magnesium 1.7, Total Bilirubin 0.30, AST 9 L, ALT 11 L, Alkaline Phosphatase 45, Total Protein 5.8 L, Albumin 2.0 L, Globulin 3.8, Albumin/Globulin Ratio 0.5 L Radiography Diagnostic Testing: Radiology Impression Small Bowel X-Ray 08/17/21 08:05 IMPRESSION: Delayed small bowel transit of the GASTROGRAFIN. At 215 minutes, contrast is seen within the ostomy in the left midabdomen. Electronically Signed: Rodríguez Bauman MD at 13:58 EST , Service support , Physical Exam Const oriented x3 and no apparent distress Resp normal respiratory effort GI soft to palpation and non-tender Assessment & Plan Assessment/Plan (1) Bowel obstruction: QUALIFIERS: Intestinal obstruction type: unspecified Intestinal obstruction extent: unspecified extent Qualified Code(s): K56.609 - Unspecified intestinal obstruction, unspecified as to partial versus complete obstruction PLAN: Patient's postoperative ileus seems to be improving. She is having copious output from her colostomy and gas. She is small bowel follow-through yesterday which did not show any obstruction. I will be removing the NG tube today and starting clear liquid diet. Patient has hypophosphatemia and hypokalemia and I will replace both. Nehemias Pan MD Pager: [facility] [address] [place] [address], [address] [place] [address] Office:
[2021-08-18] MEDS: Hydrocortisone 10 MG Tablet 5 MG PO (09:10)
[2021-08-18] MEDS: Losartan Potassium 50 MG Tablet PO (09:13)
[2021-08-18] MEDS: Acetaminophen 325 MG Tablet 650 MG PO ×2 (09:24→20:27)
[2021-08-18] MEDS: Magnesium Sulfate 4gm/100mL 4 GM/100 ML IV.SOLN. IV (10:26)
[2021-08-18] MEDS: 0.9% Saline Lock 10 ML Syringe IV ×2 (10:39→18:40)
--- NOTE | 2021-08-18 10:39 | CASEMGMT ---
Addendum entered by Kayla Montemayor 08/18/21 12:30: SW reviewed PT. Pt walked 200ft stand by assist. FERNANDO and BAIRON JUAREZ to speak with pt. Since pt is walking well pt will likely get denied SNF. Original Note: Social Work Note SW updated that pt is inquiring about SNF placement. SW reviewed PT/OT. Pt moving well with PT/OT, will have PT reevaluate pt. FERNANDO spoke with BAIRON JUAREZ. Pt's Colostomy can be managed at home with [facility]. SW will have PT reevaluate pt then will speak with pt. Kayla Montemayor VASCULAR SURGERY PHYSICIAN, RECORDS CUSTODIAN
--- NOTE | 2021-08-18 10:56 | PN.HOSP_ITS ---
Subjective Subjective Follow-up on post-op medical management: Patient was seen and examined. Her ileus is improved. Denied any new com plaints. She has been ambulating. Objective Data Objective Data Vital Signs: Vital Signs Temp Pulse Resp BP Pulse Ox 98.0 F 87 16 167/80 H 94 08/18/21 08:00 08/18/21 08:00 08/18/21 08:00 08/18/21 08:00 08/18/21 08:00 Oxygen Flow Rate (L/min) 1 Oxygen Delivery Method Room Air Weight: 70.6 kg Body Mass Index (BMI) 26.9 Intake & Output: Intake and Output for Last 24 Hours 08/16/21 08/17/21 08/18/21 23:59 23:59 23:59 Intake Total 2686.67 / 2686.67 975.00 / 975.00 1216.67 / 1216.67 Output Total 900 / 900 1625 / 1625 850 / 850 Balance 1786.67 / 1786.67 -650.00 / -650.00 366.67 / 366.67 Lab / Micro Data Result Diagrams: 08/18/21 05:54 08/18/21 05:54 Labs: Laboratory Results - last 24 hr 08/18/21 05:54: WBC 9.3, RBC 3.28 L, Hgb 8.1 L, Hct 25.6 L, MCV 78.0 L, MCH 24.7 L, MCHC 31.6 L, RDW Std Deviation 50.7 H, RDW Coeff of Tom 18.1 H, Plt Count 404, MPV 10.3, Neut % (Auto) Not Reportable, Absolute Neuts (auto) 7.7, Absolute Lymphs (auto) 0.65 L, Total Counted 100, Neutrophils % (Manual) 83 H, Lymphocytes % (Manual) 7 L, Monocytes % (Manual) 4, Eosinophils % (Manual) 2, Metamyelocytes % 1, Myelocytes % 3 H, Diff Path Review February, Platelet Estimate ADEQUATE, RBC Morphology NORM C+C 08/18/21 05:54: Sodium 138, Potassium 3.1 L, Chloride 106, Carbon Dioxide 22.0, Anion Gap 10, BUN 4 L, Creatinine 0.53 L, Estim Creat Clear Calc 35.52, Est GFR (MDRD) Af Amer 140, Est GFR (MDRD) Non-Af 116, BUN/Creatinine Ratio 7.5 L, Glucose 106, Calcium 7.9 L, Phosphorus 2.4 L, Magnesium 1.7, Total Bilirubin 0.30, AST 9 L, ALT 11 L, Alkaline Phosphatase 45, Total Protein 5.8 L, Albumin 2.0 L, Globulin 3.8, Albumin/Globulin Ratio 0.5 L Radiography Diagnostic Testing: Radiology Impression Small Bowel X-Ray 08/17/21 08:05 IMPRESSION: Delayed small bowel transit of the GASTROGRAFIN. At 215 minutes, contrast is seen within the ostomy in the left midabdomen. Electronically Signed: Rodríguez Bauman MD at 13:58 EST , Service support , Physical Exam Narrative Physical exam: General: Alert, Oriented x3, Cooperative, No apparent distress, Well developed HEENT: Atraumatic Oral: Moist Mucosa Neck: Supple Lungs: Clear to auscultation Cardiovascular: HS I+II, regular, no murmurs Abdomen: Bowel Sounds hypoactive, Soft, upper quadrant colostomy, pink Extremities: No edema Assessment & Plan Assessment/Plan (1) Abdominal pain: QUALIFIERS: Abdominal location: generalized Qualified Code(s): R10.84 - Generalized abdominal pain (2) Constipation, acute: PLAN: 1. 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 Hypokalemia/hypomagnesemia/Hypophosphatemia, replaced, recheck in am 3. Rest of her chronic medical conditions including CAD status post CABG, hypertension, hyperlipidemia, history of carotid disease, hypothyroidism, TIA, anxiety, GERD -stable 4. DVT prophylaxis?heparin subcu Charges/Coding Visit Charges Inpatient E&M: 22142 Subs Hosp L2
--- NOTE | 2021-08-18 14:11 | CASEMGMT ---
RN CM in to pt room with Juan Daniel KING. Pt did not understand that therapy would be done in a SNF. Pt is not wanting to go to a SNF. Pt is aware that [facility] PT and OT can be ordered. She is agreeable to this. Order added. TC to [facility], spoke with Bertha, faxed updated order as well as ostomy order. Green sheet on chart in case pt dc's this weekend.
[2021-08-18 14:21] LABS: Pathologist Review Reviewed
--- NOTE | 2021-08-18 14:32 | CASEMGMT ---
Social Work Note FERNANDO and BAIRON JUAREZ in to speak with pt to confirm discharge plans. SW asked pt why she feels she cannot go home. Pt states well I am going to be alone. SW asked pt why she feels she cannot manage at home alone. Pt states well I am going to have to get up and move and go to the bathroom. SW spoke with pt about how she is walking 200ft standby. SW asked pt if her sons could stay initially with pt. Pt states well they check on me everyday, but they work. SW spoke with pt about how there has to be skillable reason to send someone to a correction. Pt states I didn't mean going to a correction, I meant going somewhere for therapy. SW informed pt that going somewhere for therapy is going to a correction. Pt asked if she could stay at [facility] for therapy. SW informed pt that there is TCU at [facility] but informed pt that it is a correction in the hospital. SW informed pt that there has to be a skillable reason for pt to go to SNF and with pt walking 200ft standby assist, she will likely get denied SNF. SW informed pt that she would have to be at [facility] through the weekend waiting on pre-cert and then she will likely get denied. BAIRON JUAREZ spoke with pt about HHC. Pt agreeable to home with C. Kayla Montemayor SWATCH FOLDER, PERCH MENDER
[2021-08-18] MEDS: traMADol 50 MG Tablet PO (15:30)
[2021-08-18] MEDS: Morphine 2 MG/ML Syringe IV (18:33)
--- NOTE | 2021-08-18 19:38 | NURSING ---
reviewed documentation by Ej Hernandez, student RN
[2021-08-18] MEDS: MELATONIN 3 MG TABLET PO (20:26)
[2021-08-18] MEDS: Atorvastatin Calcium 40 MG Tablet PO (20:26)
[2021-08-19] VITALS (9 sets, daily range): BP systolic 104–151; BP diastolic 65–83; PULSE 80–89; RESP 16–20; TEMP 36.6–37.2; O2SAT 93–100
[2021-08-19] MEDS: Levothyroxine 75 MCG Tablet PO (06:00)
[2021-08-19] MEDS: Heparin Injection (Vial) 5,000 UNIT/ML VIAL 5000 UNIT SC ×3 (06:00→21:08)
--- NOTE | 2021-08-19 08:13 | PN.SURG_ITS ---
Subjective Subjective Patient reports she had cramping yesterday but her abdomen feels much better this morning. She is having output from her ostomy with no nausea or vomiting. Objective Data Objective Data Vital Signs: Vital Signs Temp Pulse Resp BP Pulse Ox 98.1 F 83 16 151/83 H 93 08/19/21 03:43 08/19/21 03:43 08/19/21 03:43 08/19/21 03:43 08/19/21 03:43 Oxygen Flow Rate (L/min) 1 Oxygen Delivery Method Room Air Weight: 155 lb 10.342 oz Body Mass Index (BMI) 26.9 Intake & Output: Intake and Output for Last 24 Hours 08/17/21 08/18/21 08/19/21 23:59 23:59 23:59 Intake Total 975.00 / 975.00 2070.0033 / 2070.0033 290 / 290 Output Total 1625 / 1625 1150 / 1150 450 / 450 Balance -650.00 / -650.00 920.0033 / 920.0033 -160 / -160 Lab / Micro Data Result Diagrams: 08/18/21 05:54 08/18/21 05:54 Labs: Laboratory Results - last 24 hr 08/18/21 05:54: Diff Path Review Reviewed Physical Exam Const oriented x3 and no apparent distress Resp normal respiratory effort Cardio regular rate and regular rhythm GI soft to palpation and non-tender Assessment & Plan Assessment/Plan (1) Carcinomatosis: (2) Abdominal pain: QUALIFIERS: Abdominal location: generalized Qualified Code(s): R10.84 - Generalized abdominal pain PLAN: Patient is having output from her ostomy I will start her on clear liquid diet and advance as tolerated. She will need to go home with home health care once tolerating a diet. Nehemias Pan MD Pager: [facility] [address] [place] [address], [address] [place] [address] Office:
[2021-08-19] MEDS: Hydrocortisone 10 MG Tablet 5 MG PO (08:26)
[2021-08-19] MEDS: Acetaminophen 325 MG Tablet 650 MG PO ×2 (08:29→16:59)
[2021-08-19 09:23] LABS: Absolute Lymphocyte Count 0.56 X10^3/uL (0.83-4.51); Absolute Neutrophil Count 7.2 X10^3/uL (2.0-7.7); Basophil# 0.05 X10^3/uL; Basophil% 0.5 % (0-1); Eosinophil# 0.41 X10^3/uL; Eosinophils% 4.3 % (0-5); Hematocrit 30.4 % (37-47); Hemoglobin 9.4 g/dL (12.0-15.0); Lymphocyte # 0.56 X10^3/ul (0.83-4.51); Lymphocyte % 5.9 % (19-41); Mean Corp Hgb Conc 30.9 g/dL (32-36); Mean Corpuscular Hgb 24.1 pg (27.0-32.0); Mean Corpuscular Volume 77.9 fL (81-99); Monocyte# 0.99 X10^3/uL; Monocyte% 10.4 % (0-10); NRBC Flagged by Analyzer 0 % (0-5); Neutrophil # 7.15 X10^3/uL (2.7-7.7); Neutrophil % 74.8 % (47-70); POSITIVE DIFFERENTIAL YES; Platelet Count 442 K/mm3 (150-450); RBC Distribution Width CV 18.1 % (11.6-14.6); RBC Distribution Width SD 50.9 fl (35.1-43.9); White Blood Count 9.6 K/mm3 (4.4-11.0)
[2021-08-19 09:44] LABS: Differential Indicated SCAN CRITERIA MET
[2021-08-19 09:50] LABS: ALB/GLOB Ratio 0.6 RATIO (0.9-2.4); AST(SGOT) 14 U/L (15-37); Alanine Aminotransfer ALT/SGPT 13 U/L (13-56); Albumin, Serum 2.4 g/dL (3.2-5.0); Alkaline Phosphatase 56 U/L (45-117); Anion Gap 9 (5-15); BUN 8 mg/dL (7-18); BUN/Creat Ratio 6.9 RATIO (10-20); Calcium,Total 8.4 mg/dL (8.5-10.1); Chloride 106 mmol/L (98-107); Creatinine, Serum 1.16 mg/dL (0.55-1.02); EST Glomerular Filtration Rate 47 mL/min (>60); Est Glom Filt Rate - Afr Amer 57 mL/min (>60); Estimated Creatinine Clearance 30.62 ml/min; Globulin 4.1 g/dL (2.2-4.2); Glucose 111 mg/dL (74-106); Magnesium 2.5 mg/dL (1.6-2.6); Potassium 3.2 mmol/L (3.5-5.1); Protein, Total 6.5 g/dL (6.4-8.2); Sodium Level 137 mmol/L (136-145)
[2021-08-19 09:57] LABS: Differential Comment SCANNED
[2021-08-19] MEDS: 0.9% Saline Lock 10 ML Syringe IV ×3 (10:43→23:57)
[2021-08-19] MEDS: Losartan Potassium 50 MG Tablet PO (10:49)
--- NOTE | 2021-08-19 11:30 | PCM.PN.HOSP ---
Subjective Subjective Follow-up on post-op medical management: Patient was seen and examined. She complains of dizziness and feeling fatigued. Denied any new complaints. She has been ambulating. Objective Data Objective Data Vital Signs: Vital Signs Temp Pulse Resp BP Pulse Ox 98.5 F 89 20 H 124/65 H 94 08/19/21 09:45 08/19/21 10:00 08/19/21 10:00 08/19/21 09:45 08/19/21 10:00 Oxygen Flow Rate (L/min) 1 Oxygen Delivery Method Room Air Weight: 70.6 kg Body Mass Index (BMI) 26.9 Intake & Output: Intake and Output for Last 24 Hours 08/17/21 08/18/21 08/19/21 23:59 23:59 23:59 Intake Total 975.00 / 975.00 2070.0033 / 2070.0033 530 / 530 Output Total 1625 / 1625 1150 / 1150 850 / 850 Balance -650.00 / -650.00 920.0033 / 920.0033 -320 / -320 Lab / Micro Data Result Diagrams: 08/19/21 09:09 08/19/21 09:09 Labs: Laboratory Results - last 24 hr 08/18/21 05:54: Diff Path Review Reviewed 08/19/21 09:09: WBC 9.6, RBC 3.90 L, Hgb 9.4 L, Hct 30.4 L, MCV 77.9 L, MCH 24.1 L, MCHC 30.9 L, RDW Std Deviation 50.9 H, RDW Coeff of Tom 18.1 H, Plt Count 442, MPV 10.0, Immature Gran % (Auto) 4.100 H, Neut % (Auto) 74.8 H, Lymph % (Auto) 5.9 L, [place] % (Auto) 10.4 H, Eos % (Auto) 4.3, Baso % (Auto) 0.5, Absolute Neuts (auto) 7.2, Absolute Lymphs (auto) 0.56 L, Nucleated RBC % 0, Differential Comment SCANNED 08/19/21 09:09: Sodium 137, Potassium 3.2 L, Chloride 106, Carbon Dioxide 22.0, Anion Gap 9, BUN 8, Creatinine 1.16 H, Estim Creat Clear Calc 30.62, Est GFR (MDRD) Af Amer 57 L, Est GFR (MDRD) Non-Af 47 L, BUN/Creatinine Ratio 6.9 L, Glucose 111 H, Calcium 8.4 L, Magnesium 2.5, Total Bilirubin 0.50, AST 14 L, ALT 13, Alkaline Phosphatase 56, Total Protein 6.5, Albumin 2.4 L, Globulin 4.1, Albumin/Globulin Ratio 0.6 L Physical Exam Narrative Physical exam: General: Alert, Oriented x3, Cooperative, No apparent distress, Well developed HEENT: Atraumatic Oral: Moist Mucosa Neck: Supple Lungs: Clear to auscultation Cardiovascular: HS I+II, regular, no murmurs Abdomen: Bowel Sounds hypoactive, Soft, upper quadrant colostomy, pink Extremities: No edema Assessment & Plan Assessment/Plan (1) Abdominal pain: QUALIFIERS: Abdominal location: generalized Qualified Code(s): R10.84 - Generalized abdominal pain (2) Constipation, acute: PLAN: 1. 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 Hypokalemia/hypomagnesemia/Hypophosphatemia, replaced, recheck in am 3. SONALI, pre-renal secondary to dehydration, fluid loss, continue on IVF Continue on repeat labs 4. Rest of her chronic medical conditions including CAD status post CABG, hypertension, hyperlipidemia, history of carotid disease, hypothyroidism, TIA, anxiety, GERD -stable 5. DVT prophylaxis?heparin subcu Charges/Coding Visit Charges Inpatient E&M: 92506 Subs Hosp L2
[2021-08-19] MEDS: Potassium Chloride 10mEq/100mL 10 MEQ/100 ML IV.SOLN. 100 MEQ IV BOLUS ×4 (13:29→18:25)
[2021-08-19] MEDS: 0.9% Normal Saline 1,000 ML 75 ML IV (15:15)
[2021-08-19] MEDS: Ondansetron 4 MG/2 ML Vial IV (20:32)
[2021-08-19] MEDS: Morphine 2 MG/ML Syringe IV (21:03)
[2021-08-19] MEDS: Atorvastatin Calcium 40 MG Tablet PO (21:08)
[2021-08-19 21:41] LABS: Bedside Glucose 101 mg/dL (70-110)
[2021-08-19] MEDS: proCHLORPERazine 10 MG/2 ML Vial 5 MG IV (23:56)
[2021-08-20] VITALS (10 sets, daily range): BP systolic 130–152; BP diastolic 55–90; PULSE 88–100; RESP 14–18; TEMP 36.8–37.4; O2SAT 94–97
[2021-08-20] MEDS: Heparin Injection (Vial) 5,000 UNIT/ML VIAL 5000 UNIT SC ×2 (05:39→14:39)
[2021-08-20] MEDS: Ondansetron 4 MG/2 ML Vial IV ×2 (05:40→12:59)
[2021-08-20 08:04] LABS: Absolute Lymphocyte Count 0.65 X10^3/uL (0.83-4.51); Absolute Neutrophil Count 8.8 X10^3/uL (2.0-7.7); Basophil# 0.06 X10^3/uL; Basophil% 0.5 % (0-1); Eosinophil# 0.27 X10^3/uL; Eosinophils% 2.4 % (0-5); Hematocrit 30.2 % (37-47); Hemoglobin 9.4 g/dL (12.0-15.0); Lymphocyte # 0.65 X10^3/ul (0.83-4.51); Lymphocyte % 5.7 % (19-41); Mean Corp Hgb Conc 31.1 g/dL (32-36); Mean Corpuscular Hgb 24.5 pg (27.0-32.0); Mean Corpuscular Volume 78.6 fL (81-99); Mean Platelet Vol. 10.9 fl (6.2-12.0); Monocyte# 1.26 X10^3/uL; Monocyte% 11.1 % (0-10); NRBC Flagged by Analyzer 0 % (0-5); Neutrophil # 8.77 X10^3/uL (2.7-7.7); Neutrophil % 77.4 % (47-70); Platelet Count 467 K/mm3 (150-450); RBC Distribution Width CV 18.3 % (11.6-14.6); Red Blood Count 3.84 M/mm3 (4.2-5.4); White Blood Count 11.3 K/mm3 (4.4-11.0)
[2021-08-20] MEDS: Hydrocortisone 10 MG Tablet 5 MG PO (08:12)
[2021-08-20 08:21] LABS: ALB/GLOB Ratio 0.6 RATIO (0.9-2.4); AST(SGOT) 13 U/L (15-37); Alanine Aminotransfer ALT/SGPT 11 U/L (13-56); Albumin, Serum 2.3 g/dL (3.2-5.0); Alkaline Phosphatase 59 U/L (45-117); Anion Gap 11 (5-15); BUN 12 mg/dL (7-18); BUN/Creat Ratio 7.2 RATIO (10-20); Calcium,Total 8.5 mg/dL (8.5-10.1); Chloride 106 mmol/L (98-107); Creatinine, Serum 1.66 mg/dL (0.55-1.02); EST Glomerular Filtration Rate 31 mL/min (>60); Est Glom Filt Rate - Afr Amer 38 mL/min (>60); Globulin 4.1 g/dL (2.2-4.2); Glucose 92 mg/dL (74-106); Potassium 3.8 mmol/L (3.5-5.1); Protein, Total 6.4 g/dL (6.4-8.2); Sodium Level 137 mmol/L (136-145)
--- NOTE | 2021-08-20 08:53 | PCM.PN.SRG ---
Subjective Subjective Patient was doing well during the day yesterday but then around 8 PM she started getting nauseated. She did have a small amount of emesis overnight. Objective Data Objective Data Vital Signs: Vital Signs Temp Pulse Resp BP Pulse Ox 99.4 F H 100 18 141/55 H 95 08/20/21 08:00 08/20/21 08:00 08/20/21 08:00 08/20/21 08:00 08/20/21 08:00 Oxygen Flow Rate (L/min) 1 Oxygen Delivery Method Room Air Weight: 162 lb 7.691 oz Body Mass Index (BMI) 26.9 Intake & Output: Intake and Output for Last 24 Hours 08/18/21 08/19/21 08/20/21 23:59 23:59 23:59 Intake Total 2070.0033 / 2070.0033 2260 / 2985.00 1158.75 / 1158.75 Output Total 1150 / 1150 1175 / 1175 150 / 150 Balance 920.0033 / 920.0033 1085 / 1810.00 1008.75 / 1008.75 Lab / Micro Data Result Diagrams: 08/20/21 06:48 08/20/21 06:48 Labs: Laboratory Results - last 24 hr 08/19/21 09:09: WBC 9.6, RBC 3.90 L, Hgb 9.4 L, Hct 30.4 L, MCV 77.9 L, MCH 24.1 L, MCHC 30.9 L, RDW Std Deviation 50.9 H, RDW Coeff of Tom 18.1 H, Plt Count 442, MPV 10.0, Immature Gran % (Auto) 4.100 H, Neut % (Auto) 74.8 H, Lymph % (Auto) 5.9 L, [place] % (Auto) 10.4 H, Eos % (Auto) 4.3, Baso % (Auto) 0.5, Absolute Neuts (auto) 7.2, Absolute Lymphs (auto) 0.56 L, Nucleated RBC % 0, Differential Comment SCANNED 08/19/21 09:09: Sodium 137, Potassium 3.2 L, Chloride 106, Carbon Dioxide 22.0, Anion Gap 9, BUN 8, Creatinine 1.16 H, Estim Creat Clear Calc 30.62, Est GFR (MDRD) Af Amer 57 L, Est GFR (MDRD) Non-Af 47 L, BUN/Creatinine Ratio 6.9 L, Glucose 111 H, Calcium 8.4 L, Magnesium 2.5, Total Bilirubin 0.50, AST 14 L, ALT 13, Alkaline Phosphatase 56, Total Protein 6.5, Albumin 2.4 L, Globulin 4.1, Albumin/Globulin Ratio 0.6 L 08/19/21 21:02: POC Glucose 101 08/20/21 06:48: WBC 11.3 H, RBC 3.84 L, Hgb 9.4 L, Hct 30.2 L, MCV 78.6 L, MCH 24.5 L, MCHC 31.1 L, RDW Std Deviation 52.0 H, RDW Coeff of Tom 18.3 H, Plt Count 467 H, MPV 10.9, Immature Gran % (Auto) 2.900 H, Neut % (Auto) 77.4 H, Lymph % (Auto) 5.7 L, [place] % (Auto) 11.1 H, Eos % (Auto) 2.4, Baso % (Auto) 0.5, Absolute Neuts (auto) 8.8 H, Absolute Lymphs (auto) 0.65 L, Nucleated RBC % 0 08/20/21 06:48: Sodium 137, Potassium 3.8, Chloride 106, Carbon Dioxide 20.0 L, Anion Gap 11, BUN 12, Creatinine 1.66 H, Estim Creat Clear Calc 21.40, Est GFR (MDRD) Af Amer 38 L, Est GFR (MDRD) Non-Af 31 L, BUN/Creatinine Ratio 7.2 L, Glucose 92, Calcium 8.5, Total Bilirubin 0.30, AST 13 L, ALT 11 L, Alkaline Phosphatase 59, Total Protein 6.4, Albumin 2.3 L, Globulin 4.1, Albumin/Globulin Ratio 0.6 L Physical Exam Const oriented x3 and no apparent distress Resp normal respiratory effort GI soft to palpation Inspection: abdominal distention Assessment & Plan Assessment/Plan (1) History of colon cancer: PLAN: The patient reports that she had some nausea around 8 PM last night and did have a small amount of emesis. She believes it is because of sugary nature of the clear liquids. She would like to try something more so I will try some full liquids and see if that sits better in her stomach. She is having gas in her colostomy bag. Her creatinine did slightly elevate so we will give her a small bolus of fluid. Recheck labs in the a.m. Encourage ambulation and incentive spirometer. Nehemias Pan MD Pager: [facility] [address] [place] [address], [address] [place] [phone] Office:
--- NOTE | 2021-08-20 10:03 | PN.HOSP_ITS ---
Subjective Subjective Follow-up on post-op medical management: Patient was seen and examined. She states that she did not feel well. She vomited today. She still has some output from her colostomy. Objective Data Objective Data Vital Signs: Vital Signs Temp Pulse Resp BP Pulse Ox 99.4 F H 100 18 141/55 H 95 08/20/21 08:00 08/20/21 08:00 08/20/21 08:00 08/20/21 08:00 08/20/21 08:00 Oxygen Flow Rate (L/min) 1 Oxygen Delivery Method Room Air Weight: 73.7 kg Body Mass Index (BMI) 26.9 Intake & Output: Intake and Output for Last 24 Hours 08/18/21 08/19/21 08/20/21 23:59 23:59 23:59 Intake Total 2070.0033 / 2070.0033 2260 / 2985.00 1158.75 / 1158.75 Output Total 1150 / 1150 1175 / 1175 150 / 150 Balance 920.0033 / 920.0033 1085 / 1810.00 1008.75 / 1008.75 Lab / Micro Data Result Diagrams: 08/20/21 06:48 08/20/21 06:48 Labs: Laboratory Results - last 24 hr 08/19/21 21:02: POC Glucose 101 08/20/21 06:48: WBC 11.3 H, RBC 3.84 L, Hgb 9.4 L, Hct 30.2 L, MCV 78.6 L, MCH 24.5 L, MCHC 31.1 L, RDW Std Deviation 52.0 H, RDW Coeff of Tom 18.3 H, Plt Count 467 H, MPV 10.9, Immature Gran % (Auto) 2.900 H, Neut % (Auto) 77.4 H, Lymph % (Auto) 5.7 L, [place] % (Auto) 11.1 H, Eos % (Auto) 2.4, Baso % (Auto) 0.5, Absolute Neuts (auto) 8.8 H, Absolute Lymphs (auto) 0.65 L, Nucleated RBC % 0 08/20/21 06:48: Sodium 137, Potassium 3.8, Chloride 106, Carbon Dioxide 20.0 L, Anion Gap 11, BUN 12, Creatinine 1.66 H, Estim Creat Clear Calc 21.40, Est GFR (MDRD) Af Amer 38 L, Est GFR (MDRD) Non-Af 31 L, BUN/Creatinine Ratio 7.2 L, Glucose 92, Calcium 8.5, Total Bilirubin 0.30, AST 13 L, ALT 11 L, Alkaline Phosphatase 59, Total Protein 6.4, Albumin 2.3 L, Globulin 4.1, Albumin/Globulin Ratio 0.6 L Physical Exam Narrative Physical exam: General: Alert, Oriented x3, Cooperative, No apparent distress, Well developed HEENT: Atraumatic Oral: Moist Mucosa Neck: Supple Lungs: Clear to auscultation Cardiovascular: HS I+II, regular, no murmurs Abdomen: Abdomen is distended, bowel Sounds hypoactive, Soft, upper quadrant colostomy, pink Extremities: No edema Assessment & Plan Assessment/Plan (1) Abdominal pain: QUALIFIERS: Abdominal location: generalized Qualified Code(s): R10.84 - Generalized abdominal pain (2) Constipation, acute: PLAN: 1. POD# 11 status post emergent exploratory laparotomy with sigmoid colectomy and end colectomy on 08/09/21 Patient with persistent ileus; vomited today. 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 Hypokalemia/hypomagnesemia/Hypophosphatemia, replaced, recheck in am 3. SONALI, pre-renal secondary to dehydration, fluid loss, Creatinine slowly creeping up to 1.66, continue on IVF Continue on repeat labs, if creatinine continues to creep up, consider nephrology consult 4. Rest of her chronic medical conditions including CAD status post CABG, hypertension, hyperlipidemia, history of carotid disease, hypothyroidism, TIA, anxiety, GERD -stable 5. DVT prophylaxis?heparin subcu Charges/Coding Visit Charges Inpatient E&M: 86602 Subs Hosp L2
[2021-08-20 11:13] LABS: Mucous, Urine 0 SEEN /hpf (<or=2+); Red Blood Cells-Urine 0 SEEN /hpf (0-5)
[2021-08-20 11:14] LABS: Color, Urine Yellow (Yellow); Glucose, Dipstick Normal (Normal); Ketone-Dipstick 5 mg/dl (Negative); Leukocyte Esterase-Dipstick 500 /ul (Negative); Nitrite-Dipstick Negative (Negative); Occult Blood-Urine 10 /ul (Negative); Protein-Dipstick 15 mg/dl (Negative); Urine Bilirubin Dipstick Negative (Negative); Urine Clarity Clear (Clear); Urine Urobilinogen Normal (Normal)
[2021-08-20] MEDS: Morphine 2 MG/ML Syringe IV (11:20)
[2021-08-20] MEDS: 0.9% Saline Lock 10 ML Syringe IV ×4 (11:20→20:41)
[2021-08-20 11:21] LABS: Bacteria 1+ /hpf (None Seen); Squamous Epithelial Cells - UA 5-10 SEEN /hpf (5-10); White Blood Cells 5-10 SEEN /hpf (0-5)
[2021-08-20] MEDS: Losartan Potassium 50 MG Tablet PO (11:22)
[2021-08-20] MEDS: proCHLORPERazine 10 MG/2 ML Vial 5 MG IV ×2 (14:34→20:40)
[2021-08-20] MEDS: 0.9% Normal Saline 1,000 ML 100 ML IV (15:30)
[2021-08-21] VITALS (12 sets, daily range): BP systolic 151–171; BP diastolic 69–96; PULSE 87–107; RESP 16–20; TEMP 36.4–37.1; O2SAT 94–96
[2021-08-21] MEDS: 0.9% Normal Saline 1,000 ML 100 ML IV ×2 (01:39→12:56)
[2021-08-21] MEDS: Atorvastatin Calcium 40 MG Tablet PO (01:40)
[2021-08-21] MEDS: Heparin Injection (Vial) 5,000 UNIT/ML VIAL 5000 UNIT SC ×4 (01:41→22:30)
[2021-08-21] MEDS: Ondansetron 4 MG/2 ML Vial IV ×2 (01:44→08:12)
[2021-08-21] MEDS: hydrALAZINE 20 MG/ML Vial 10 MG IV ×3 (01:58→15:57)
[2021-08-21] MEDS: LORazepam 0.5 MG Tablet PO (02:01)
[2021-08-21] MEDS: 0.9% Saline Lock 10 ML Syringe IV ×2 (02:02→06:00)
[2021-08-21] MEDS: proCHLORPERazine 10 MG/2 ML Vial 5 MG IV ×3 (05:59→19:02)
[2021-08-21] MEDS: Levothyroxine 75 MCG Tablet PO (06:00)
[2021-08-21 06:13] LABS: Absolute Neutrophil Count 9.6 X10^3/uL (2.0-7.7); Basophil# 0.08 X10^3/uL; Basophil% 0.7 % (0-1); Eosinophil# 0.07 X10^3/uL; Eosinophils% 0.6 % (0-5); Hematocrit 30.7 % (37-47); Hemoglobin 9.5 g/dL (12.0-15.0); Lymphocyte % 6.7 % (19-41); Mean Corp Hgb Conc 30.9 g/dL (32-36); Mean Corpuscular Hgb 24.1 pg (27.0-32.0); Mean Corpuscular Volume 77.7 fL (81-99); Mean Platelet Vol. 10.5 fl (6.2-12.0); Monocyte# 1.12 X10^3/uL; Monocyte% 9.4 % (0-10); NRBC Flagged by Analyzer 0 % (0-5); Neutrophil # 9.62 X10^3/uL (2.7-7.7); Neutrophil % 80.3 % (47-70); Platelet Count 515 K/mm3 (150-450); RBC Distribution Width CV 18.2 % (11.6-14.6); RBC Distribution Width SD 51.1 fl (35.1-43.9); Red Blood Count 3.95 M/mm3 (4.2-5.4)
[2021-08-21 06:45] LABS: Anion Gap 12 (5-15); BUN 18 mg/dL (7-18); BUN/Creat Ratio 12.2 RATIO (10-20); Calcium,Total 8.4 mg/dL (8.5-10.1); Chloride 108 mmol/L (98-107); Creatinine, Serum 1.47 mg/dL (0.55-1.02); EST Glomerular Filtration Rate 36 mL/min (>60); Est Glom Filt Rate - Afr Amer 43 mL/min (>60); Estimated Creatinine Clearance 24.16 ml/min; Glucose 89 mg/dL (74-106); Potassium 3.8 mmol/L (3.5-5.1); Sodium Level 138 mmol/L (136-145)
[2021-08-21] MEDS: Hydrocortisone 10 MG Tablet 5 MG PO (08:12)
[2021-08-21] MEDS: Magnesium Citrate 300 ML 150 ML PO (08:13)
[2021-08-21] MEDS: Losartan Potassium 50 MG Tablet PO (08:30)
--- NOTE | 2021-08-21 09:13 | WOUNDNOTE ---
Colostomy appliance changed again with patient. stoma size did slightly decrease again so patient is aware to use the new pattern and measure prior to cutting the opening. patient is still slightly nauseated this am. abdomen is softly distended. stoma remains pink and well budded. peristomal skin is intact. cleansed the skin with warm water. pat dry. applied a new 2 piece Arvind appliance with a small amount of stoma paste. patient tolerated well. will continue with teaching. son has been willing to assist with care as well. has observed this nurse changing the appliance.
--- NOTE | 2021-08-21 11:59 | PN.HOSP_ITS ---
Subjective Subjective Patient seen and examined. She complains of nausea and weakness. She has no abdominal pain. She states she is tolerating the clear liquids this morning. Review of systems otherwise negative. Objective Data Objective Data Vital Signs: Vital Signs Temp Pulse Resp BP Pulse Ox 97.5 F L 99 18 171/82 H 96 08/21/21 08:20 08/21/21 08:27 08/21/21 08:20 08/21/21 08:27 08/21/21 08:20 Oxygen Flow Rate (L/min) 1 Oxygen Delivery Method Room Air Weight: 164 lb 6.4 oz Body Mass Index (BMI) 26.9 Intake & Output: Intake and Output for Last 24 Hours 08/19/21 08/20/21 08/21/21 23:59 23:59 23:59 Intake Total 2260 / 2985.00 2480.00 / 2480.00 1360 / 1360 Output Total 1175 / 1175 850 / 850 950 / 950 Balance 1085 / 1810.00 1630.00 / 1630.00 410 / 410 Lab / Micro Data Result Diagrams: 08/21/21 05:34 08/21/21 05:34 Labs: Laboratory Results - last 24 hr 08/21/21 05:34: WBC 12.0 H, RBC 3.95 L, Hgb 9.5 L, Hct 30.7 L, MCV 77.7 L, MCH 24.1 L, MCHC 30.9 L, RDW Std Deviation 51.1 H, RDW Coeff of Tom 18.2 H, Plt Count 515 H, MPV 10.5, Immature Gran % (Auto) 2.300 H, Neut % (Auto) 80.3 H, Lymph % (Auto) 6.7 L, [place] % (Auto) 9.4, Eos % (Auto) 0.6, Baso % (Auto) 0.7, Absolute Neuts (auto) 9.6 H, Absolute Lymphs (auto) 0.80 L, Nucleated RBC % 0 08/21/21 05:34: Sodium 138, Potassium 3.8, Chloride 108 H, Carbon Dioxide 18.0 L , Anion Gap 12, BUN 18, Creatinine 1.47 H, Estim Creat Clear Calc 24.16, Est GFR (MDRD) Af Amer 43 L, Est GFR (MDRD) Non-Af 36 L, BUN/Creatinine Ratio 12.2, Glucose 89, Calcium 8.4 L Physical Exam Const alert and oriented x3 Orientation / Consciousness: lethargic Exam Limitations: no limitations HEENT head/scalp atraumatic Head and Scalp: normocephalic Mouth: dry mucous membranes Eyes PERRL and EOMs intact bilaterally Neck no lymphadenopathy Resp normal respiratory effort, no retractions, no use of accessory muscles and clear to auscultation bilaterally Cardio regular rate, regular rhythm, S1 normal heart sound, S2 normal heart sound and no murmurs GI GI Narrative: surgical site healing well, colostomy bag has scant watery stool. minimal abominal tenderness on palpation Extremity normal to inspection, full ROM and no clubbing, cyanosis or edema Peripheral Pulses: Yes pulses 2+ throughout Skin no rashes or lesions noted Neuro oriented x3, CN's II-XII intact bilaterally and moves all extremities Sensorium / Orientation: awake and alert Psych affect normal Assessment & Plan Assessment/Plan (1) Status post abdominal surgery, follow-up exam: (2) Carcinomatosis: (3) History of colon cancer: (4) Bowel obstruction: QUALIFIERS: Intestinal obstruction type: unspecified Intestinal obstruction extent: unspecified extent Qualified Code(s): K56.609 - Unspecified intestinal obstruction, unspecified as to partial versus complete obstruction PLAN: #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 Today is POD 12 * general surgery on board. * Now complicated by persistent ileus. General surgery on board. * Now on clear liquid diet. * On IV PPI #CAD s/p CABG x3, aspirin on hold. On statin and losartan which also on hold. #Hypertension: On losartan #Hyperlipidemia: On statin. #History of carotid disease: On aspirin. #Hypothyroidism: On Synthroid #History of colon cancer * S/p partial colectomy in March 2021 at [facility]. now had a synchronous lesion resulting in the sigmoidectomy as noted above. * On Keytruda on outpatient basis. * laparotomy findings as above. Oncology on board. Pathology report pending to determine further treatment. * #History of TIA: On aspirin and statin as well #Anxiety: On Ativan as needed #GERD: On famotidine DVT prophylaxis: heparin Charges/Coding Visit Charges Inpatient E&M: 77311 Subs Hosp L2
--- NOTE | 2021-08-21 12:20 | CASEMGMT ---
RN CM in to pt room per son request. He states he feels that pt needs to go to SNF. He states that he would like to speak to SW to see what he needs to do to get the patient to be able to go to SNF. He states pt has not eaten in 2wks. Notified Renzo KING.
--- NOTE | 2021-08-21 15:37 | CASEMGMT ---
Social Work Note FERNANDO updated that pt's son Silver would like to speak to this worker regarding SNF. SW spoke with PT/OT. Physically, pt is able to return home with [facility]. FERNANDO in to speak with pt and Silver. FERNANDO introduced self and role at [facility]. Silver asked if pt will be discharged on clear liquid diet. SW informed Silver and pt that pt would only discharge when she is able to tolerate full diet. FERNANDO spoke with pt and Silver that PT/OT is stating pt can return home with [facility]. SW spoke with pt and Silver about HHC. Silver asked if they take pt home and pt declines how could they get pt to SNF. SW informed pt and Silver that [facility] can help arrange SNF and so can pt's PCP. FERNANDO explained that insurance states 50ft is household distance and pt is doing double that with contact guard assist. FERNANDO reiterated that pt would likely get denied SNF. Silver asked about paying privately for SNF. FERNANDO informed Silver that that is also an option if they feel pt needs that level of care. Silver states that they will plan on taking pt home with [facility] at this time but will appeal the discharge if he feels pt is discharged too soon. FERNANDO informed Silver that he has a right to appeal the discharge if he chooses. Silver states that pt will need a hospital bed. Silver states that they have been in contact with [facility] in [place], [place] and they will need an order from the physician. Fax will need to be to Stef Gandhi. FERNANDO informed Silver that this worker will let RN ANN know who will update the physician regarding script for Hospital Bed. Patient was provided a list of SNF providers including quality and resource use data and consistent with the patient?s preferred geographic region, medical needs, and insurance network in the event pt and Silver want to look over SNF lists. Pt and Silver state understanding, denied additional needs or concerns at this time. FERNANDO updated RN CM on request for hospital bed. Plan: Home with [facility] Kayla ARGUETA, CLINICAL THERAPIST
[2021-08-21] MEDS: Morphine 2 MG/ML Syringe IV (20:48)
[2021-08-21] MEDS: Furosemide 40 MG/4 ML Vial IV (20:49)
--- NOTE | 2021-08-21 22:13 | RAD_ITS ---
INDICATION: ng placement EXAMINATION/TECHNIQUE: X-RAY - XR Abdomen 1 View COMPARISON: 08/17/2021 small bowel follow-through. FINDINGS: X-rays are centered at the diaphragm in the lower abdomen is excluded from the [id number]. Visualized lungs show mildly prominent perihilar interstitial markings with no definite airspace opacity. No pleural effusion or pneumothorax. Right apical pleural capping is suggested. There is a right-sided PICC line with the tip the level of the distal superior vena cava. Enteric tube follows the expected course of the esophagus with the tip in the distal stomach body. BOWEL GAS PATTERN: Abnormal distended air-filled small bowel loops seen in the upper abdomen. FREE AIR: None exemplified. ORGANOMEGALY: Not seen. CALCIFICATIONS: Multiple costochondral junction calcifications visible. BONES AND SOFT TISSUES: Surgical clips seen in the left upper quadrant region. Thin linear wire-like opacities also in the left upper quadrant may be extraneous to the patient. RAD/Abdomen Single View (Portable) IMPRESSION: Well-positioned enteric tube. Abnormally distended air-filled bowel loops incompletely visualized. Electronically Signed: Dallas Emerson DO at 23:36 EST Tel , Service support ,
[2021-08-22] VITALS (11 sets, daily range): BP systolic 131–157; BP diastolic 67–83; PULSE 94–108; RESP 16; TEMP 36.7–37; O2SAT 93–99
[2021-08-22] MEDS: Heparin Injection (Vial) 5,000 UNIT/ML VIAL 5000 UNIT SC ×3 (06:18→22:32)
[2021-08-22 07:06] LABS: Basophil# 0.05 X10^3/uL; Basophil% 0.5 % (0-1); Eosinophil# 0.07 X10^3/uL; Eosinophils% 0.7 % (0-5); Hemoglobin 8.6 g/dL (12.0-15.0); Lymphocyte % 7.8 % (19-41); Mean Corp Hgb Conc 31.9 g/dL (32-36); Mean Corpuscular Hgb 24.3 pg (27.0-32.0); Mean Corpuscular Volume 76.3 fL (81-99); Mean Platelet Vol. 10.6 fl (6.2-12.0); Monocyte# 1.28 X10^3/uL; Monocyte% 12.4 % (0-10); NRBC Flagged by Analyzer 0 % (0-5); Neutrophil # 7.98 X10^3/uL (2.7-7.7); Neutrophil % 77.3 % (47-70); Platelet Count 414 K/mm3 (150-450); RBC Distribution Width CV 18.3 % (11.6-14.6); RBC Distribution Width SD 50.4 fl (35.1-43.9); Red Blood Count 3.54 M/mm3 (4.2-5.4); White Blood Count 10.3 K/mm3 (4.4-11.0)
[2021-08-22 07:35] LABS: Anion Gap 10 (5-15); BUN 22 mg/dL (7-18); BUN/Creat Ratio 18.3 RATIO (10-20); Calcium,Total 8.6 mg/dL (8.5-10.1); Chloride 105 mmol/L (98-107); EST Glomerular Filtration Rate 45 mL/min (>60); Est Glom Filt Rate - Afr Amer 55 mL/min (>60); Glucose 99 mg/dL (74-106); Potassium 3.2 mmol/L (3.5-5.1); Sodium Level 139 mmol/L (136-145)
[2021-08-22] MEDS: Furosemide 40 MG/4 ML Vial IV (09:51)
[2021-08-22] MEDS: 0.9% Saline Lock 10 ML Syringe IV (09:51)
[2021-08-22] MEDS: Potassium Chloride 20mEq/100mL 20 MEQ/100 ML IV.SOLN. 50 MEQ IV BOLUS ×2 (10:02→12:38)
--- NOTE | 2021-08-22 10:53 | PN.HOSP_ITS ---
Subjective Subjective Patient seen and examined today. She was sitting up in a chair. She had an NG tube in which was draining bilious fluid. She said she felt better. She was back on only ice chips. Review of systems otherwise negative. She has remained hemodynamically stable. Objective Data Objective Data Vital Signs: Vital Signs Temp Pulse Resp BP Pulse Ox 98.6 F 97 16 131/83 H 99 08/22/21 08:30 08/22/21 08:30 08/22/21 08:30 08/22/21 08:30 08/22/21 09:03 Oxygen Flow Rate (L/min) 1 Oxygen Delivery Method Room Air Weight: 164 lb 14.492 oz Body Mass Index (BMI) 26.9 Intake & Output: Intake and Output for Last 24 Hours 08/20/21 08/21/21 08/22/21 23:59 23:59 23:59 Intake Total 2480.00 / 2480.00 3166.67 / 3166.67 0 / 0 Output Total 850 / 850 1550 / 4470 3770 / 3770 Balance 1630.00 / 1630.00 1616.67 / -1303.33 -3770 / -3770 Lab / Micro Data Result Diagrams: 08/22/21 06:35 08/22/21 06:35 Labs: Laboratory Results - last 24 hr 08/22/21 06:35: WBC 10.3, RBC 3.54 L, Hgb 8.6 L, Hct 27.0 L, MCV 76.3 L, MCH 24.3 L, MCHC 31.9 L, RDW Std Deviation 50.4 H, RDW Coeff of Tom 18.3 H, Plt Count 414, MPV 10.6, Immature Gran % (Auto) 1.300 H, Neut % (Auto) 77.3 H, Lymph % (Auto) 7.8 L, [place] % (Auto) 12.4 H, Eos % (Auto) 0.7, Baso % (Auto) 0.5, Absolute Neuts (auto) 8.0 H, Absolute Lymphs (auto) 0.80 L, Nucleated RBC % 0 08/22/21 06:35: Sodium 139, Potassium 3.2 L, Chloride 105, Carbon Dioxide 24.0, Anion Gap 10, BUN 22 H, Creatinine 1.20 H, Estim Creat Clear Calc 29.60, Est GFR (MDRD) Af Amer 55 L, Est GFR (MDRD) Non-Af 45 L, BUN/Creatinine Ratio 18.3, Glucose 99, Calcium 8.6 Radiography Diagnostic Testing: Radiology Impression KUB X-Ray 08/21/21 22:13 IMPRESSION: Well-positioned enteric tube. Abnormally distended air-filled bowel loops incompletely visualized. Electronically Signed: Dallas Emerson DO at 23:36 EST Tel , Service support , ADDENDUM: 08/21/21 2946 IMPRESSION: Well-positioned enteric tube. Abnormally distended air-filled bowel loops incompletely visualized. N.B. : Kervin Mendez RN, confirmed on 08/21/2021 23:42:18 (ET) that the healthcare facility has received the radiology report. Electronically Signed: Dallas Emerson DO at 23:36 EST Tel , Service support , Physical Exam Const alert, oriented x3 and no apparent distress Orientation / Consciousness: lethargic Exam Limitations: no limitations HEENT head/scalp atraumatic and oropharynx normal Head and Scalp: normocephalic Eyes PERRL, EOMs intact bilaterally and conjunctivae normal Neck no lymphadenopathy Resp normal respiratory effort, no retractions, no use of accessory muscles and clear to auscultation bilaterally Cardio regular rate, regular rhythm, S1 normal heart sound, S2 normal heart sound and no murmurs GI GI Narrative: surgical site healing well, colostomy bag has scant watery stool. minimal abominal tenderness on palpation, has NG tube in place draining bilious fluid Extremity normal to inspection, full ROM and no clubbing, cyanosis or edema Peripheral Pulses: Yes pulses 2+ throughout Skin no rashes or lesions noted Neuro oriented x3, CN's II-XII intact bilaterally and moves all extremities Sensorium / Orientation: awake and alert Psych affect normal Assessment & Plan Assessment/Plan (1) Status post abdominal surgery, follow-up exam: (2) Carcinomatosis: (3) History of colon cancer: (4) Bowel obstruction: QUALIFIERS: Intestinal obstruction type: unspecified Intestinal obstruction extent: unspecified extent Qualified Code(s): K56.609 - Unspecified intestinal obstruction, unspecified as to partial versus complete obstruction PLAN: #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 Today is POD 13 * Now complicated by persistent ileus. General surgery on board. * She had an NG tube inserted which is draining bilious fluid. Now back on ice chips. * On IV PPI #CAD s/p CABG x3, aspirin on hold. On statin and losartan which also on hold. #Hypertension: On losartan #Hyperlipidemia: On statin. #History of carotid disease: On aspirin. #Hypothyroidism: On Synthroid #History of colon cancer * S/p partial colectomy in March 2021 at [facility]. now had a synchronous lesion resulting in the sigmoidectomy as noted above. * On Keytruda on outpatient basis. * laparotomy findings as above. Oncology on board. 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 * #History of TIA: On aspirin and statin as well #Anxiety: On Ativan as needed #GERD: On famotidine DVT prophylaxis: heparin Charges/Coding Visit Charges Inpatient E&M: 71990 Subs Hosp L2
--- NOTE | 2021-08-22 11:13 | CASEMGMT ---
Spoke with Dr. Pan, pt has a NG again, no dc soon. TC to [facility], spoke with Ketan to make aware.
--- NOTE | 2021-08-22 12:10 | PCM.PN.SRG ---
Subjective Subjective The patient had a lot of nausea and vomiting overnight and NG tube was placed. She reports since the NG tube was placed she has not had any abdominal pain. She is still not passing through the colostomy Objective Data Objective Data Vital Signs: Vital Signs Temp Pulse Resp BP Pulse Ox 98.6 F 97 16 131/83 H 99 08/22/21 08:30 08/22/21 08:30 08/22/21 08:30 08/22/21 08:30 08/22/21 09:03 Oxygen Flow Rate (L/min) 1 Oxygen Delivery Method Room Air Weight: 164 lb 14.492 oz Body Mass Index (BMI) 26.9 Intake & Output: Intake and Output for Last 24 Hours 08/20/21 08/21/21 08/22/21 23:59 23:59 23:59 Intake Total 2480.00 / 2480.00 3166.67 / 3166.67 0 / 0 Output Total 850 / 850 1550 / 4470 3770 / 3770 Balance 1630.00 / 1630.00 1616.67 / -1303.33 -3770 / -3770 Lab / Micro Data Result Diagrams: 08/22/21 06:35 08/22/21 06:35 Labs: Laboratory Results - last 24 hr 08/22/21 06:35: WBC 10.3, RBC 3.54 L, Hgb 8.6 L, Hct 27.0 L, MCV 76.3 L, MCH 24.3 L, MCHC 31.9 L, RDW Std Deviation 50.4 H, RDW Coeff of Tom 18.3 H, Plt Count 414, MPV 10.6, Immature Gran % (Auto) 1.300 H, Neut % (Auto) 77.3 H, Lymph % (Auto) 7.8 L, [place] % (Auto) 12.4 H, Eos % (Auto) 0.7, Baso % (Auto) 0.5, Absolute Neuts (auto) 8.0 H, Absolute Lymphs (auto) 0.80 L, Nucleated RBC % 0 08/22/21 06:35: Sodium 139, Potassium 3.2 L, Chloride 105, Carbon Dioxide 24.0, Anion Gap 10, BUN 22 H, Creatinine 1.20 H, Estim Creat Clear Calc 29.60, Est GFR (MDRD) Af Amer 55 L, Est GFR (MDRD) Non-Af 45 L, BUN/Creatinine Ratio 18.3, Glucose 99, Calcium 8.6 Radiography Diagnostic Testing: Radiology Impression KUB X-Ray 08/21/21 22:13 IMPRESSION: Well-positioned enteric tube. Abnormally distended air-filled bowel loops incompletely visualized. Electronically Signed: Dallas Emerson DO at 23:36 EST Tel , Service support , ADDENDUM: 08/21/21 2349 IMPRESSION: Well-positioned enteric tube. Abnormally distended air-filled bowel loops incompletely visualized. N.B. : Kervin Mendez RN, confirmed on 08/21/2021 23:42:18 (ET) that the healthcare facility has received the radiology report. Electronically Signed: Dallas Emerson DO at 23:36 EST Tel , Service support , Physical Exam Const no apparent distress Resp normal respiratory effort Cardio regular rate GI soft to palpation Inspection: abdominal distention Assessment & Plan Assessment/Plan (1) Carcinomatosis: PLAN: Patient is still not having a bowel function. Patient may be fluid overloaded so I did order her another dose of Lasix and potassium to replace her hypokalemia. Recheck potassium this afternoon. Continue NG to suction. Nehemias Pan MD Pager: [facility] [address] [place] [address], [address] [place] [phone] Office:
--- NOTE | 2021-08-22 13:04 | NURSING ---
pt c/o butt being sore being up in chair. pt up to br and amb in ann before getting back to bed. floyd well. leo left out at this time d/t pt being sore from
[2021-08-22] MEDS: Losartan Potassium 50 MG Tablet PO (14:57)
[2021-08-22 16:52] LABS: Potassium 3.6 mmol/L (3.5-5.1)
--- NOTE | 2021-08-22 18:03 | NURSING ---
pt up to ambulate again in ann. walked around entire half of floor and back to room and up in chair. call light within reach
[2021-08-23] VITALS (8 sets, daily range): BP systolic 150–163; BP diastolic 58–81; PULSE 77–94; RESP 16; TEMP 36.4–36.8; O2SAT 93–96
[2021-08-23] MEDS: Heparin Injection (Vial) 5,000 UNIT/ML VIAL 5000 UNIT SC ×3 (05:59→20:14)
[2021-08-23 06:35] LABS: Bedside Glucose 145 mg/dL (70-110)
[2021-08-23 06:51] LABS: Absolute Lymphocyte Count 1.37 X10^3/uL (0.83-4.51); Absolute Neutrophil Count 8.9 X10^3/uL (2.0-7.7); Basophil# 0.06 X10^3/uL; Basophil% 0.5 % (0-1); Eosinophils% 1.7 % (0-5); Hematocrit 29.8 % (37-47); Hemoglobin 9.3 g/dL (12.0-15.0); Lymphocyte # 1.37 X10^3/ul (0.83-4.51); Lymphocyte % 11.4 % (19-41); Mean Corp Hgb Conc 31.2 g/dL (32-36); Mean Corpuscular Volume 76.8 fL (81-99); Mean Platelet Vol. 10.5 fl (6.2-12.0); Monocyte# 1.24 X10^3/uL; Monocyte% 10.4 % (0-10); NRBC Flagged by Analyzer 0 % (0-5); Neutrophil # 8.86 X10^3/uL (2.7-7.7); Platelet Count 468 K/mm3 (150-450); RBC Distribution Width CV 18.1 % (11.6-14.6); RBC Distribution Width SD 50.5 fl (35.1-43.9); Red Blood Count 3.88 M/mm3 (4.2-5.4)
[2021-08-23 06:58] LABS: International Normalized Ratio 1.1; Prothrombin Time (Protime)PT. 13.2 SECONDS (11.7-14.9)
[2021-08-23 07:28] LABS: ALB/GLOB Ratio 0.5 RATIO (0.9-2.4); AST(SGOT) 11 U/L (15-37); Alanine Aminotransfer ALT/SGPT 11 U/L (13-56); Albumin, Serum 2.3 g/dL (3.2-5.0); Alkaline Phosphatase 67 U/L (45-117); Anion Gap 9 (5-15); BUN 27 mg/dL (7-18); BUN/Creat Ratio 22.7 RATIO (10-20); Bilirubin, Direct 0.15 mg/dL (0.00-0.30); Calcium,Total 8.7 mg/dL (8.5-10.1); Chloride 103 mmol/L (98-107); Creatinine, Serum 1.19 mg/dL (0.55-1.02); EST Glomerular Filtration Rate 46 mL/min (>60); Est Glom Filt Rate - Afr Amer 55 mL/min (>60); Estimated Creatinine Clearance 29.85 ml/min; Globulin 4.4 g/dL (2.2-4.2); Glucose 131 mg/dL (74-106); Phosphorus 2.8 mg/dL (2.5-4.9); Potassium 2.9 mmol/L (3.5-5.1); Protein, Total 6.7 g/dL (6.4-8.2); Sodium Level 140 mmol/L (136-145); Triglycerides 130 mg/dL
[2021-08-23] MEDS: Potassium Chloride 10mEq/100mL 10 MEQ/100 ML IV.SOLN. 100 MEQ IV BOLUS ×4 (08:36→12:44)
[2021-08-23] MEDS: Furosemide 40 MG/4 ML Vial IV ×2 (08:36→21:42)
--- NOTE | 2021-08-23 10:26 | PCM.PN.SRG ---
Subjective Subjective Patient continues to have large output from her NG tube. No output from the colostomy. No abdominal pain today. Objective Data Objective Data Vital Signs: Vital Signs Temp Pulse Resp BP Pulse Ox 98.1 F 94 16 163/69 H 96 08/23/21 09:00 08/23/21 10:00 08/23/21 09:00 08/23/21 09:00 08/23/21 09:00 Oxygen Flow Rate (L/min) 1 Oxygen Delivery Method Room Air Weight: 158 lb 8.198 oz Body Mass Index (BMI) 26.9 Intake & Output: Intake and Output for Last 24 Hours 08/21/21 08/22/21 08/23/21 23:59 23:59 23:59 Intake Total 3166.67 / 3166.67 820 / 870 220 / 220 Output Total 1550 / 4470 7590 / 7590 700 / 700 Balance 1616.67 / -1303.33 -6770 / -6720 -480 / -480 Lab / Micro Data Result Diagrams: 08/23/21 06:35 08/23/21 06:35 Labs: Laboratory Results - last 24 hr 08/22/21 15:48: Potassium 3.6 08/23/21 06:09: POC Glucose 145 H 08/23/21 06:35: WBC 12.0 H, RBC 3.88 L, Hgb 9.3 L, Hct 29.8 L, MCV 76.8 L, MCH 24.0 L, MCHC 31.2 L, RDW Std Deviation 50.5 H, RDW Coeff of Tom 18.1 H, Plt Count 468 H, MPV 10.5, Immature Gran % (Auto) 2.000 H, Neut % (Auto) 74.0 H, Lymph % (Auto) 11.4 L, [place] % (Auto) 10.4 H, Eos % (Auto) 1.7, Baso % (Auto) 0.5, Absolute Neuts (auto) 8.9 H, Absolute Lymphs (auto) 1.37, Nucleated RBC % 0 08/23/21 06:35: PT 13.2, INR 1.1 08/23/21 06:35: Sodium 140, Potassium 2.9 L, Chloride 103, Carbon Dioxide 28.0, Anion Gap 9, BUN 27 H, Creatinine 1.19 H, Estim Creat Clear Calc 29.85, Est GFR (MDRD) Af Amer 55 L, Est GFR (MDRD) Non-Af 46 L, BUN/Creatinine Ratio 22.7 H, Glucose 131 H, Calcium 8.7, Phosphorus 2.8, Magnesium 2.0, Total Bilirubin 0.30, Direct Bilirubin 0.15, Indirect Bilirubin 0.20, AST 11 L, ALT 11 L, Alkaline Phosphatase 67, Total Protein 6.7, Albumin 2.3 L, Globulin 4.4 H, Albumin/Globulin Ratio 0.5 L, Triglycerides 130 Physical Exam Const no apparent distress Resp normal respiratory effort Cardio regular rate GI soft to palpation and non-tender Assessment & Plan Assessment/Plan (1) Abdominal pain: QUALIFIERS: Abdominal location: generalized Qualified Code(s): R10.84 - Generalized abdominal pain PLAN: I am unsure why the patient has persistent ileus. It may be due to volume overload as she is very positive for this visit. She was started on TPN. We will continue to diurese and replace potassium. Recheck potassium this afternoon. Nehemias Pan MD Pager: [facility] [address] [place] [address], [address] [place] [address] Office:
[2021-08-23] MEDS: Morphine 2 MG/ML Syringe IV ×2 (10:34→20:14)
--- NOTE | 2021-08-23 10:50 | PN.HOSP_ITS ---
Subjective Subjective Patient seen and examined. She feels weak and frail. She still has the NG tube in place, which is bringing out significant output. She was started on TPN yesterday. She has otherwise remained hemodynamically stable. Her potassium is 2.9 today. Objective Data Objective Data Vital Signs: Vital Signs Temp Pulse Resp BP Pulse Ox 98.1 F 94 16 163/69 H 96 08/23/21 09:00 08/23/21 10:00 08/23/21 09:00 08/23/21 09:00 08/23/21 09:00 Oxygen Flow Rate (L/min) 1 Oxygen Delivery Method Room Air Weight: 158 lb 8.198 oz Body Mass Index (BMI) 26.9 Intake & Output: Intake and Output for Last 24 Hours 08/21/21 08/22/21 08/23/21 23:59 23:59 23:59 Intake Total 3166.67 / 3166.67 820 / 870 320 / 320 Output Total 1550 / 4470 7590 / 7590 700 / 700 Balance 1616.67 / -1303.33 -6770 / -6720 -380 / -380 Lab / Micro Data Result Diagrams: 08/23/21 06:35 08/23/21 06:35 Labs: Laboratory Results - last 24 hr 08/22/21 15:48: Potassium 3.6 08/23/21 06:09: POC Glucose 145 H 08/23/21 06:35: WBC 12.0 H, RBC 3.88 L, Hgb 9.3 L, Hct 29.8 L, MCV 76.8 L, MCH 24.0 L, MCHC 31.2 L, RDW Std Deviation 50.5 H, RDW Coeff of Tom 18.1 H, Plt Count 468 H, MPV 10.5, Immature Gran % (Auto) 2.000 H, Neut % (Auto) 74.0 H, Lymph % (Auto) 11.4 L, [place] % (Auto) 10.4 H, Eos % (Auto) 1.7, Baso % (Auto) 0.5, Absolute Neuts (auto) 8.9 H, Absolute Lymphs (auto) 1.37, Nucleated RBC % 0 08/23/21 06:35: PT 13.2, INR 1.1 08/23/21 06:35: Sodium 140, Potassium 2.9 L, Chloride 103, Carbon Dioxide 28.0, Anion Gap 9, BUN 27 H, Creatinine 1.19 H, Estim Creat Clear Calc 29.85, Est GFR (MDRD) Af Amer 55 L, Est GFR (MDRD) Non-Af 46 L, BUN/Creatinine Ratio 22.7 H, Glucose 131 H, Calcium 8.7, Phosphorus 2.8, Magnesium 2.0, Total Bilirubin 0.30, Direct Bilirubin 0.15, Indirect Bilirubin 0.20, AST 11 L, ALT 11 L, Alkaline Phosphatase 67, Total Protein 6.7, Albumin 2.3 L, Globulin 4.4 H, Albumin/Globulin Ratio 0.5 L, Triglycerides 130 Physical Exam Narrative Const alert, oriented x3 and no apparent distress Orientation / Consciousness: lethargic Exam Limitations: no limitations HEENT head/scalp atraumatic and oropharynx normal Head and Scalp: normocephalic Eyes PERRL, EOMs intact bilaterally and conjunctivae normal Neck no lymphadenopathy Resp normal respiratory effort, no retractions, no use of accessory muscles and clear to auscultation bilaterally Cardio regular rate, regular rhythm, S1 normal heart sound, S2 normal heart sound and no murmurs GI normal to inspection, nondistended, normoactive bowel sounds GI Narrative: surgical site healing well, colostomy bag has scant stool. minimal abominal tenderness on palpation, has NG tube in place draining bilious fluid. minimal bowel sounds Extremity normal to inspection, full ROM and no clubbing, cyanosis or edema Skin no rashes or lesions noted Neuro oriented x3, CN's II-XII intact bilaterally and moves all extremities Sensorium / Orientation: awake and alert Psych affect normal Assessment & Plan Assessment/Plan (1) Status post abdominal surgery, follow-up exam: (2) Carcinomatosis: (3) History of colon cancer: (4) Bowel obstruction: QUALIFIERS: Intestinal obstruction type: unspecified Intestinal obstruction extent: unspecified extent Qualified Code(s): K56.609 - Unspecified intestinal obstruction, unspecified as to partial versus complete obstruction PLAN: #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 Today is POD 13 * Now complicated by persistent ileus. General surgery on board. * She had an NG tube inserted which is draining bilious fluid. Now back on ice chips. * started on TPN yesterday, per general surgery. Nutrition on board. * On IV PPI #Hypokalemia: Potassium is 2.9. Will replace aggressively and trend. #CAD s/p CABG x3, aspirin on hold. On statin and losartan which also on hold. #Hypertension: On losartan #Hyperlipidemia: On statin. #History of carotid disease: On aspirin. #Hypothyroidism: On Synthroid #History of colon cancer * S/p partial colectomy in March 2021 at [facility]. now had a synchronous lesion resulting in the sigmoidectomy as noted above. * On Keytruda on outpatient basis. * laparotomy findings as above. Oncology on board. 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 * oncology on board. * #History of TIA: On aspirin and statin as well #Anxiety: On Ativan as needed #GERD: On famotidine DVT prophylaxis: heparin Charges/Coding Visit Charges Inpatient E&M: 37078 Subs Hosp L3
[2021-08-23 11:35] LABS: Bedside Glucose 138 mg/dL (70-110)
[2021-08-23 15:03] LABS: Potassium 3.2 mmol/L (3.5-5.1)
[2021-08-23] MEDS: Potassium Chloride 20mEq/100mL 20 MEQ/100 ML IV.SOLN. 50 MEQ IV BOLUS ×2 (21:42→23:31)
[2021-08-23] MEDS: 0.9% Saline Lock 10 ML Syringe IV (21:42)
[2021-08-23] MEDS: BENZOCAINE/MENTHOL 1 LOZENGE MUCOUS MEM (23:30)
[2021-08-24] VITALS (13 sets, daily range): BP systolic 121–157; BP diastolic 64–83; PULSE 71–97; RESP 16–18; TEMP 36.3–36.8; O2SAT 94–98
[2021-08-24 00:16] LABS: Bedside Glucose 136 mg/dL (70-110)
[2021-08-24] MEDS: MENTHOL 226.8 GM JAR 1 APPLIC TOPICAL (05:31)
[2021-08-24] MEDS: Heparin Injection (Vial) 5,000 UNIT/ML VIAL 5000 UNIT SC ×3 (05:31→21:01)
[2021-08-24] MEDS: BENZOCAINE/MENTHOL 1 LOZENGE MUCOUS MEM ×2 (05:34→21:01)
[2021-08-24 05:55] LABS: Bedside Glucose 122 mg/dL (70-110)
[2021-08-24 06:35] LABS: Absolute Lymphocyte Count 1.31 X10^3/uL (0.83-4.51); Absolute Neutrophil Count 6.1 X10^3/uL (2.0-7.7); Basophil# 0.05 X10^3/uL; Basophil% 0.6 % (0-1); Eosinophil# 0.13 X10^3/uL; Eosinophils% 1.4 % (0-5); Hematocrit 30.1 % (37-47); Hemoglobin 9.4 g/dL (12.0-15.0); Lymphocyte # 1.31 X10^3/ul (0.83-4.51); Lymphocyte % 14.6 % (19-41); Mean Corp Hgb Conc 31.2 g/dL (32-36); Mean Corpuscular Hgb 24.3 pg (27.0-32.0); Mean Corpuscular Volume 77.8 fL (81-99); Mean Platelet Vol. 10.6 fl (6.2-12.0); Monocyte# 1.11 X10^3/uL; Monocyte% 12.3 % (0-10); NRBC Flagged by Analyzer 0 % (0-5); Neutrophil # 6.07 X10^3/uL (2.7-7.7); Neutrophil % 67.5 % (47-70); Platelet Count 430 K/mm3 (150-450); Red Blood Count 3.87 M/mm3 (4.2-5.4)
[2021-08-24 07:11] LABS: ALB/GLOB Ratio 0.6 RATIO (0.9-2.4); AST(SGOT) 10 U/L (15-37); Alanine Aminotransfer ALT/SGPT 10 U/L (13-56); Albumin, Serum 2.5 g/dL (3.2-5.0); Alkaline Phosphatase 69 U/L (45-117); Anion Gap 5 (5-15); BUN 32 mg/dL (7-18); BUN/Creat Ratio 27.6 RATIO (10-20); Calcium,Total 8.9 mg/dL (8.5-10.1); Chloride 102 mmol/L (98-107); Creatinine, Serum 1.16 mg/dL (0.55-1.02); EST Glomerular Filtration Rate 47 mL/min (>60); Est Glom Filt Rate - Afr Amer 57 mL/min (>60); Estimated Creatinine Clearance 30.62 ml/min; Globulin 4.5 g/dL (2.2-4.2); Glucose 110 mg/dL (74-106); Magnesium 1.8 mg/dL (1.6-2.6); Phosphorus 2.6 mg/dL (2.5-4.9); Sodium Level 139 mmol/L (136-145)
--- NOTE | 2021-08-24 07:57 | CT_ITS ---
STUDY: CT ABDOMEN AND PELVIS WITHOUT CONTRAST REASON FOR EXAM: Female, 86 years old. Extended ileus, PO contrast through NG tube RADIATION DOSAGE (If Supplied By Facility): CTDIvol = ( 7.87 ) mGy, DLP = ( 405.03 ) mGycm TECHNIQUE: Transaxial images were obtained from the dome of the diaphragm to the symphysis pubis with oral contrast, and without intravenous contrast. Sagittal and coronal images were reconstructed. Individualized dose optimization techniques were used for this CT. COMPARISON: Comparison is made with prior study dated 08/14/2021. FINDINGS: Minimal residual linear scarring at the lung bases. The previously seen right pleural effusion has cleared. Coronary artery calcification. Normal liver. The patient is status post cholecystectomy. Normal spleen. Normal pancreas. Normal bilateral adrenal glands. Normal right kidney. Normal left kidney. A normal gastric tube is seen within the stomach. Fluid in the oral contrast filled small bowel loops. Minimally dilated. Fecal material is seen within the colon to the level of the ostomy. Colostomy is seen in the left anterior abdominal wall. There is non-visualization of the appendix. There is diffuse atherosclerotic calcification of the abdominal aorta and its major visceral branches, without a demonstrated aneurysm. Normal inferior vena cava. Normal retroperitoneum. Normal urinary bladder. Normal abdominal wall. There are diffuse degenerative changes of the visualized lumbar spine. CT/Abdomen/Pel W ORAL Cont Only IMPRESSION: Mildly distended small bowel loops with fluid and oral contrast. Fecal material is seen in the colon to the level of the ostomy. Electronically Signed: Rodríguez Bauman MD at 11:30 EST , Service support ,
[2021-08-24] MEDS: Potassium Chloride 10mEq/100mL 10 MEQ/100 ML IV.SOLN. 100 MEQ IV BOLUS ×4 (08:17→12:52)
--- NOTE | 2021-08-24 08:37 | PCM.PN.SRG ---
Subjective Subjective Patient reports no changes overnight Objective Data Objective Data Vital Signs: Vital Signs Temp Pulse Resp BP Pulse Ox 97.3 F L 85 16 121/71 H 98 08/24/21 07:49 08/24/21 07:49 08/24/21 07:49 08/24/21 07:49 08/24/21 07:49 Oxygen Flow Rate (L/min) 1 Oxygen Delivery Method Room Air Weight: 158 lb 8.198 oz Body Mass Index (BMI) 26.9 Intake & Output: Intake and Output for Last 24 Hours 08/22/21 08/23/21 08/24/21 23:59 23:59 23:59 Intake Total 820 / 870 1864.93 / 1924.93 310 / 310 Output Total 7590 / 7590 2300 / 3200 1550 / 1550 Balance -6770 / -6720 -435.07 / -1275.07 -1240 / -1240 Lab / Micro Data Result Diagrams: 08/24/21 05:50 08/24/21 05:50 Labs: Laboratory Results - last 24 hr 08/23/21 11:27: POC Glucose 138 H 08/23/21 14:17: Potassium 3.2 L 08/23/21 23:38: POC Glucose 136 H 08/24/21 05:45: POC Glucose 122 H 08/24/21 05:50: WBC 9.0, RBC 3.87 L, Hgb 9.4 L, Hct 30.1 L, MCV 77.8 L, MCH 24.3 L, MCHC 31.2 L, RDW Std Deviation 51.0 H, RDW Coeff of Tom 18.0 H, Plt Count 430, MPV 10.6, Immature Gran % (Auto) 3.600 H, Neut % (Auto) 67.5, Lymph % (Auto) 14.6 L, [place] % (Auto) 12.3 H, Eos % (Auto) 1.4, Baso % (Auto) 0.6, Absolute Neuts (auto) 6.1, Absolute Lymphs (auto) 1.31, Nucleated RBC % 0 08/24/21 05:50: Sodium 139, Potassium 3.0 L, Chloride 102, Carbon Dioxide 32.0, Anion Gap 5, BUN 32 H, Creatinine 1.16 H, Estim Creat Clear Calc 30.62, Est GFR (MDRD) Af Amer 57 L, Est GFR (MDRD) Non-Af 47 L, BUN/Creatinine Ratio 27.6 H, Glucose 110 H, Calcium 8.9, Phosphorus 2.6, Magnesium 1.8, Total Bilirubin 0.30, AST 10 L, ALT 10 L, Alkaline Phosphatase 69, Total Protein 7.0, Albumin 2.5 L, Globulin 4.5 H, Albumin/Globulin Ratio 0.6 L Physical Exam Const no apparent distress Cardio regular rate and regular rhythm GI soft to palpation and non-tender Assessment & Plan Assessment/Plan (1) Postoperative ileus: PLAN: Patient has ongoing postoperative ileus likely due to carcinomatosis. I did digitize her stoma again today and is patent. There was some report of some stool overnight and her NG output has decreased and cleared up significantly. I will order another p.o. contrast CT today to ensure that the dilation is decreasing before considering starting a diet. Continue TPN at this time. Replace hypokalemia. Continue to diurese. Nehemias Pan MD Pager: [facility] [address] [place] [address], [address] [place] [address] Office:
[2021-08-24] MEDS: Ondansetron 4 MG/2 ML Vial IV (08:39)
[2021-08-24] MEDS: Morphine 2 MG/ML Syringe IV (08:39)
[2021-08-24] MEDS: Furosemide 40 MG/4 ML Vial IV (08:44)
[2021-08-24 12:25] LABS: Bedside Glucose 127 mg/dL (70-110)
--- NOTE | 2021-08-24 12:35 | PN.HOSP_ITS ---
Subjective Subjective Patient seen and examined. She had no active complaints today and had an uneventful night. Review of systems otherwise negative. She is due for CAT scan of the abdomen today. She has had minimal output from her colostomy bag. She has remained hemodynamically stable. Potassium remains low at 3. REview of systems otherwise negative. Objective Data Objective Data Vital Signs: Vital Signs Temp Pulse Resp BP Pulse Ox 97.5 F L 84 16 130/83 H 95 08/24/21 11:28 08/24/21 11:28 08/24/21 11:28 08/24/21 11:28 08/24/21 11:56 Oxygen Flow Rate (L/min) 1 Oxygen Delivery Method Room Air Weight: 158 lb 8.198 oz Body Mass Index (BMI) 26.9 Intake & Output: Intake and Output for Last 24 Hours 08/22/21 08/23/21 08/24/21 23:59 23:59 23:59 Intake Total 820 / 870 1864.93 / 1924.93 1916.6 / 1916.6 Output Total 7590 / 7590 2300 / 3200 2300 / 2300 Balance -6770 / -6720 -435.07 / -1275.07 -383.4 / -383.4 Lab / Micro Data Result Diagrams: 08/24/21 05:50 08/24/21 05:50 Labs: Laboratory Results - last 24 hr 08/23/21 14:17: Potassium 3.2 L 08/23/21 23:38: POC Glucose 136 H 08/24/21 05:45: POC Glucose 122 H 08/24/21 05:50: WBC 9.0, RBC 3.87 L, Hgb 9.4 L, Hct 30.1 L, MCV 77.8 L, MCH 24.3 L, MCHC 31.2 L, RDW Std Deviation 51.0 H, RDW Coeff of Tom 18.0 H, Plt Count 430, MPV 10.6, Immature Gran % (Auto) 3.600 H, Neut % (Auto) 67.5, Lymph % (Auto) 14.6 L, [place] % (Auto) 12.3 H, Eos % (Auto) 1.4, Baso % (Auto) 0.6, Absolute Neuts (auto) 6.1, Absolute Lymphs (auto) 1.31, Nucleated RBC % 0 08/24/21 05:50: Sodium 139, Potassium 3.0 L, Chloride 102, Carbon Dioxide 32.0, Anion Gap 5, BUN 32 H, Creatinine 1.16 H, Estim Creat Clear Calc 30.62, Est GFR (MDRD) Af Amer 57 L, Est GFR (MDRD) Non-Af 47 L, BUN/Creatinine Ratio 27.6 H, Glucose 110 H, Calcium 8.9, Phosphorus 2.6, Magnesium 1.8, Total Bilirubin 0.30, AST 10 L, ALT 10 L, Alkaline Phosphatase 69, Total Protein 7.0, Albumin 2.5 L, Globulin 4.5 H, Albumin/Globulin Ratio 0.6 L 08/24/21 11:26: POC Glucose 127 H Radiography Diagnostic Testing: Radiology Impression Abdomen CT 08/24/21 07:57 IMPRESSION: Mildly distended small bowel loops with fluid and oral contrast. Fecal material is seen in the colon to the level of the ostomy. Electronically Signed: Rodríguez Bauman MD at 11:30 EST , Service support , Physical Exam Narrative Const alert, oriented x3 and no apparent distress Exam Limitations: no limitations HEENT head/scalp atraumatic and oropharynx normal Head and Scalp: normocephalic Eyes PERRL, EOMs intact bilaterally and conjunctivae normal Neck no lymphadenopathy Resp normal respiratory effort, no retractions, no use of accessory muscles and clear to auscultation bilaterally Cardio regular rate, regular rhythm, S1 normal heart sound, S2 normal heart sound and no murmurs GI normal to inspection, nondistended, normoactive bowel sounds GI Narrative: surgical site healing well, colostomy bag has scant stool. has NG tube in place draining bilious fluid. minimal bowel sounds Extremity normal to inspection, full ROM and no clubbing, cyanosis or edema Peripheral Pulses: Yes pulses 2+ throughout Skin no rashes or lesions noted Neuro oriented x3, CN's II-XII intact bilaterally and moves all extremities Sensorium / Orientation: awake and alert Psych affect normal Assessment & Plan Assessment/Plan (1) Status post abdominal surgery, follow-up exam: (2) Carcinomatosis: (3) History of colon cancer: (4) Bowel obstruction: QUALIFIERS: Intestinal obstruction type: unspecified Intestinal obstruction extent: unspecified extent Qualified Code(s): K56.609 - Unspecified intestinal obstruction, unspecified as to partial versus complete obstruction PLAN: #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 Today is POD 15 * Now complicated by persistent ileus. General surgery on board. * Has an NG tube inserted which is draining bilious fluid. Now back on ice chips. * now on TPN; nutrition on board * On IV PPI * CT of the abdomen showed a showed mildly distended small bowel loops with fluid and oral contrast with fecal matter seen in the colon to the level of the ostomy #Hypokalemia: Potassium is 3.0. Will replace aggressively and trend. #CAD s/p CABG x3, aspirin on hold. On statin and losartan which also on hold. #Hypertension: On losartan #Hyperlipidemia: On statin. #History of carotid disease: On aspirin. #Hypothyroidism: On Synthroid #History of colon cancer * S/p partial colectomy in March 2021 at [facility]. now had a synchronous lesion resulting in the sigmoidectomy as noted above. * On Keytruda on outpatient basis. * laparotomy findings as above. Oncology on board. 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 * oncology on board. * #History of TIA: On aspirin and statin as well #Anxiety: On Ativan as needed #GERD: On famotidine DVT prophylaxis: heparin Charges/Coding Visit Charges Inpatient E&M: 47169 Subs Hosp L2
--- NOTE | 2021-08-24 14:25 | RAD_ITS ---
EXAM: XR ABDOMEN, 1 VIEW CLINICAL INDICATION: follow up contrast from CT TECHNIQUE: Frontal supine view of the abdomen/pelvis. This report was created using [employer] report generation technology. COMPARISON: 08/21/2021 FINDINGS: LOWER THORAX: No acute pathology. GASTROINTESTINAL TRACT: Abnormally dilated small bowel loops. Differential includes small bowel obstruction or ileus. There is a left lower quadrant ostomy noted. ORGANS: Unremarkable as visualized. No organomegaly. No abnormal calcifications. BONES/JOINTS: Degenerative findings in the lumbar spine. SOFT TISSUES: No acute pathology. RAD/Abdomen Single View IMPRESSION: Abnormally dilated small bowel loops. Differential includes small bowel obstruction or ileus. Electronically Signed: Loyd Joshua MD at 21:43 EST , Service support ,
--- NOTE | 2021-08-24 15:52 | PN_ITS ---
Progress Note Patient still not having bowel output. Discussed with Dr Glass and he met with the patient as well. The consensus is that there hasnt been much improvement and I offered her operation to try to see if there is an obstructed segment of small bowel and I offered her palliative PEG placement for drainage and hospice care. She would like to pursue PEG and hospice. I will consult hospice and add the patient on tomorrow for palliative PEG tube I explained endoscopy in detail to the patient. I explained the risks including but not limited to stroke or heart attack with anesthesia, perforation of the GI tract, bleeding, infection. I explained that any of these could necessitate further emergency surgery. The patient understands and all questions were answered sufficiently. The patient wishes to proceed with procedure. Nehemias Pan MD Pager: [facility] [address] [place] [address], [address] [place] [address] Office:
--- NOTE | 2021-08-24 17:12 | NURSING ---
talked the hospice nurse. update given as informed by Dr. Pan. aware hospice will reach out to pt/son and will touch base with unit nurse on Peg placement time and appropriateness for IPU
[2021-08-24 17:35] LABS: Bedside Glucose 124 mg/dL (70-110)
[2021-08-25] VITALS (12 sets, daily range): BP systolic 135–165; BP diastolic 64–90; PULSE 81–98; RESP 16–18; TEMP 36.3–37.1; O2SAT 92–99; BMI 25.0
[2021-08-25 00:56] LABS: Bedside Glucose 117 mg/dL (70-110)
[2021-08-25 05:46] LABS: Bedside Glucose 125 mg/dL (70-110)
--- NOTE | 2021-08-25 05:59 | ONC.PN.INPT ---
Subjective Subjective Patient seen last evening. Has recurrent obstruction. Has not been able to have NG removed. No nausea but nasal passages and throat irritated. Vital Signs Temperature 98.0 F 08/25/21 05:15 Temperature Source Oral 08/25/21 05:15 Pulse Rate 83 08/25/21 05:15 Pulse Strength Normal (2+) 08/19/21 11:03 Respiratory Rate 16 08/25/21 05:15 Respiratory Effort Non-Labored 08/24/21 21:00 Respiratory Depth Normal 08/24/21 15:29 Respiratory Pattern Normal 08/24/21 15:29 Blood Pressure 139/64 H 08/25/21 05:15 Blood Pressure Mean 89 08/25/21 05:15 Blood Pressure Source Monitor 08/25/21 05:15 Blood Pressure Position Semi-Fowlers 08/25/21 05:15 Blood Pressure Location Left Forearm 08/25/21 05:15 Baseline BP 165/68 08/09/21 20:11 Pulse Ox 94 08/25/21 05:15 Oxygen Delivery Method Room Air 08/25/21 05:15 Oxygen Flow Rate (L/min) 1 08/11/21 20:22 Fraction of Inspired Oxygen (FIO2) 2 08/10/21 08:10 Laboratory Results - last 24 hr 08/24/21 05:50: WBC 9.0, RBC 3.87 L, Hgb 9.4 L, Hct 30.1 L, MCV 77.8 L, MCH 24.3 L, MCHC 31.2 L, RDW Std Deviation 51.0 H, RDW Coeff of Tom 18.0 H, Plt Count 430, MPV 10.6, Immature Gran % (Auto) 3.600 H, Neut % (Auto) 67.5, Lymph % (Auto) 14.6 L, [place] % (Auto) 12.3 H, Eos % (Auto) 1.4, Baso % (Auto) 0.6, Absolute Neuts (auto) 6.1, Absolute Lymphs (auto) 1.31, Nucleated RBC % 0 08/24/21 05:50: Sodium 139, Potassium 3.0 L, Chloride 102, Carbon Dioxide 32.0, Anion Gap 5, BUN 32 H, Creatinine 1.16 H, Estim Creat Clear Calc 30.62, Est GFR (MDRD) Af Amer 57 L, Est GFR (MDRD) Non-Af 47 L, BUN/Creatinine Ratio 27.6 H, Glucose 110 H, Calcium 8.9, Phosphorus 2.6, Magnesium 1.8, Total Bilirubin 0.30, AST 10 L, ALT 10 L, Alkaline Phosphatase 69, Total Protein 7.0, Albumin 2.5 L, Globulin 4.5 H, Albumin/Globulin Ratio 0.6 L 08/24/21 11:26: POC Glucose 127 H 08/24/21 17:24: POC Glucose 124 H 08/25/21 00:48: POC Glucose 117 H 08/25/21 05:25: POC Glucose 125 H Diagnostic Data Therapeutic Barium Enema Intussusception 08/07/21 13:02 IMPRESSION: Findings suggest the obstruction in the distal transverse colon at the level of splenic flexure. The patient could not tolerate anymore pressure at this time. Electronically Signed: Rodríguez Bauman MD at 14:22 EDT , Service support , Abdomen X-Ray 08/09/21 06:00 IMPRESSION: Air-fluid level with contrast is seen within a distended large bowel loops most likely representing the transverse colon. Electronically Signed: Rodríguez Bauman MD at 8:37 EDT , Service support , Abdomen/Pelvis CT 08/14/21 13:03 IMPRESSION: Status post recent resection of the sigmoid colon with creation of a left lower quadrant colostomy with a probable adynamic ileus, small amount of ascites, and tiny right pleural effusion with right lower lobe atelectasis. Electronically Signed: Aiden Sousa MD at 16:54 EST Tel , Service support , Small Bowel X-Ray 08/17/21 08:05 IMPRESSION: Delayed small bowel transit of the GASTROGRAFIN. At 215 minutes, contrast is seen within the ostomy in the left midabdomen. Electronically Signed: Rodríguez Bauman MD at 13:58 EST , Service support , Abdomen CT 08/24/21 07:57 IMPRESSION: Mildly distended small bowel loops with fluid and oral contrast. Fecal material is seen in the colon to the level of the ostomy. Electronically Signed: Rodríguez Bauman MD at 11:30 EST , Service support , KUB X-Ray 08/24/21 14:25 IMPRESSION: Abnormally dilated small bowel loops. Differential includes small bowel obstruction or ileus. Electronically Signed: Loyd Joshua MD at 21:43 EST , Service support , Assessment & Plan Assessment/Plan (1) Bowel obstruction: QUALIFIERS: Intestinal obstruction extent: unspecified extent Intestinal obstruction type: unspecified Qualified Code(s): K56.609 - Unspecified intestinal obstruction, unspecified as to partial versus complete obstruction PLAN: Patient has recurrent bowel obstruction in the setting of metastatic adenocarcinoma of the colon. PS declining and malnourished so no further systemic, tumor directed therapy indicated. Hospice is appropriate as she does not wish to undergo surgery in an attempt to relieve bowel obstruction but favors palliative approach with placement of venting PEG tube so she may go home under home hospice care. I agree with this plan.
[2021-08-25 06:04] LABS: Absolute Lymphocyte Count 1.36 X10^3/uL (0.83-4.51); Basophil# 0.07 X10^3/uL; Basophil% 0.8 % (0-1); Eosinophil# 0.13 X10^3/uL; Eosinophils% 1.5 % (0-5); Hematocrit 28.4 % (37-47); Lymphocyte # 1.36 X10^3/ul (0.83-4.51); Lymphocyte % 15.3 % (19-41); Mean Corp Hgb Conc 31.7 g/dL (32-36); Mean Corpuscular Hgb 24.4 pg (27.0-32.0); Mean Platelet Vol. 10.6 fl (6.2-12.0); Monocyte# 1.04 X10^3/uL; Monocyte% 11.7 % (0-10); NRBC Flagged by Analyzer 0 % (0-5); Neutrophil # 5.95 X10^3/uL (2.7-7.7); Platelet Count 398 K/mm3 (150-450); RBC Distribution Width CV 17.9 % (11.6-14.6); RBC Distribution Width SD 49.7 fl (35.1-43.9); Red Blood Count 3.69 M/mm3 (4.2-5.4); White Blood Count 8.9 K/mm3 (4.4-11.0)
[2021-08-25 06:20] LABS: Partial Thromboplast Time 35.3 Seconds (24.1-36.2)
[2021-08-25 06:59] LABS: ALB/GLOB Ratio 0.5 RATIO (0.9-2.4); AST(SGOT) 8 U/L (15-37); Alanine Aminotransfer ALT/SGPT 9 U/L (13-56); Albumin, Serum 2.3 g/dL (3.2-5.0); Alkaline Phosphatase 59 U/L (45-117); Anion Gap 8 (5-15); BUN 40 mg/dL (7-18); BUN/Creat Ratio 42.5 RATIO (10-20); Calcium,Total 8.4 mg/dL (8.5-10.1); Chloride 98 mmol/L (98-107); Creatinine, Serum 0.94 mg/dL (0.55-1.02); EST Glomerular Filtration Rate 60 mL/min (>60); Est Glom Filt Rate - Afr Amer 73 mL/min (>60); Estimated Creatinine Clearance 37.78 ml/min; Globulin 4.3 g/dL (2.2-4.2); Glucose 114 mg/dL (74-106); Phosphorus 2.8 mg/dL (2.5-4.9); Potassium 3.4 mmol/L (3.5-5.1); Protein, Total 6.6 g/dL (6.4-8.2); Sodium Level 137 mmol/L (136-145)
--- NOTE | 2021-08-25 08:05 | NURSING ---
pt states that she is fully vaccinated against COVID-19, states she completed her series with the Moderna Vaccine
--- NOTE | 2021-08-25 10:34 | WOUNDNOTE ---
Colostomy appliance removed. patient had small amount of unformed stool in the appliance. abdomen slightly distended. stoma remains well budded and moist. peristomal skin is intact. cleansed with warm water. pat dry. applied a new 2 piece flat Arvind appliance with a small amount of stoma paste. patient states pain has improved. NG tube remains in place. patient is scheduled for PEG tube placement later today. Plan is for patient to go home with Hospice. script on the front of the chart for ostomy supplies. patient has a few appliances in the room to take home as well. pt denies further needs at this time.
[2021-08-25] MEDS: Potassium Chloride 10mEq/100mL 10 MEQ/100 ML IV.SOLN. 100 MEQ IV BOLUS ×2 (10:51→11:58)
--- NOTE | 2021-08-25 11:18 | CASEMGMT ---
Addendum entered by Kayla Montemayor 08/25/21 13:45: FERNANDO updated that pt's son had questions regarding Hospice and insurance. SW in to speak with pt and pt's son Silver. Silver asked what pt's insurance will cover for Hospice. SW informed Silver that this worker is not sure, that would be a question for Hospice. SW informed Silver that Hospice will likely go over that information tomorrow in their meeting. Silver states understanding. SW checked in with pt and Silver, asked how they are coping with Hospice discussion. Silver states that he is ok with it and he thinks pt is too. Pt states she is ok with it. Silver states it is way to get pt home and that is what they want for pt. SW offered support to pt and Silver. Pt and Silver denied additional needs or concerns at this time. Original Note: Social Work Note SW updated that pt's plan is to return home with Hospice. FERNANDO placed a call to [facility] and spoke with Kari in admissions. Kari states that they have a meeting arranged tomorrow at 10:00am at [facility] with pt and pt's family. FERNANDO updated RN. Plan: Hospice to meet with pt and pt's family tomorrow at 10:00am Kayla Montemayor ARCHITECTURAL PRACTICE MANAGER, [address] [employer]
--- NOTE | 2021-08-25 12:36 | PN.HOSP_ITS ---
Subjective Subjective Patient seen and examined. She had an uneventful night and has no complaints this morning. Review of systems otherwise negative. She says she could hear her bowels rumbling this morning. She remains on TPN and also has the NG tube in place still. She did complain of some sore throat on further questioning. She has remained hemodynamically stable. Objective Data Objective Data Vital Signs: Vital Signs Temp Pulse Resp BP Pulse Ox 98.8 F 89 18 143/67 H 92 08/25/21 08:08 08/25/21 08:18 08/25/21 08:08 08/25/21 08:08 08/25/21 08:08 Oxygen Flow Rate (L/min) 1 Oxygen Delivery Method Room Air Weight: 145 lb 15.136 oz Body Mass Index (BMI) 26.9 Intake & Output: Intake and Output for Last 24 Hours 08/23/21 08/24/21 08/25/21 23:59 23:59 23:59 Intake Total 1864.93 / 1924.93 2347.4 / 2377.4 319 / 319 Output Total 2300 / 3200 3100 / 3100 175 / 175 Balance -435.07 / -1275.07 -752.6 / -722.6 144 / 144 Lab / Micro Data Result Diagrams: 08/25/21 05:45 08/25/21 05:45 Labs: Laboratory Results - last 24 hr 08/24/21 17:24: POC Glucose 124 H 08/25/21 00:48: POC Glucose 117 H 08/25/21 05:25: POC Glucose 125 H 08/25/21 05:45: WBC 8.9, RBC 3.69 L, Hgb 9.0 L, Hct 28.4 L, MCV 77.0 L, MCH 24.4 L, MCHC 31.7 L, RDW Std Deviation 49.7 H, RDW Coeff of Tom 17.9 H, Plt Count 398, MPV 10.6, Immature Gran % (Auto) 3.700 H, Neut % (Auto) 67.0, Lymph % (Auto) 15.3 L, [place] % (Auto) 11.7 H, Eos % (Auto) 1.5, Baso % (Auto) 0.8, Absolute Neuts (auto) 6.0, Absolute Lymphs (auto) 1.36, Nucleated RBC % 0 08/25/21 05:45: Sodium 137, Potassium 3.4 L, Chloride 98, Carbon Dioxide 31.0, Anion Gap 8, BUN 40 H, Creatinine 0.94, Estim Creat Clear Calc 37.78, Est GFR (MDRD) Af Amer 73, Est GFR (MDRD) Non-Af 60, BUN/Creatinine Ratio 42.5 H, Glucose 114 H, Calcium 8.4 L, Phosphorus 2.8, Magnesium 2.0, Total Bilirubin 0.20, AST 8 L, ALT 9 L, Alkaline Phosphatase 59, Total Protein 6.6, Albumin 2.3 L, Globulin 4.3 H, Albumin/Globulin Ratio 0.5 L, TSH 52.40 H 08/25/21 05:45: APTT 35.3 Radiography Diagnostic Testing: Radiology Impression KUB X-Ray 08/24/21 14:25 IMPRESSION: Abnormally dilated small bowel loops. Differential includes small bowel obstruction or ileus. Electronically Signed: Loyd Joshua MD at 21:43 EST , Service support , Physical Exam Narrative Const alert, oriented x3 and no apparent distress Orientation / Consciousness: lethargic Exam Limitations: no limitations HEENT head/scalp atraumatic and oropharynx normal Eyes PERRL, EOMs intact bilaterally and conjunctivae normal Neck no lymphadenopathy Resp normal respiratory effort, no retractions, no use of accessory muscles and clear to auscultation bilaterally Cardio regular rate, regular rhythm, S1 normal heart sound, S2 normal heart sound and no murmurs GI normal to inspection, nondistended, normoactive bowel sounds GI Narrative: surgical site healing well, colostomy bag has scant stool. has NG tube in place draining bilious fluid. minimal bowel sounds Extremity normal to inspection, full ROM and no clubbing, cyanosis or edema Skin no rashes or lesions noted Neuro oriented x3, CN's II-XII intact bilaterally and moves all extremities Sensorium / Orientation: awake and alert Psych affect normal Assessment & Plan Assessment/Plan (1) Status post abdominal surgery, follow-up exam: (2) Carcinomatosis: (3) History of colon cancer: (4) Bowel obstruction: QUALIFIERS: Intestinal obstruction type: unspecified Intestinal obstruction extent: unspecified extent Qualified Code(s): K56.609 - Unspecified intestinal obstruction, unspecified as to partial versus complete obstruction PLAN: #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 Today is POD 15 * Now complicated by persistent ileus. General surgery on board. * Has an NG tube inserted which is draining bilious fluid. on ice chips. * now on TPN; nutrition on board * On IV PPI * CT of the abdomen showed a showed mildly distended small bowel loops with fluid and oral contrast with fecal matter seen in the colon to the level of the ostomy #Hypokalemia: Potassium is 3.4 today. Will replace and trend. #CAD s/p CABG x3, aspirin on hold. On statin and losartan which also on hold. #Hypertension: On losartan #Hyperlipidemia: On statin. #History of carotid disease: On aspirin. #Hypothyroidism: On Synthroid #History of colon cancer * S/p partial colectomy in March 2021 at [facility]. now had a synchronous lesion resulting in the sigmoidectomy as noted above. * On Keytruda on outpatient basis. * laparotomy findings as above. Oncology on board. 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 * oncology on board. * #History of TIA: On aspirin and statin as well #Anxiety: On Ativan as needed #GERD: On famotidine DVT prophylaxis: heparin Disposition: I was informed that patient was thinking about hospice after meeting with oncologist yesterday. Patient tells me that her sons are meeting with oncology today to determine the next course of action. Charges/Coding Visit Charges Inpatient E&M: 17704 Subs Hosp L2
--- NOTE | 2021-08-25 16:06 | DS.PCM_ITS ---
Providers Date of Admission: 08/07/21 Primary Care Physician: Dr. 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 Routine Comment: Reason for Consult:: NEW COLOSTOMY 08/10/21 14:37 Consult: Oncology/Hematology Routine Consulting Provider: Yang Glass Reason for Consult: metastatic colon cancer EMERGENT Consult: No MD Notified: Yes Date Notified: 08/10/21 Time Notified: 14:37 Method of Notification: Text 08/11/21 07:17 Consult: Onc/Wound/instant printer operator Routine Comment: Reason for Consult:: new stoma 08/24/21 16:01 Consult: Hospice / Palliative Care Routine Consulting Provider: [facility] Reason for Consult: hospice referral possible ipu EMERGENT Consult: No MD Notified: Yes Date Notified: 08/24/21 Time Notified: 16:02 Method of Notification: Answering Service Reason For Visit: CONSTIPATION Diagnosis Discharge Diagnosis (1) Status post abdominal surgery, follow-up exam: Status: Acute Code(s): Z09 - Encounter for follow-up examination after completed treatment for conditions other than malignant neoplasm (2) Carcinomatosis: Status: Acute Code(s): 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 - Disseminated malignant neoplasm, unspecified (3) History of colon cancer: Status: Acute Code(s): Z85.038 - Personal history of other malignant neoplasm of large intestine (4) Bowel obstruction: Status: Acute Code(s): K56.609 - Unspecified intestinal obstruction, unspecified as to partial versus complete obstruction Qualifiers: Intestinal obstruction type: unspecified Intestinal obstruction extent: unspecified extent Qualified Code(s): K56.609 - Unspecified intestinal obstruction, unspecified as to partial versus complete obstruction Medications at Discharge Home Medications pantoprazole 40 mg PO DAILY 10/25/16 rosuvastatin 20 mg tablet 20 mg PO QHS 02/11/18 doxycycline hyclate 20 mg tablet 20 mg PO BID PRN tab 01/20/19 losartan 50 mg tablet 50 mg PO DAILY 11/09/19 lorazepam 0.5 mg tablet 0.5 mg PO BID PRN tab 06/09/20 ascorbic acid (vitamin C) 500 mg tablet 500 mg PO DAILY 12/07/20 levothyroxine 75 mcg tablet 75 mcg PO MOTUWETHFRSA 12/07/20 acetaminophen 500 mg PO DAILY PRN 08/07/21 aspirin [Aspirin Low Dose] 81 mg PO DAILY 08/07/21 diphenhydramine-acetaminophen [Acetaminophen PM] 1 tab PO QHS PRN 08/07/21 docusate sodium 300 mg PO DAILY 08/07/21 Hospital Course Summary of Care Provided Hospital Course: He was admitted and found to have obstruction to the sigmoid colon. There was metastatic colon carcinoma from the transverse colon. This area of sigmoid colon was removed and end colostomy was fashioned. The patient had several times where she was tolerating clears and then once her diet was advanced she started throwing up and several small bowel follow-through as were obtained over the following 2 weeks. The small bowel follow-through showed clearance of contrast but she was not able to tolerate a diet and continue to have nausea and vomiting. Repeat CT scan showed persistent partial obstruction. I offered the patient surgery versus palliative PEG tube and hospice and she chose PEG tube and hospice. The final day of her hospitalization PEG tube was placed to gravity drainage she was started on clear liquid diets for comfort. She will be sent home with home hospice. Weight / BMI Weight Weight: 145 lb 15.136 oz Body Mass Index (BMI) 25.0 ABG / Lab / Microbiology Data Result Diagrams: 08/25/21 05:45 08/25/21 05:45 Laboratory: Laboratory Results - last 24 hr 08/24/21 17:24: POC Glucose 124 H 08/25/21 00:48: POC Glucose 117 H 08/25/21 05:25: POC Glucose 125 H 08/25/21 05:45: WBC 8.9, RBC 3.69 L, Hgb 9.0 L, Hct 28.4 L, MCV 77.0 L, MCH 24.4 L, MCHC 31.7 L, RDW Std Deviation 49.7 H, RDW Coeff of Tom 17.9 H, Plt Count 398, MPV 10.6, Immature Gran % (Auto) 3.700 H, Neut % (Auto) 67.0, Lymph % (Auto) 15.3 L, [place] % (Auto) 11.7 H, Eos % (Auto) 1.5, Baso % (Auto) 0.8, Absolute Neuts (auto) 6.0, Absolute Lymphs (auto) 1.36, Nucleated RBC % 0 08/25/21 05:45: Sodium 137, Potassium 3.4 L, Chloride 98, Carbon Dioxide 31.0, Anion Gap 8, BUN 40 H, Creatinine 0.94, Estim Creat Clear Calc 37.78, Est GFR (MDRD) Af Amer 73, Est GFR (MDRD) Non-Af 60, BUN/Creatinine Ratio 42.5 H, Glucose 114 H, Calcium 8.4 L, Phosphorus 2.8, Magnesium 2.0, Total Bilirubin 0.20, AST 8 L, ALT 9 L, Alkaline Phosphatase 59, Total Protein 6.6, Albumin 2.3 L, Globulin 4.3 H, Albumin/Globulin Ratio 0.5 L, TSH 52.40 H 08/25/21 05:45: APTT 35.3 Radiography Diagnostic Testing: Radiology Impression KUB X-Ray 08/24/21 14:25 IMPRESSION: Abnormally dilated small bowel loops. Differential includes small bowel obstruction or ileus. Electronically Signed: Loyd Joshua MD at 21:43 EST , Service support , D/C Instructions Discharge Diet: - Discharge Activity: Return to Normal Activity Change Dressing in: 1 day Additional Dressing/Incision Instructions: G tube to gravity drain Meaningful Use Info Meaningful Use Diagnoses (Choose all that apply): None applicable Discharge Plan Admission Admit Date/Time: 08/07/21 16:31 Attending Provider: Anna Casillas Primary Care Provider: Jamie Dickson Consulting Providers: Gabi Hopper ; Man Elias ; Paulette Dumas ; Ankita Elizabeth ; Nancy Landeros ; Venus Cohn NP ; Yang Glass Discharge Orders/Prescriptions Prescriptions: Continued rosuvastatin [Crestor] 20 mg tablet 20 mg PO QHS RF: 0 doxycycline hyclate 20 mg tablet 20 mg PO BID PRN (Reason: rosacea) RF: 0 lorazepam 0.5 mg tablet 0.5 mg PO BID PRN (Reason: Anxiety) RF: 0 losartan [Cozaar] 50 mg tablet 50 mg PO DAILY RF: 0 ascorbic acid (vitamin C) 500 mg tablet 500 mg PO DAILY RF: 0 pantoprazole 40 MG tablet 40 mg PO DAILY RF: 0 levothyroxine 75 mcg tablet 75 mcg PO MOTUWETHFRSA RF: 0 aspirin [Aspirin Low Dose] 81 mg Tablet,Delayed Release (Dr/Ec) 81 mg PO DAILY RF: 0 acetaminophen 500 mg Tablet 500 mg PO DAILY PRN (Reason: Pain) RF: 0 docusate sodium 100 mg Capsule 300 mg PO DAILY RF: 0 diphenhydramine-acetaminophen [Acetaminophen PM] 25-500 mg Tablet 1 tab PO QHS PRN (Reason: Sleep) RF: 0 Discontinued hydrocortisone 10 mg tablet 5 mg PO DAILY RF: 0 Keytruda 1 dose IV BOLUS CONT RF: 0 Referrals / Follow Up: Jamie Dickson MD [Primary Care Provider] - Disposition Disposition (needs filled in before D/C Order can be placed): Hospice in Home
--- NOTE | 2021-08-25 16:12 | OP.EGD_ITS ---
Patient Name: Shelby Bernal Procedure Date: 08/25/2021 3:35 PM Date of : 1935 Age: 86 Procedure: Upper GI endoscopy Indications: For palliative treatment of stenosing neoplasm of the colon Providers: Nehemias Pan MD Medicines: Monitored Anesthesia Care Patient Profile: This is an 86 year old female. Refer to note in patient chart for documentation of history and physical. Complications: No immediate complications. Procedure: Pre-Anesthesia Assessment: - Prior to the procedure, a History and Physical was performed, and patient medications and allergies were reviewed. The patient's tolerance of previous anesthesia was also reviewed. The risks and benefits of the procedure and the sedation options and risks were discussed with the patient. All questions were answered, and informed consent was obtained. Prior Anticoagulants: The patient has taken no previous anticoagulant or antiplatelet agents. After reviewing the risks and benefits, the patient was deemed in satisfactory condition to undergo the procedure. After obtaining informed consent, the endoscope was passed under direct vision. Throughout the procedure, the patient's blood pressure, pulse, and oxygen saturations were monitored continuously. The Endoscope was introduced through the mouth, and advanced to the third part of duodenum. The upper GI endoscopy was accomplished without difficulty. The patient tolerated the procedure well. Scope In: 3:54:01 PM Scope Out: 4:03:18 PM Total Procedure Duration Time 0 hours 9 minutes 17 seconds Findings: The patient was placed in the supine position for PEG placement. The stomach was insufflated to appose gastric and abdominal pino. A site was located in the body of the stomach with excellent manual external pressure for placement. The abdominal wall was marked and prepped in a sterile manner. The area was anesthetized with 4 mL of 0.5% lidocaine. The trocar needle was introduced through the abdominal wall and into the stomach under direct endoscopic view. A snare was introduced through the endoscope and opened in the gastric lumen. The guide wire was passed through the trocar and into the open snare. The snare was closed around the guide wire. The endoscope and snare were removed, pulling the wire out through the mouth. A skin incision was made at the site of needle insertion. The externally removable 20 Fr EndoVive Safety gastrostomy tube was lubricated. The G-tube was tied to the guide wire and pulled through the mouth and into the stomach. The trocar needle was removed, and the gastrostomy tube was pulled out from the stomach through the skin. The external bumper was attached to the gastrostomy tube, and the tube was cut to remove the guide wire. The final position of the gastrostomy tube was confirmed by relook endoscopy, and skin marking noted to be 4 cm at the external bumper. The final tension and compression of the abdominal wall by the PEG tube and external bumper were checked and revealed that the bumper was loose and lightly touching the skin and that the PEG balloon was loose and lightly touching the stomach. The feeding tube was capped, and the tube site cleaned and dressed. Impression: - An externally removable PEG placement was successfully completed. - No specimens collected. Recommendation: - Return patient to [facility] for ongoing care. - Clear liquid diet. - Continue present medications. Procedure Code(s): --- Professional --- 34119, Esophagogastroduodenoscopy, flexible, transoral; with directed placement of percutaneous gastrostomy tube Diagnosis Code(s): --- Professional --- K31.89, Other diseases of stomach and duodenum D49.0, Neoplasm of unspecified behavior of digestive system CPT copyright 2017 [employer]. All rights reserved. The codes documented in this report are preliminary and upon vp of customer experience strategy review may be revised to meet current compliance requirements. Nehemias Pan MD 08/25/2021 4:12:20 PM This report has been signed electronically. Number of Addenda: 0 Note Initiated On: 08/25/2021 3:35 PM
--- NOTE | 2021-08-25 16:13 | OP.CCLET_ITS ---
08/25/2021 Jamie Dickson [address] [place] [address] Re : Upper GI endoscopy procedure for Shelby Gabe Dear Dr. Dickson This procedure was performed on Wednesday, August 25, 2021. My impressions and recommendations are as follows: Impressions : - An externally removable PEG placement was successfully completed. - No specimens collected. Recommendations : - Return patient to [facility] for ongoing care. - Clear liquid diet. - Continue present medications. My findings are described in the full procedure note, which is enclosed. If I can be of further assistance, please feel free to contact me at Doctor phone number(s): , Work: . Sincerely, Nehemias Pan MD 08/25/2021 4:12:20 PM This report has been signed electronically.
[2021-08-25] MEDS: Morphine 2 MG/ML Syringe IV (17:20)
[2021-08-25] MEDS: BENZOCAINE/MENTHOL 1 LOZENGE MUCOUS MEM (17:20)
[2021-08-25] MEDS: 0.9% Saline Lock 10 ML Syringe IV ×2 (17:21→17:28)
[2021-08-25] MEDS: Ondansetron 4 MG/2 ML Vial IV (17:28)
[2021-08-25] MEDS: Acetaminophen 325 MG Tablet 650 MG PO (19:48)
[2021-08-25] MEDS: LORazepam 0.5 MG Tablet PO (19:48)
[2021-08-25] MEDS: oxyCODONE 5 MG Tablet PO ×2 (19:49→23:31)
[2021-08-25] MEDS: MELATONIN 3 MG TABLET PO (20:11)
[2021-08-25] MEDS: Atorvastatin Calcium 40 MG Tablet PO (20:11)
[2021-08-25] MEDS: Heparin Injection (Vial) 5,000 UNIT/ML VIAL 5000 UNIT SC (20:12)
[2021-08-26] MEDS: Acetaminophen 325 MG Tablet 650 MG PO ×2 (02:03→10:05)
[2021-08-26 02:04] VITALS: BP 141/66; PULSE 83; RESP 18; TEMP 36.7; O2SAT 92
[2021-08-26] MEDS: oxyCODONE 5 MG Tablet PO ×3 (04:43→13:00)
[2021-08-26] MEDS: Levothyroxine 75 MCG Tablet PO (05:35)
[2021-08-26] MEDS: Heparin Injection (Vial) 5,000 UNIT/ML VIAL 5000 UNIT SC (05:35)
--- NOTE | 2021-08-26 08:39 | PN.SURG_ITS ---
Subjective Subjective Patient status post palliative PEG yesterday to gravity. Patient states she has little soreness at PEG site otherwise denies any abdominal pain. Objective Data Objective Data Vital Signs: Vital Signs Temp Pulse Resp BP Pulse Ox 98.1 F 83 18 141/66 H 92 08/26/21 02:04 08/26/21 02:04 08/26/21 02:04 08/26/21 02:04 08/26/21 02:04 Oxygen Flow Rate (L/min) 2 Oxygen Delivery Method Room Air Weight: 145 lb 15.136 oz Body Mass Index (BMI) 25.0 Intake & Output: Intake and Output for Last 24 Hours 08/24/21 08/25/21 08/26/21 23:59 23:59 23:59 Intake Total 2347.4 / 2377.4 1637.2 / 1957.2 649.5 / 649.5 Output Total 3100 / 3100 405 / 805 750 / 750 Balance -752.6 / -722.6 1232.2 / 1152.2 -100.5 / -100.5 Lab / Micro Data Result Diagrams: 08/25/21 05:45 08/25/21 05:45 Physical Exam Narrative Abdomen: Soft, mild distention, tender near PEG site, PEG site clean dry and intact, colostomy-pink with small amount of liquid stool, midline incision healing well Assessment & Plan Assessment/Plan (1) Postoperative ileus: PLAN: Patient palliative NG to gravity. Okay for patient to have milk. will DC with hospice today. Nehemias Pan MD Pager: [facility] [address] [place] [address], [address] [place] [address] Office:
--- NOTE | 2021-08-26 08:41 | EX.PCM.DISCH ---
Discharge Instructions Diet Discharge Diet: - (Recommend liquids and PRN comfort food) Dressing / Incision Additional Dressing/Incision Instructions:: G tube to gravity drain Follow Up Care Test Results: Test results from this visit will be discussed in further detail at your follow-up appointment, if applicable. Discharge Plan Admission Admit Date/Time: 08/07/21 16:31 Attending Provider: Anna Casillas Primary Care Provider: Jamie Dickson Consulting Providers: Gabi Hopper ; Man Elias ; Paulette Dumas ; Ankita Elizabeth ; Nancy Landeros ; Venus Cohn MANAGEMENT ADVISOR ; Yang Glass Discharge Orders/Prescriptions Prescriptions: Continued rosuvastatin [Crestor] 20 mg tablet 20 mg PO QHS RF: 0 doxycycline hyclate 20 mg tablet 20 mg PO BID PRN (Reason: rosacea) RF: 0 lorazepam 0.5 mg tablet 0.5 mg PO BID PRN (Reason: Anxiety) RF: 0 losartan [Cozaar] 50 mg tablet 50 mg PO DAILY RF: 0 ascorbic acid (vitamin C) 500 mg tablet 500 mg PO DAILY RF: 0 pantoprazole 40 MG tablet 40 mg PO DAILY RF: 0 levothyroxine 75 mcg tablet 75 mcg PO MOTUWETHFRSA RF: 0 aspirin [Aspirin Low Dose] 81 mg Tablet,Delayed Release (Dr/Ec) 81 mg PO DAILY RF: 0 acetaminophen 500 mg Tablet 500 mg PO DAILY PRN (Reason: Pain) RF: 0 docusate sodium 100 mg Capsule 300 mg PO DAILY RF: 0 diphenhydramine-acetaminophen [Acetaminophen PM] 25-500 mg Tablet 1 tab PO QHS PRN (Reason: Sleep) RF: 0 Discontinued hydrocortisone 10 mg tablet 5 mg PO DAILY RF: 0 Keytruda 1 dose IV BOLUS CONT RF: 0 Referrals / Follow Up: Jamie Dickson MD [Primary Care Provider] - Disposition Disposition (needs filled in before D/C Order can be placed): Hospice in Home
[2021-08-26] MEDS: Losartan Potassium 50 MG Tablet PO (09:13)
[2021-08-26] MEDS: Hydrocortisone 10 MG Tablet 5 MG PO (09:13)
[2021-08-26 09:24] VITALS: BP 154/67; PULSE 70; RESP 18; TEMP 36.6; O2SAT 97
--- NOTE | 2021-08-26 11:37 | PN.HOSP_ITS ---
Subjective Subjective Patient seen and examined. She had no active complaints today. Patient has decided to go home with hospice. NG tube has been removed. Review of systems otherwise negative. Objective Data Objective Data Vital Signs: Vital Signs Temp Pulse Resp BP Pulse Ox 98 F 70 18 154/67 H 97 08/26/21 09:24 08/26/21 09:24 08/26/21 09:24 08/26/21 09:24 08/26/21 09:24 Oxygen Flow Rate (L/min) 2 Oxygen Delivery Method Room Air Weight: 145 lb 15.136 oz Body Mass Index (BMI) 25.0 Intake & Output: Intake and Output for Last 24 Hours 08/24/21 08/25/21 08/26/21 23:59 23:59 23:59 Intake Total 2347.4 / 2377.4 1637.2 / 1957.2 759.5 / 759.5 Output Total 3100 / 3100 405 / 805 750 / 750 Balance -752.6 / -722.6 1232.2 / 1152.2 9.5 / 9.5 Lab / Micro Data Result Diagrams: 08/25/21 05:45 08/25/21 05:45 Physical Exam Narrative Const alert, oriented x3 and no apparent distress Orientation / Consciousness: lethargic Exam Limitations: no limitations HEENT head/scalp atraumatic and oropharynx normal Head and Scalp: normocephalic Eyes PERRL, EOMs intact bilaterally and conjunctivae normal Neck no lymphadenopathy Resp normal respiratory effort, no retractions, no use of accessory muscles and clear to auscultation bilaterally Cardio regular rate, regular rhythm, S1 normal heart sound, S2 normal heart sound and no murmurs GI normal to inspection, nondistended, normoactive bowel sounds GI Narrative: surgical site healing well, colostomy bag has scant stool. NG tube removed. minimal bowel sounds Extremity normal to inspection, full ROM and no clubbing, cyanosis or edema Skin no rashes or lesions noted Neuro oriented x3, CN's II-XII intact bilaterally and moves all extremities Sensorium / Orientation: awake and alert Psych affect normal Assessment & Plan Assessment/Plan (1) Status post abdominal surgery, follow-up exam: (2) Carcinomatosis: (3) History of colon cancer: (4) Bowel obstruction: QUALIFIERS: Intestinal obstruction type: unspecified Intestinal obstruction extent: unspecified extent Qualified Code(s): K56.609 - Unspecified intestinal obstruction, unspecified as to partial versus complete obstruction PLAN: #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 * Now complicated by persistent ileus. General surgery on board. * NG tube removed as patient has now opted to going home with home hospice * On IV PPI * CT of the abdomen showed a showed mildly distended small bowel loops with fluid and oral contrast with fecal matter seen in the colon to the level of the ostomy #Hypokalemia: resolved. #CAD s/p CABG x3, aspirin on hold. On statin and losartan which also on hold. #Hypertension: On losartan #Hyperlipidemia: On statin. #History of carotid disease: On aspirin. #Hypothyroidism: On Synthroid #History of colon cancer * S/p partial colectomy in March 2021 at [facility]. now had a synchronous lesion resulting in the sigmoidectomy as noted above. * On Keytruda on outpatient basis. * laparotomy findings as above. Oncology on board. 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 * oncology on board. * #History of TIA: On aspirin and statin as well #Anxiety: On Ativan as needed #GERD: On famotidine DVT prophylaxis: heparin Disposition: * DC home with home hospice today. * Patient given a script for PO oxycodone 5mg every 6 hours as needed for a total of 20 tabs for 5 days. No red flags seen. Charges/Coding Visit Charges Inpatient E&M: [address] [facility] L2
--- NOTE | 2021-08-26 12:01 | CM.ED ---
SW Note SW met with Douglas from Hospice. Douglas said that patient is going home with hospice and that family will provide transport. Douglas spoke with RN who confirmed medication has been ordered for patient and for later today. Douglas said that they have also ordered some DME for family. No further SW needs at this time. SW remains available. Plan: Home with [facility]osp[facility]
== END 2021-08-26 13:20 | disposition hospice, home (50) | DRG 330 ==
LOC: ED 09:07 → MS3 14:16
PROVIDERS: Anesthesiology; Internal Medicine; Physician Assistant; Surgery; Admitting Provider Surgery; Emergency Provider Emergency Medicine; PCP Internal Medicine; Visit Provider Student in an Organized Health Care Education/Training Program
PROC: 0DJD8ZZ Inspection of Lower Intestinal Tract, Via Natural or Artificial Opening Endoscopic (ICD-10-PCS; CPT 45378; principal; 2021-08-09 14:10)
PROC: 0D1M0Z4 Bypass Descending Colon to Cutaneous, Open Approach (ICD-10-PCS; principal; 2021-08-09 18:00)
PROC: 0DJ08ZZ Inspection of Upper Intestinal Tract, Via Natural or Artificial Opening Endoscopic (ICD-10-PCS; CPT 43235; principal; 2021-08-25 15:25)
DX: C78.5 Secondary malignant neoplasm of large intestine and rectum (principal); K56.7 Ileus, unspecified; N17.9 Acute kidney failure, unspecified; C18.4 Malignant neoplasm of transverse colon; I25.10 Atherosclerotic heart disease of native coronary artery without angina pectoris; I10 Essential (primary) hypertension; E78.5 Hyperlipidemia, unspecified; E03.9 Hypothyroidism, unspecified; F41.9 Anxiety disorder, unspecified; K21.9 Gastro-esophageal reflux disease without esophagitis; Z66 Do not resuscitate; E87.6 Hypokalemia; E83.42 Hypomagnesemia; E83.39 Other disorders of phosphorus metabolism; E86.0 Dehydration; Z95.1 Presence of aortocoronary bypass graft; Z79.899 Other long term (current) drug therapy; Z53.8 Procedure and treatment not carried out for other reasons; Z86.73 Personal history of transient ischemic attack (TIA), and cerebral infarction without residual deficits; Z90.49 Acquired absence of other specified parts of digestive tract; Z87.891 Personal history of nicotine dependence
CPT/HCPCS: 36415; 36569; 74018; 74019; 74176; 74177; 74250; 74283; 80048; 80053; 81001; 82247; 82248; 82962; 83605; 83690; 83735; 84100; 84132; 84443; 84478; 84484; 85025; 85610; 85730; 86850; 86870; 86900; 86901; 86905; 86920; 86922; 88309; 88313; 88341; 88342; 93005; 97110; 97161; 97162; 97164; 97166; 97530; 97535; 97802; 97803; 99281; 99283; J7030; J7040; J7050; J7120; Q9967; A4216; J1940; J2405; J3490; J7799